=== PATIENT | female | born 1960 | race Caucasian/White ===

== ENCOUNTER 2017-08-09 13:40 | Emergency (ER) | payer MEDICARE, MEDICAID, SELFPAY ==
--- NOTE | 2017-08-09 | CT_ITS ---
CT abdomen pelvis wo con CLINICAL INDICATION: Left-sided flank pain ITS.REASON: ABD PAIN ORDERING PHYSICIAN: Tamara Chaudhari MD PATIENT AGE: 56 years COMPARISON: None TECHNIQUE: Axial images obtained with sagittal and coronal reformats. PROCEDURE: Oral Contrast: None IV Contrast: None . FINDINGS: There is a noncalcified 11 mm nodule in the right lower lobe and a calcified granuloma in left lower lobe. Prior cholecystectomy without ductal dilatation. No focal liver lesion. Spleen and adrenal glands have an unremarkable appearance. No obvious pancreatic mass. There is some minimal stranding of the fat along the superior mesenteric axis which is nonspecific. No renal calculi or hydronephrosis. No ureteral calculus or urinary bladder calculus. Unremarkable appendix. Mild thickening versus nondistention of the descending and sigmoid colon. There Is diverticulosis within the sigmoid colon but no evidence of diverticulitis. No intestinal obstruction or free air. No pelvic mass or abnormal fluid collection. Prior hysterectomy. No acute bony anomalies. IMPRESSION: 1. Mild thickening versus nondistention of the descending and sigmoid colon. Colitis is a consideration. There is diverticulosis but no evidence of diverticulitis. 2. Minimal stranding of the mesenteric fat along the mesenteric axis nonspecific 3. 11 mm right lower lobe nodule noncalcified. Considered dedicated outpatient CT chest without and with contrast for further evaluation
[2017-08-09 13:46] VITALS: BP 169/104; PULSE 103; RESP 18; TEMP 36.7; O2SAT 98; BMI 33.1
[2017-08-09 14:28] LABS: Basophils % 0.6 % (0.1-2.0); Eosinophils # 0.2 K/mm3 (0.0-0.4); Eosinophils % 2.6 % (0.1-12.0); Hematocrit 43.9 % (37.0-47.0); Hemoglobin 13.7 g/dL (12.2-16.2); Lymphocytes # 2.2 K/mm3 (0.7-4.5); Lymphocytes % 31.1 K/mm3 (10-50); Mean Corpuscular HGB Conc 31.3 g/dL (31.8-35.4); Mean Corpuscular Hemoglobin 26.6 pg (27.0-31.2); Mean Platelet Volume 7.1 fl (7.4-10.4); Monocytes # 0.3 K/mm3 (0.1-1.0); Monocytes % 3.6 % (1.7-9.3); Neutrophils # 4.3 K/mm3 (1.8-7.8); Platelet Count 287 K/mm3 (142-424); Red Blood Count 5.16 M/mm3 (4.20-5.40); Red Cell Distribution Width 13.9 % (11.5-17.5); White Blood Count 6.9 K/mm3 (4.8-10.8)
--- NOTE | 2017-08-09 14:36 | HMH.EDABDPAI ---
ED Disposition Clinical Impression: Colitis, Lung nodule, Hypokalemia Disposition: Home, Self-Care Condition on Discharge: Good Instructions: DI for Acute Abdomen Additional Instructions: Patient was given a copy of her CT scan after discussing the results: IMPRESSION: 1. Mild thickening versus nondistention of the descending and sigmoid colon. Colitis is a consideration. There is diverticulosis but no evidence of diverticulitis. 2. Minimal stranding of the mesenteric fat along the mesenteric axis nonspecific 3. 11 mm right lower lobe nodule noncalcified. Considered dedicated outpatient CT chest without and with contrast for further evaluation 1- start abx flagyl 500 mg tid. 2- bentyl prn cramps. 3- gotratde and pedialyte. 4- diet rich in potassium. 5- follow up with Dr Denny on your CT repoort , lung nodule and untill better. Prescriptions: Dicyclomine HCl [Bentyl 10mg capsule] 10 mg PO Q8HP PRN #21 capsule PRN Reason: Cramping metroNIDAZOLE [Flagyl] 500 mg PO Q8 #21 tablet Referrals: Js Marie MD [Primary Care Provider] - - Critical Care Critical Care Time: No Attestation: On 08/09/17, the high probability of a clinically significant, sudden or life threatening deterioration of the following system(s) required my full and direct attention, intervention and personal management. The time I documented below is in addition to time spent performing reported procedures but includes the following listed in this critical care notation. Medical Decision Making - Medical Records Medical records reviewed: Yes: I reviewed the patient's medical records. Vital Signs: 08/09/17 13:46 Temperature 98.0 F Temperature Source Oral Pulse Rate [Right Brachial] 103 H Respiratory Rate 18 Blood Pressure [Right Arm] 169/104 Blood Pressure Mean [Right Arm] 125 Blood Pressure Source [Right Arm] Automatic Cuff Blood Pressure Position [Right Arm] Sitting 02 Sat by Pulse Oximetry 98 Oxygen Delivery Method Room Air - Lab Data Lab Results 08/09/17 14:14: WBC 6.9, RBC 5.16, Hgb 13.7, Hct 43.9, MCV 85.0, MCH 26.6 L, MCHC 31.3 L, RDW 13.9, Plt Count 287, MPV 7.1 L, Neut % (Auto) 62.0, Lymph % (Auto) 31.1, [place] % (Auto) 3.6, Eos % (Auto) 2.6, Baso % (Auto) 0.6, Neut # (Auto) 4.3, Lymph # (Auto) 2.2, [place] # (Auto) 0.3, Eos # (Auto) 0.2, Baso # (Auto) 0.0 08/09/17 14:14: Sodium 141, Potassium 3.4 L, Chloride 105, Carbon Dioxide 29, Anion Gap 10.4, BUN 13, Creatinine 0.86, Estimated Creat Clear 95, Estimated GFR 68, Est GFR ( Amer) 82, Glucose 139 H, Calcium 8.7, Total Bilirubin 0.2, AST 16, ALT 30, Alkaline Phosphatase 102, Total Creatine Kinase 50, CK-MB (CK-2) < 0.5, CK-MB (CK-2) Rel Index 1.0, Troponin I < 0.02, Total Protein 7.7, Albumin 3.8, Globulin 3.9 H, Albumin/Globulin Ratio 1.0 L, Lipase 215 Result diagrams: 08/09/17 14:14 08/09/17 14:14 Orders (Tests/Meds): ED MEDICATIONS Generic Name Dose Route Start Last Admin Trade Name Freq PRN Reason Stop Dose Admin Sodium Chloride 1,000 mls @ 999 mls/hr 08/09/17 14:45 Sod Chloride 0.9% 1000ml Bag IV 08/09/17 15:45 .Q1H1M PEGGY Discontinued Medications Generic Name Dose Route Start Last Admin Trade Name Freq PRN Reason Stop Dose Admin Potassium Chloride 20 meq 08/09/17 15:36 Klor-Con 20meq Tablet PO 08/09/17 15:37 ONCE ONE ORDERS Category Date Time Status Blood Urea Nitrogen Stat Lab 08/09/17 14:08 Ordered Creatinine,Serum Stat Lab 08/09/17 14:08 Ordered Urinalysis and Microscopic Stat Lab 08/09/17 14:39 Ordered - CT Data CT Scan: Abdomen, Pelvis Time Received: 15:[address] Reviewed: Yes: I have viewed the radiologist's interpretation Preliminary Findings: Abnormal - Chalo Inquiry Pt receiving controlled substance: No Chalo was queried for this patient: No Medical Decision Making Narrative: I discussed with the patient her CT report below: IMPRESSION: 1. Mild thickening versu
--- NOTE | 2017-08-09 14:39 | ED_ITS ---
ED Disposition Clinical Impression: Colitis, Lung nodule, Hypokalemia Disposition: Home, Self-Care Condition on Discharge: Good Instructions: DI for Acute Abdomen Additional Instructions: Patient was given a copy of her CT scan after discussing the results: IMPRESSION: 1. Mild thickening versus nondistention of the descending and sigmoid colon. Colitis is a consideration. There is diverticulosis but no evidence of diverticulitis. 2. Minimal stranding of the mesenteric fat along the mesenteric axis nonspecific 3. 11 mm right lower lobe nodule noncalcified. Considered dedicated outpatient CT chest without and with contrast for further evaluation 1- start abx flagyl 500 mg tid. 2- bentyl prn cramps. 3- gotratde and pedialyte. 4- diet rich in potassium. 5- follow up with Dr Denny on your CT repoort , lung nodule and untill better. Prescriptions: Dicyclomine HCl [Bentyl 10mg capsule] 10 mg PO Q8HP PRN #21 capsule PRN Reason: Cramping metroNIDAZOLE [Flagyl] 500 mg PO Q8 #21 tablet Referrals: Js Marie MD [Primary Care Provider] - - Critical Care Critical Care Time: No Attestation: On 08/09/17, the high probability of a clinically significant, sudden or life threatening deterioration of the following system(s) required my full and direct attention, intervention and personal management. The time I documented below is in addition to time spent performing reported procedures but includes the following listed in this critical care notation. Medical Decision Making - Medical Records Medical records reviewed: Yes: I reviewed the patient's medical records. Vital Signs: 08/09/17 13:46 Temperature 98.0 F Temperature Source Oral Pulse Rate [Right Brachial] 103 H Respiratory Rate 18 Blood Pressure [Right Arm] 169/104 Blood Pressure Mean [Right Arm] 125 Blood Pressure Source [Right Arm] Automatic Cuff Blood Pressure Position [Right Arm] Sitting 02 Sat by Pulse Oximetry 98 Oxygen Delivery Method Room Air - Lab Data Lab Results 08/09/17 14:14: WBC 6.9, RBC 5.16, Hgb 13.7, Hct 43.9, MCV 85.0, MCH 26.6 L, MCHC 31.3 L, RDW 13.9, Plt Count 287, MPV 7.1 L, Neut % (Auto) 62.0, Lymph % ( Auto) 31.1, [place] % (Auto) 3.6, Eos % (Auto) 2.6, Baso % (Auto) 0.6, Neut # (Auto ) 4.3, Lymph # (Auto) 2.2, [place] # (Auto) 0.3, Eos # (Auto) 0.2, Baso # (Auto) 0.0 08/09/17 14:14: Sodium 141, Potassium 3.4 L, Chloride 105, Carbon Dioxide 29, Anion Gap 10.4, BUN 13, Creatinine 0.86, Estimated Creat Clear 95, Estimated GFR 68, Est GFR ( Amer) 82, Glucose 139 H, Calcium 8.7, Total Bilirubin 0.2, AST 16, ALT 30, Alkaline Phosphatase 102, Total Creatine Kinase 50, CK-MB ( CK-2) < 0.5, CK-MB (CK-2) Rel Index 1.0, Troponin I < 0.02, Total Protein 7.7, Albumin 3.8, Globulin 3.9 H, Albumin/Globulin Ratio 1.0 L, Lipase 215 Result diagrams: 08/09/17 14:14 08/09/17 14:14 Orders (Tests/Meds): ED MEDICATIONS Generic Name Dose Route Start Last Admin Trade Name Freq PRN Reason Stop Dose Admin Sodium Chloride 1,000 mls @ 999 mls/hr 08/09/17 14:45 Sod Chloride 0.9% 1000ml Bag IV 08/09/17 15:45 .Q1H1M PEGGY Discontinued Medications Generic Name Dose Route Start Last Admin Trade Name Freq PRN Reason Stop Dose Admin Potassium Chloride 20 meq 08/09/17 15:36 Klor-Con 20meq Tablet PO 08/09/17 15:37 ONCE ONE
[2017-08-09 14:44] LABS: Alanine Aminotransferase 30 U/L (12-78); Albumin Level 3.8 gm/dL (3.4-5.0); Alkaline Phosphatase 102 U/L (46-116); Anion Gap 10.4 mEq/L (5-15); Aspartate Amino Transferase 16 U/L (15-37); Bilirubin,Total 0.2 mg/dL (0.2-1.0); Blood Urea Nitrogen 13 mg/dL (7-18); Calcium 8.7 mg/dL (8.5-10.1); Carbon Dioxide 29 mmol/L (21.0-32.0); Chloride 105 mmol/L (98-107); Creatine Kinase 50 U/L (26-192); Creatinine Clearance Estimated 95 mL/min (0-300); Creatinine,Serum 0.86 mg/dL (0.55-1.02); Estimated Glomerular Filt Rate 68 ml/min (>60); GFR (African American) 82 ML/MIN (>60); Globulin 3.9 gm/dl (1.3-3.2); Glucose 139 mg/dL (74-106); Lipase 215 u/L (73-393); Potassium 3.4 mmoL/L (3.5-5.1); Sodium 141 mmol/L (136-145); Total Protein,Serum 7.7 gm/dL (6.4-8.2); Troponin I < 0.02 ng/ml (0.00-0.06)
[2017-08-09 14:53] LABS: Creatine Kinase MB < 0.5 mg/ml (0.0-3.6)
== END 2017-08-09 15:55 | disposition home or self-care (01) ==
PROVIDERS: Emergency Provider Emergency Medicine; Family Provider Internal Medicine Adolescent Medicine; PCP Internal Medicine Adolescent Medicine
DX: K52.9 Noninfective gastroenteritis and colitis, unspecified (principal); R91.1 Solitary pulmonary nodule; E87.6 Hypokalemia; Z88.1 Allergy status to other antibiotic agents
CPT/HCPCS: 74176; 80053; 82550; 82553; 83690; 84484; 85025; 96365; 99282

== ENCOUNTER → 2017-08-14 13:02 | Outpatient (CLI) | payer MEDICARE, MEDICAID, SELFPAY ==
[2017-08-14 13:30] LABS: Blood Urea Nitrogen 12 mg/dL (7-18); Creatinine,Serum 0.81 mg/dL (0.55-1.02); Estimated Glomerular Filt Rate 73 ml/min (>60); GFR (African American) 88 ML/MIN (>60)
--- NOTE | 2017-08-14 13:37 | CT_ITS ---
CT chest wo/w con HISTORY: Solitary pulmonary nodule, lung nodule seen on recent abdomen CT, cough ITS.REASON: LUNG NODULE, TOBACCO USE, COUGH ORDERING PHYSICIAN: Js Marie MD PATIENT AGE: 56 years TECHNIQUE: Axial images obtained without and with contrast. Sagittal and coronal reformatted images are also generated and reviewed. CONTRAST: 75ml Isovue 370 I.V. COMPARISON: Abdomen CT of 08/09/2017 FINDINGS: There is an azygos fissure is a normal variant. Scattered small lymph nodes are present in the mediastinum measuring up to 1.3 x 0.7 cm in the AP window. No hilar adenopathy or mass evident. Normal heart size. No evidence of pericardial effusion. No evidence of aortic aneurysm or dissection. There are mild centrilobular and paraseptal emphysematous changes. A calcified granuloma is present in the right upper lobe. There is a 1 x 0.8 cm noncalcified nodule in the right middle lobe inferiorly. The margins are well-circumscribed. There may be some minimal enhancement of the nodule. There are other calcified granulomas in right and left lungs. No other noncalcified nodules are evident. No lobar consolidation or collapse. No effusions. No acute bony anomalies. Upper abdominal images are unremarkable. IMPRESSION: 1. 10 x 8 mm noncalcified nodule in the right middle lobe. There are other nodules present which are calcified. This may very well represent a noncalcified granuloma. His mid present on an old lateral chest x-ray of 04/17/2011. In view of the patient's history of tobacco use, would recommend 6 month follow-up chest CT to confirm short-term stability. 2. Mild centrilobular and paraseptal emphysematous change.
--- NOTE | 2017-08-14 14:29 | HMH.ITSHM ---
BENTYL,OMEPRAZOLE,FLAGYL
== END ==
PROVIDERS: Family Provider Internal Medicine Adolescent Medicine; PCP Internal Medicine Adolescent Medicine; Visit Provider Internal Medicine Adolescent Medicine
DX: R91.1 Solitary pulmonary nodule (principal); R05 Cough; Z87.891 Personal history of nicotine dependence
CPT/HCPCS: 36415; 71270; 82565; 84520; Q9967

== ENCOUNTER → 2017-09-05 08:30 | Outpatient (POV) | payer MEDICARE, MEDICAID, SELFPAY | PROVIDERS: Visit Provider Thoracic Surgery (Cardiothoracic Vascular Surgery) | DX: Z00.00 Encounter for general adult medical examination without abnormal findings (principal) ==

== ENCOUNTER → 2017-11-20 16:01 | Outpatient (CLI) | payer MEDICARE, MEDICAID, SELFPAY ==
--- NOTE | 2017-11-20 16:17 | MR_ITS ---
MR lumbar spine wo con, MR 3-d myelogram/MRCP HISTORY: Low back pain, episodes on inability to move right leg LBP. Bilateral foot numbness on Plantar aspect. ITS.REASON: ACUTE RADICULAR LOW BACK PAIN ORDERING PHYSICIAN: Kathleen Scruggs PATIENT AGE: 57 years TECHNIQUE: Standard multiplanar multiecho sequences are performed without contrast. 3-D MIP and myelographic images are also rendered and reviewed FINDINGS: Spinal cord is at the T12-L1 level. There is normal alignment. T12-L1, L1-L2, L2-L3 and L3-L4 have an unremarkable appearance. L4-5: Mild concentric bulging disc with moderate facet and ligamentum flavum hypertrophic change right with moderate right lateral recess narrowing abutting the posterior lateral aspect of the L5 nerve root. There is mild right-sided foraminal narrowing. L5-S1: Mild concentric bulging disc. No extruded herniated disc or canal stenosis. IMPRESSION: 1. Bulging disc with moderate facet and ligamentum flavum hypertrophic change right with moderate right lateral recess narrowing abutting the posterior lateral aspect of the L5 nerve root. There is mild right-sided foraminal narrowing. 2. Mild bulging disc at L5-S1 3. No disc herniation or canal stenosis
[2017-11-20 19:22] LABS: Alanine Aminotransferase 27 U/L (12-78); Albumin Level 3.8 gm/dL (3.4-5.0); Albumin/Globulin Ratio 1.1 (1.1-1.8); Alkaline Phosphatase 100 U/L (46-116); Aspartate Amino Transferase 17 U/L (15-37); Bilirubin,Total 0.2 mg/dL (0.2-1.0); Blood Urea Nitrogen 18 mg/dL (7-18); Calcium 9.4 mg/dL (8.5-10.1); Carbon Dioxide 30 mmol/L (21.0-32.0); Chloride 103 mmol/L (98-107); Creatinine,Serum 0.96 mg/dL (0.55-1.02); Estimated Glomerular Filt Rate 59 ml/min (>60); GFR (African American) 72 ML/MIN (>60); Globulin 3.6 gm/dl (1.3-3.2); Glucose 86 mg/dL (74-106); Magnesium 1.9 mg/dL (1.4-2.2); Sodium 142 mmol/L (136-145); Total Protein,Serum 7.4 gm/dL (6.4-8.2)
== END ==
PROVIDERS: Family Provider Internal Medicine Adolescent Medicine; Visit Provider Nurse Practitioner Family
DX: M54.16 Radiculopathy, lumbar region (principal)
CPT/HCPCS: 36415; 72148; 76376; 80053; 83735

== ENCOUNTER 2017-12-05 10:30 | Outpatient (RCR) | payer MEDICARE, MEDICAID, SELFPAY | END 2017-12-05 10:31 | disposition home or self-care (01) | LOC: PT 10:30 | PROVIDERS: Family Provider Internal Medicine Adolescent Medicine; Visit Provider Nurse Practitioner Family | DX: M54.16 Radiculopathy, lumbar region (principal) | CPT/HCPCS: 97010; 97014; 97110; 97140; 97163; G0283 ==

== ENCOUNTER → 2018-03-18 10:04 | Outpatient (CLI) | payer MEDICARE, MEDICAID, SELFPAY ==
[2018-03-18 10:35] LABS: Blood Urea Nitrogen 11 mg/dL (7-18); Estimated Glomerular Filt Rate 64 ml/min (>60); GFR (African American) 78 ML/MIN (>60)
--- NOTE | 2018-03-18 10:47 | CT_ITS ---
CT chest wo/w con HISTORY: Follow-up pulmonary nodule ITS.REASON: LUNG NODULE ORDERING PHYSICIAN: Juan Haley MD PATIENT AGE: 57 years COMPARISON: 08/14/2017 Technique: Axial images obtained without and with contrast. Sagittal and coronal reformats are also generated and reviewed. All CT scans at the facility use one or more dose reduction, viz: automated exposure control, ma/kV adjustment per patient size (including targeted exams where dose is matched to indication, i.e. head), or iterative reconstruction technique. FINDINGS: Scattered small nodes are present within the mediastinum. These are not significantly changed. There is an azygos fissure is a normal variant. No mediastinal or hilar mass or adenopathy is evident. A few of these nodes contain calcium. There are coronary artery calcifications. The heart size is normal. No evidence of pericardial effusion. There are mild centrilobular and paraseptal emphysematous changes. There are scattered calcified granulomas. A well-circumscribed right middle lobe nodule is once again noted. The nodule is noncalcified and measures 9 x 8 mm not significantly changed. There is an additional 4 mm noncalcified nodule along the right hemidiaphragm posteriorly. This was present on the previous study but not as apparent due to the slice orientation. This is not significantly changed. Upper abdominal images are unremarkable. No acute bony anomalies evident. IMPRESSION: 1. Stable CT appearance of the chest. 2. No change in the 1 cm right middle lobe noncalcified nodule. 12 month follow-up recommended 3. Mild centrilobular and paraseptal emphysema with old granulomatous disease
== END ==
PROVIDERS: Family Provider Internal Medicine Adolescent Medicine; PCP Internal Medicine Adolescent Medicine; Visit Provider Thoracic Surgery (Cardiothoracic Vascular Surgery)
DX: R91.1 Solitary pulmonary nodule (principal)
CPT/HCPCS: 36415; 71270; 82565; 84520; Q9967

== ENCOUNTER → 2018-04-13 11:01 | Outpatient (CLI) | payer MEDICARE, MEDICAID, SELFPAY ==
--- NOTE | 2018-04-13 11:05 | NM_ITS ---
History and Indications: Hypertension, family history, chest pain, shortness of breath, palpitations and fatigue Procedure: Patient received a 0.4 mg of intravenous Lexiscan, resting heart rate was 79 beats per resting blood pressure 144/86, with Lexiscan maximum heart rate achieved was 1 23 bpm which is less than 85% of the maximum predicted heart rate and a blood pressure was 164 with 89. With Lexiscan patient complained of shortness of breath Electrocardiogram: Resting echocardiogram showed sinus rhythm, with Lexiscan there is less than 1.[address] segment depression noted from the baseline EKG. The EKG portion of the Lexiscan Myoview is nondiagnostic. Cardiac stress and resting SPECT images: Cardiac stress and resting SPECT images were obtained using technetium 99 Myoview 30.9 mCi at stress than 10.2 mCi at rest gated SPECT further analysis of segmental wall motion and calculation of the ejection fraction also done. Cardiac stress and rest SPECT images show uniform myocardial activity without any difficulty, computer derived ejection fraction is over 65% with no regional wall motion abnormality, right ventricle is normal size and contractility. Conclusion: 1. The EKG portion of the Lexiscan Myoview is nondiagnostic. 2. No scintigraphic evidence of reversible ischemia seen. 3. The ejection fraction is over 65% with no regional wall motion abnormality, right ventricle is normal size and contractility. 4. Normal Lexiscan Myoview study.
--- NOTE | 2018-04-13 12:58 | HMH.ITSHM ---
LISINOPRIL OMEPRAZOLE ALIVE MULTIVITAMIN VITAMINE K-2 SPIRIVA
== END ==
PROVIDERS: Family Provider Internal Medicine Adolescent Medicine; PCP Internal Medicine Adolescent Medicine; Visit Provider Internal Medicine Adolescent Medicine
DX: R07.9 Chest pain, unspecified (principal)
CPT/HCPCS: 78452; 93017; A9502; J2785

== ENCOUNTER → 2018-04-24 08:25 | Outpatient (POV) | payer MEDICARE, MEDICAID, SELFPAY | PROVIDERS: Visit Provider Thoracic Surgery (Cardiothoracic Vascular Surgery) | DX: Z00.00 Encounter for general adult medical examination without abnormal findings (principal) ==

== ENCOUNTER → 2018-10-21 14:29 | Outpatient (CLI) | payer MEDICARE, MEDICAID, SELFPAY ==
--- NOTE | 2018-10-21 14:33 | XR_ITS ---
XR chest 2V HISTORY: ITS.REASON: COUGH,HEMOPTYSIS ORDERING PHYSICIAN: Kathleen Scruggs PATIENT AGE: 57 years COMPARISON: 09/20/2018 FINDINGS: The cardiomediastinal silhouette and pulmonary vascularity are within normal limits. There is a patchy density noted in the right lung base medially which has developed since this exam is limited due to an area of pneumonia. Remaining lungs are clear. No acute bony findings. Calcification noted inferior to the right acromion and may be due to spurring or calcific tendinitis. There is an azygos fissure is a normal variant IMPRESSION: Patchy area of pneumonia in right lung base medially which has developed in the interval
[2018-10-21 14:54] LABS: Basophils # 0.1 K/mm3 (0-0.2); Eosinophils # 0.4 K/mm3 (0.0-0.4); Eosinophils % 5.7 % (0.1-12.0); Hemoglobin 13.8 g/dL (12.2-16.2); Lymphocytes % 26.5 % (10-50); Mean Corpuscular HGB Conc 32.1 g/dL (31.8-35.4); Mean Corpuscular Hemoglobin 26.7 pg (27.0-31.2); Mean Platelet Volume 6.5 fl (7.4-10.4); Monocytes # 0.3 K/mm3 (0.1-1.0); Monocytes % 4.1 % (1.7-9.3); Neutrophils # 4.7 K/mm3 (1.8-7.8); Neutrophils % 62.7 % (37.0-80.0); Platelet Count 331 K/mm3 (142-424); Red Blood Count 5.19 M/mm3 (4.20-5.40); Red Cell Distribution Width 14.5 % (11.5-17.5); White Blood Count 7.6 K/mm3 (4.8-10.8)
[2018-10-21 18:32] LABS: Alanine Aminotransferase 29 U/L (12-78); Albumin Level 4.1 gm/dL (3.4-5.0); Albumin/Globulin Ratio 1.2 (1.1-1.8); Alkaline Phosphatase 103 U/L (46-116); Anion Gap 15.4 mEq/L (5-15); Aspartate Amino Transferase 17 U/L (15-37); Bilirubin,Total 0.5 mg/dL (0.2-1.0); Blood Urea Nitrogen 11 mg/dL (7-18); Calcium 9.5 mg/dL (8.5-10.1); Carbon Dioxide 26 mmol/L (21.0-32.0); Chloride 106 mmol/L (98-107); Creatinine,Serum 0.82 mg/dL (0.55-1.02); Estimated Glomerular Filt Rate 71 ml/min (>60); GFR (African American) 86 ML/MIN (>60); Globulin 3.5 gm/dl (1.3-3.2); Glucose 80 mg/dL (74-106); Potassium 4.4 mmoL/L (3.5-5.1); Sodium 143 mmol/L (136-145); Total Protein,Serum 7.6 gm/dL (6.4-8.2)
== END ==
PROVIDERS: PCP Internal Medicine Adolescent Medicine; Visit Provider Nurse Practitioner Family
DX: R04.2 Hemoptysis (principal)
CPT/HCPCS: 36415; 71046; 80053; 85025

== ENCOUNTER → 2018-10-22 13:13 | Outpatient (CLI) | payer MEDICARE, MEDICAID, SELFPAY | PROVIDERS: Visit Provider Internal Medicine Adolescent Medicine | DX: R04.2 Hemoptysis | CPT/HCPCS: 87070; 87205 ==

== ENCOUNTER → 2018-11-23 09:37 | Outpatient (CLI) | payer MEDICARE, MEDICAID, SELFPAY ==
[2018-11-23 10:55] VITALS: PULSE 82; PULSE 89
--- NOTE | 2018-11-23 11:21 | XR_ITS ---
XR chest 2V HISTORY: ITS.REASON: RLL PNEUMONIA, PLEURITIC CHEST PAIN ORDERING PHYSICIAN: Kathleen Scruggs APRN PATIENT AGE: 58 years COMPARISON: 10/21/2018 FINDINGS: The cardiomediastinal silhouette and pulmonary vascularity are within normal limits. The lungs are clear without infiltrates, suspicious nodules, or pleural effusions. Previously noted infiltrate in the right lung base has improved. Calcified granuloma noted along the left lower lobe. There is an azygos fissure is normal variant No acute bony abnormalities. IMPRESSION: No acute finding
== END ==
PROVIDERS: PCP Nurse Practitioner Family; Visit Provider Nurse Practitioner Family
DX: J18.1 Lobar pneumonia, unspecified organism (principal); R07.81 Pleurodynia; J44.9 Chronic obstructive pulmonary disease, unspecified; R06.02 Shortness of breath
CPT/HCPCS: 71046; 94060; 94640; 94726; 94729

== ENCOUNTER 2018-12-11 09:31 | Day surgery (SDC) | payer MEDICARE, MEDICAID, SELFPAY ==
[2018-12-08 12:30] VITALS: BMI 32.8
[2018-12-11] VITALS (8 sets, daily range): BP systolic 124–144; BP diastolic 71–91; PULSE 76–89; RESP 16–18; TEMP 36.6–37.1; O2SAT 95–98
--- NOTE | 2018-12-11 10:40 | HMH.ANESCL ---
[facility] Anesthesia Checklist - Patient Identification Patient Identification: Arm Band, Verbal (Name & ) - Structural Data Admitted From: Home Planned Operative Procedure/s: EGD Consent for Planned Operative Procedure(s) Verified: Yes Verified Documents: Surgical Consent, History and Physical - NPO Status Verified Time NPO: 00:00 - Additional verifications Anesthesia Reactions: No - Airway Assessment C-Spine Mobility Assessed: Yes TMJ Mobility Assessed: Yes Dentition: Poor Dentition (Missing teeth) - Neurological Assessment Level of Consciousness: Awake, Alert, Appropriate, Follows Commands Hx Seizures: No Numbness or tingling in extremities: No - Anesthesia Plan Anesthesia Risk discussed: Yes Anesthesia Plan: Verified ASA Class: III Anesthesia Type: MAC [facility] History I have reviewed the patient's past medical history: Yes 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: Reports:: Chronic Obstructive Pulmonary Disease (COPD), Gastroesophageal Reflux Disease(GERD), Hypertension, Transient Ischemic Attacks (TIA) Denies:: Diabetes Mellitus Type 1, Diabetes Mellitus Type 2, Internal Pacemaker, MRSA, Seizures *Have you ever received a pneumonia vaccine?: No (NA) *Have you received a flu vaccine this season?: No Other 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: Reports: Anemia Other Surgeries: Yes: Cholecystectomy, Hysterectomy-Total, Tubal Ligation. No: Pacemaker Amputation: No - *Social History Smoking Status: Former smoker Tobacco Type: cigarettes Alcohol Intake: never *Occupational Status:: retired *Travel in the last 8 weeks: None (Unknown) Family Hx:: Heart Attack, Cancer
--- NOTE | 2018-12-11 10:59 | P.PCN_ITS ---
[facility] Procedure Note Procedure Note:: Upper Endoscopy Procedure Report: Esophagogastroduodenoscopy with cold biopsies and TTS balloon dilation Endoscopost: Brayden Funez II, MD Referring Physician: Js Marie M.D. Date of Procedure: December 11, 2018 Equipment: Olympus GIF 180 standard upper endoscope Sedation: MAC sedation Indications: Mrs. Bourgeois is a 58-year-old female who is here for diagnostic upper endoscopy secondary to dysphagia, reflux and intermittent dyspepsia. She formerly had nausea, vomiting and regurgitation. She was having some coughing. The patient does have some belching and bloating. Her heartburn and reflux are controlled with pantoprazole and ranitidine. She does have some dysphagia to breads and meats. She has some globus sensation. The patient did have a colonoscopy in April 2017. She does have some irritable bowel syndrome. Her colonoscopy showed 4 colon polyps (tubular adenomas x4) which were removed. Procedure: Prior to the procedure, a history and physical exam was performed, and patient's medications and allergies were reviewed. The risks, benefits and alternatives of the sedation and procedure were discussed with the patient. All questions were answered and informed consent was obtained. The patient was brought to the procedure room. Patient identification and proposed procedure were verified by the physician and the nurse. The patient was placed in a left lateral decubitus position and the scope was passed under direct vision. Throughout the procedure, the patient's blood pressure, pulse, and oxygen saturations were monitored continuously. The upper GI endoscopy was accomplished without difficulty. The patient tolerated the procedure well. Findings: The scope was passed directly into the upper esophagus and advanced to the third portion of the duodenum. The post bulbar duodenum and duodenal bulb were normal with normal mucosa and conniventes. The scope was withdrawn through a normal duodenal bulb and pylorus into the stomach. There was some bile reflux with linear reactive gastropathy and minor erosive gastropathy. The remainder of the antrum, body and fundus of the stomach were grossly normal. Upon retroflexion there was a very small 1 to 2 cm hiatal hernia. 2 biopsies were taken in the antrum and along the lesser curvature for histology to rule out gastritis and/or H pylori. The scope was then withdrawn into the esophagus. There was a distal esophageal ring/Schatzki's ring. There was no evidence of reflux esophagitis or Diallo's. There were tertiary contractions and evidence of moderate esophageal dysmotility. The entire esophagus was dilated to 60 [place]/20 mm with shattering of the Schatzki's ring. There was also some resistance at the cricopharyngeus/cricopharyngeal spasm. The remainder of the esophageal mucosa was normal. Impression: 1. Cricopharyngeal spasm status post dilation to 20 mm 2. Schatzki's ring dilated to 20 mm 3. Nonerosive GERD with mild esophageal dysmotility and small hiatal hernia (1 to 2 cm) 4. Bile reflux with linear reactive gastropathy Plan: I will discussed the findings with patient and family. The patient should improve with dilation of the esophagus. The patient is clinically improved with her nausea and vomiting. I will follow up the biopsies.
== END 2018-12-11 11:50 | disposition home or self-care (01) ==
LOC: OUTP 09:33
PROVIDERS: PCP Internal Medicine Adolescent Medicine; Visit Provider Internal Medicine Gastroenterology
PROC: 0DJ08ZZ Inspection of Upper Intestinal Tract, Via Natural or Artificial Opening Endoscopic (ICD-10-PCS; CPT 43235; principal; 2018-12-11 10:30)
DX: Z86.010 Personal history of colon polyps (principal); J39.2 Other diseases of pharynx; K22.2 Esophageal obstruction; K21.9 Gastro-esophageal reflux disease without esophagitis; K22.4 Dyskinesia of esophagus; K44.9 Diaphragmatic hernia without obstruction or gangrene; K31.9 Disease of stomach and duodenum, unspecified
CPT/HCPCS: 43239; 43249; 88305; C1726

== ENCOUNTER → 2018-12-28 14:49 | Outpatient (CLI) | payer MEDICARE, MEDICAID, SELFPAY ==
[2018-12-28 15:03] LABS: Basophils # 0.1 K/mm3 (0-0.2); Basophils % 0.8 % (0.1-2.0); Eosinophils # 0.4 K/mm3 (0.0-0.4); Eosinophils % 6.9 % (0.1-12.0); Hematocrit 41.3 % (37.0-47.0); Hemoglobin 12.7 g/dL (12.2-16.2); Lymphocytes # 2.1 K/mm3 (0.7-4.5); Lymphocytes % 34.3 % (10-50); Mean Corpuscular HGB Conc 30.7 g/dL (31.8-35.4); Mean Corpuscular Volume 81.4 fl (81-99); Mean Platelet Volume 7.2 fl (7.4-10.4); Monocytes # 0.3 K/mm3 (0.1-1.0); Monocytes % 4.4 % (1.7-9.3); Neutrophils # 3.3 K/mm3 (1.8-7.8); Neutrophils % 53.7 % (37.0-80.0); Platelet Count 271 K/mm3 (142-424); Red Blood Count 5.08 M/mm3 (4.20-5.40); Red Cell Distribution Width 14.2 % (11.5-17.5); White Blood Count 6.1 K/mm3 (4.8-10.8)
[2018-12-28 19:36] LABS: Blood Urea Nitrogen 14 mg/dL (7-18); Calcium 8.9 mg/dL (8.5-10.1); Carbon Dioxide 27 mmol/L (21.0-32.0); Chloride 108 mmol/L (98-107); Creatinine,Serum 0.84 mg/dL (0.55-1.02); Estimated Glomerular Filt Rate 69 ml/min (>60); GFR (African American) 84 ML/MIN (>60); Glucose 162 mg/dL (74-106); Sodium 144 mmol/L (136-145)
[2018-12-29 09:56] LABS: Hemoglobin A1C 6.3 % (0.0-7.0)
[2019-01-03 21:42] LABS: Immunoglobulin E, Total 175 IU/mL (6-495)
== END ==
PROVIDERS: Visit Provider Nurse Practitioner Family
DX: J44.9 Chronic obstructive pulmonary disease, unspecified (principal); I10 Essential (primary) hypertension; Z79.899 Other long term (current) drug therapy
CPT/HCPCS: 36415; 80048; 82785; 83036; 85025

== ENCOUNTER → 2019-02-01 09:01 | Outpatient (POV) | payer MEDICARE, MEDICAID, SELFPAY | PROVIDERS: PCP Nurse Practitioner Family; Visit Provider Nurse Practitioner Family | DX: Z00.00 Encounter for general adult medical examination without abnormal findings (principal) ==

== ENCOUNTER → 2019-03-24 13:32 | Outpatient (POV) | payer MEDICARE, MEDICAID, SELFPAY | DX: Z00.00 Encounter for general adult medical examination without abnormal findings (principal) ==

== ENCOUNTER → 2020-02-15 09:47 | Outpatient (CLI) | payer MEDICARE, MEDICAID, SELFPAY ==
[2020-02-15 10:28] LABS: Basophils % 0.8 % (0.1-2.0); Eosinophils # 0.2 K/mm3 (0.0-0.4); Eosinophils % 3.1 % (0.1-12.0); Hemoglobin 13.6 g/dL (12.2-16.2); Lymphocytes # 1.6 K/mm3 (0.7-4.5); Lymphocytes % 33.6 % (10-50); Mean Corpuscular HGB Conc 32.5 g/dL (31.8-35.4); Mean Corpuscular Hemoglobin 27.7 pg (27.0-31.2); Mean Corpuscular Volume 85.3 fl (81-99); Mean Platelet Volume 7.3 fl (7.4-10.4); Monocytes # 0.2 K/mm3 (0.1-1.0); Monocytes % 4.8 % (1.7-9.3); Neutrophils # 2.8 K/mm3 (1.8-7.8); Neutrophils % 57.8 % (37.0-80.0); Platelet Count 243 K/mm3 (142-424); Red Blood Count 4.92 M/mm3 (4.20-5.40); Red Cell Distribution Width 14.7 % (11.5-17.5); White Blood Count 4.9 K/mm3 (4.8-10.8)
[2020-02-15 10:37] LABS: Hemoglobin A1C 5.7 % (4.0-6.0)
[2020-02-15 10:51] LABS: Chloride 106 mmol/L (98-107); Potassium 4.4 mmoL/L (3.5-5.1); Sodium 141 mmol/L (136-145)
[2020-02-15 10:54] LABS: Alanine Aminotransferase 17 U/L (12-78); Albumin Level 4.1 g/dl (3.5-5.0); Albumin/Globulin Ratio 1.6 (1.1-1.8); Alkaline Phosphatase 82 U/L (38-126); Anion Gap 10.4 mEq/L (5-15); Aspartate Amino Transferase 21 U/L (14-36); Bilirubin,Total 0.5 mg/dl (0.2-1.3); Blood Urea Nitrogen 14 mg/dl (7-17); Carbon Dioxide 29 mmol/L (22.0-30.0); Cholesterol 175 mg/dl (140-200); Estimated Glomerular Filt Rate 73 ml/min (>60); GFR (African American) 88 ML/MIN (>60); Globulin 2.5 g/dL (1.3-3.2); Glucose 95 mg/dl (74-100); Total Protein,Serum 6.6 g/dl (6.3-8.2); Triglycerides 87 mg/dl (30-150); VLDL Cholesterol 17 mg/dL (0-40)
[2020-02-15 10:55] LABS: Chol/HDL Ratio 2.7 (1-3.5); HDL Cholesterol 64 mg/dl (40-60)
[2020-02-15 11:05] LABS: Direct LDL Cholesterol 89.14 mg/dL (100-129)
[2020-02-15 11:25] LABS: Thyroid Stimulating Hormone 1.46 uIU/mL (0.465-4.68)
[2020-02-17 08:56] LABS: Vitamin B12 357 pg/mL (232-1245)
== END ==
PROVIDERS: Visit Provider Nurse Practitioner Family
DX: R73.9 Hyperglycemia, unspecified (principal); I10 Essential (primary) hypertension; R53.81 Other malaise; K21.9 Gastro-esophageal reflux disease without esophagitis
CPT/HCPCS: 36415; 80053; 80061; 82607; 83036; 84443; 85025

== ENCOUNTER → 2020-02-29 16:46 | Outpatient (CLI) | payer MEDICARE, MEDICAID, SELFPAY | PROVIDERS: PCP Internal Medicine Adolescent Medicine; Visit Provider Internal Medicine Adolescent Medicine | DX: Z20.828 Contact with and (suspected) exposure to other viral communicable diseases (principal) | CPT/HCPCS: U0003 ==

== ENCOUNTER 2020-03-09 10:12 | Emergency (ER) | payer MEDICARE, MEDICAID, SELFPAY ==
[2020-03-09] VITALS (7 sets, daily range): BP systolic 138–195; BP diastolic 85–106; PULSE 82–95; RESP 18; TEMP 36.7–37.4; O2SAT 94–97; BMI 33.3
--- NOTE | 2020-03-09 10:25 | CT_ITS ---
PROCEDURE: CT ABDOMEN PELVIS W CON CLINICAL INDICATION: abd pain Left-sided pelvic pain, positive for shultz virus, history of uterine cancer COMPARISON: CT ABDPELWO CT abdomen pelvis wo con from 07/18/2018 TECHNIQUE: IV Contrast: 75ML OPTIRAY 350 Oral Contrast None Axial images obtained with sagittal and coronal reformats. All CT scans at the facility use one or more dose reduction, viz: automated exposure control, ma/kV adjustment per patient size (including targeted exams where dose is matched to indication, i.e. head), or iterative reconstruction technique. FINDINGS: LOWER THORAX: Infiltrate is present in the right lower lobe posteriorly. There is a noncalcified 9 mm nodule in the right middle lobe not significantly changed. Calcified granuloma is present in the left lower lobe. ABDOMEN & PELVIS: There are post cholecystectomy changes the spleen, adrenal glands, and pancreas have an unremarkable appearance. No renal or ureteral calculi. No hydronephrosis. There is increased density of the central mesenteric fat with a few scattered small mesenteric lymph nodes which is not appear significantly changed. There is no evidence of appendicitis. The cecum is midline and the appendix is to the left of midline. There is diverticulosis of the descending and sigmoid colon. No evidence of diverticulitis. There has been a prior hysterectomy. There are few scattered small nodes in the inguinal regions. No acute bony findings. IMPRESSION: 1. Right lower lobe pneumonia 2. Nida mesenteric sign nonspecific not significantly changed may be seen with chronic inflammation/mesenteric adenitis 3. Other nonacute findings as described above Dictated by: Mike Elder MD 03/09/2020 12:04 Mike Elder MD in [place] 03/09/2020 12:04
--- NOTE | 2020-03-09 10:25 | XR_ITS ---
PROCEDURE: XR CHEST PORTABLE CLINICAL HISTORY: fever Shortness of air and fever, positive shultz virus COMPARISON: CT CHESTWW CT chest wo/w con from 03/18/2018 CR CXR1VP XR chest portable from 05/04/2018 CR CXR2V XR chest 2V from 09/20/2018 DX CXR2V XR chest 2V from 10/21/[address] ABDOMEN PELVIS W CON from 03/09/2020 FINDINGS: The cardiomediastinal silhouette and pulmonary vascularity are within normal limits. Increased density is present in the right lower lobe consistent with right basilar infiltrate as seen on the abdomen CT. Remaining lungs are clear side from a granuloma in the right upper lobe. There is an azygos fissure is a normal variant. No acute bony abnormalities. IMPRESSION: Patchy infiltrate in the right lower lobe Dictated by: Mike Elder MD 03/09/2020 12:14 Mike Elder MD in [facility] 03/09/2020 12:14
[2020-03-09 10:36] LABS: Microscopic, Urine URINE MICROSCOPIC (MICROSCOPIC)
[2020-03-09 10:37] LABS: Basophils % 0.8 % (0.1-2.0); Eosinophils % 0.7 % (0.1-12.0); Hematocrit 42.6 % (37.0-47.0); Hemoglobin 14.3 g/dL (12.2-16.2); Lymphocytes # 1.7 K/mm3 (0.7-4.5); Lymphocytes % 33.7 % (10-50); Mean Corpuscular HGB Conc 33.5 g/dL (31.8-35.4); Mean Corpuscular Hemoglobin 27.6 pg (27.0-31.2); Mean Corpuscular Volume 82.3 fl (81-99); Mean Platelet Volume 7.2 fl (7.4-10.4); Monocytes # 0.3 K/mm3 (0.1-1.0); Monocytes % 5.8 % (1.7-9.3); Platelet Count 222 K/mm3 (142-424); Red Blood Count 5.17 M/mm3 (4.20-5.40); Red Cell Distribution Width 14.5 % (11.5-17.5); White Blood Count 5.2 K/mm3 (4.8-10.8)
[2020-03-09 10:39] LABS: Appearance,Urine CLEAR (Clear); Bilirubin,Urine Negative (Negative); Blood, Urine Negative (Negative); Color,Urine YELLOW (Yellow); Glucose,Urine (UA) Negative (Negative); Ketones,Urine Negative (Negative); Leukocyte Esterase,Urine Negative (Negative); Nitrate,Urine Negative (Negative); Protein,Urine Negative (Negative); Specific Gravity, Urine 1.025 (1.005-1.030); Urobilinogen,Urine 0.2 EU/dl (0.2)
[2020-03-09 10:46] LABS: WBC,Urine Occasional #/hpf (0-3)
[2020-03-09 10:48] LABS: Alanine Aminotransferase 54 U/L (12-78); Albumin Level 4.3 g/dl (3.5-5.0); Albumin/Globulin Ratio 1.3 (1.1-1.8); Alkaline Phosphatase 128 U/L (38-126); Anion Gap 12.2 mEq/L (5-15); Aspartate Amino Transferase 48 U/L (14-36); Bilirubin,Total 0.5 mg/dl (0.2-1.3); Blood Urea Nitrogen 12 mg/dl (7-17); Calcium 9.3 mg/dl (8.4-10.2); Carbon Dioxide 29 mmol/L (22.0-30.0); Chloride 103 mmol/L (98-107); Creatinine Clearance Estimated 80 mL/min (50-200); Estimated Glomerular Filt Rate 85 ml/min (>60); GFR (African American) 103 ML/MIN (>60); Globulin 3.3 g/dL (1.3-3.2); Glucose 89 mg/dl (74-100); Potassium 4.2 mmoL/L (3.5-5.1); Sodium 140 mmol/L (136-145); Total Protein,Serum 7.6 g/dl (6.3-8.2)
--- NOTE | 2020-03-09 10:49 | HMH.EDGENADL ---
ED Disposition Clinical Impression: Lung nodule, Mesenteric adenitis Pneumonia Qualifiers: Pneumonia type: due to unspecified organism Laterality: right Lung location: lower lobe of lung Qualified Code(s): J18.9 - Pneumonia, unspecified organism Disposition: Home, Self-Care Condition on Discharge: Good Instructions: DI for Acute Abdomen, Pneumonia-Adult Additional Instructions: You were seen on an emergency basis. It is very important that you follow up with your primary care provider and/or specialist as we discussed within 2 days. All labs and imaging were obtained and interpreted here to rule out life threatening emergencies, but your final results should be reviewed by your primary doctor at your follow up appointment. Please return to the emergency department if any of your symptoms worsen, or if they do not improve as we discussed. Prescriptions: Doxycycline Hyclate [Doxycycline 100mg Capsule] 100 mg PO Q12 #20 cap Prescription Printed Referrals: Js Marie MD [Primary Care Provider] - - Critical Care Critical Care Time: No Attestation: On 03/09/20, the high probability of a clinically significant, sudden or life threatening deterioration of the following system(s) required my full and direct attention, intervention and personal management. The time I documented below is in addition to time spent performing reported procedures but includes the following listed in this critical care notation. Medical Decision Making - Medical Records Medical records reviewed: Yes: I reviewed the patient's medical records. - Chalo Inquiry Pt receiving controlled substance: No Vital Signs: 03/09/20 10:34 03/09/20 10:43 03/09/20 11:02 Temperature 99.3 F Temperature Source Oral Pulse Rate [Radial] 95 H 82 87 Respiratory Rate 18 Blood Pressure [Right Arm] 168/106 H 152/98 H 138/85 Blood Pressure Mean [Right Arm] 126 116 102 Blood Pressure Source [Right Arm] Automatic Cuff Automatic Cuff Automatic Cuff Blood Pressure Position [Right Arm] Sitting Sitting Sitting 02 Sat by Pulse Oximetry 97 95 96 Oxygen Delivery Method Room Air Room Air Room Air 03/09/20 11:30 03/09/20 12:16 03/09/20 13:13 Temperature 99.3 F Temperature Source Oral Pulse Rate [Radial] 83 85 84 Respiratory Rate 18 Blood Pressure [Right Arm] 195/101 H 145/89 H 182/88 H Blood Pressure Mean [Right Arm] 132 107 119 Blood Pressure Source [Right Arm] Automatic Cuff Automatic Cuff Automatic Cuff Blood Pressure Position [Right Arm] Sitting Sitting Sitting 02 Sat by Pulse Oximetry 95 94 L 96 Oxygen Delivery Method Room Air Room Air Room Air - Lab Data Lab Results 03/09/20 10:27: Urine Color Yellow, Urine Appearance Clear, Urine pH 6.0, Ur Specific [place] 1.025, Urine Protein Negative, Urine Glucose (UA) Negative, Urine Ketones Negative, Urine Blood Negative, Urine Nitrate Negative, Urine Bilirubin Negative, Urine Urobilinogen 0.2, Ur Leukocyte Esterase Negative, Urine RBC 3-5, Urine WBC Occasional, Ur Squamous Epith Cells 3-5, Urine Bacteria None 03/09/20 10:27: WBC 5.2, RBC 5.17, Hgb 14.3, Hct 42.6, MCV 82.3, MCH 27.6, MCHC 33.5, RDW 14.5, Plt Count 222, MPV 7.2 L, Neut % (Auto) 59.0, Lymph % (Auto) 33.7, [place] % (Auto) 5.8, Eos % (Auto) 0.7, Baso % (Auto) 0.8, Neut # (Auto) 3.0, Lymph # (Auto) 1.7, [place] # (Auto) 0.3, Eos # (Auto) 0.0, Baso # (Auto) 0.0 03/09/20 10:27: Sodium 140, Potassium 4.2, Chloride 103, Carbon Dioxide 29, Anion Gap 12.2, BUN 12, Creatinine 0.70, Estimated Creat Clear 80, Estimated GFR 85, Est GFR ( Amer) 103, Glucose 89, Calcium 9.3, Total Bilirubin 0.5, AST 48 H, ALT 54, Alkaline Phosphatase 128 H, Total Protein 7.6, Albumin 4.3, Globulin 3.3 H, Albumin/Globulin Ratio 1.3 Result diagrams: 03/09/20 10:27 03/09/20 10:27 Orders (Tests/Meds): ED MEDICATIONS Generic Name Dose Route Start Last Admin Trade Name Freq PRN Reason Stop Dose Admin Doxycycline Hyclate 100 mg/ 250 mls @ 166.667 mls/hr 03/09
--- NOTE | 2020-03-09 11:21 | PC.NURSE ---
Pt with rad.
--- NOTE | 2020-03-09 11:27 | PC.NURSE ---
Pt returned from rad.
--- NOTE | 2020-03-09 12:54 | PC.NURSE ---
SPOKE TO SUSAN IN PHARMACY TO SEND DOWN ORDERED DOXYCYCLINE
--- NOTE | 2020-03-09 12:55 | PC.NURSE ---
DANIELA SLOAN FOR ATTENDING PROVIDER
--- NOTE | 2020-03-09 13:15 | PC.NURSE ---
Dr Leiva returned call, speaking with ANKITA VÁZQUEZ now.
== END 2020-03-09 15:00 | disposition home or self-care (01) ==
PROVIDERS: Emergency Provider Physician Assistant; PCP Internal Medicine Adolescent Medicine
DX: J18.9 Pneumonia, unspecified organism (principal); R91.1 Solitary pulmonary nodule; I88.0 Nonspecific mesenteric lymphadenitis; U07.1 COVID-19; J44.9 Chronic obstructive pulmonary disease, unspecified; I10 Essential (primary) hypertension; D64.9 Anemia, unspecified; K21.9 Gastro-esophageal reflux disease without esophagitis; Z88.1 Allergy status to other antibiotic agents; Z90.710 Acquired absence of both cervix and uterus; Z90.49 Acquired absence of other specified parts of digestive tract; Z87.891 Personal history of nicotine dependence; Z79.899 Other long term (current) drug therapy
CPT/HCPCS: 71045; 74177; 80053; 81001; 85025; 96365; 99284; Q9967

== ENCOUNTER → 2020-09-16 13:03 | Outpatient (CLI) | payer MEDICARE, MEDICAID, SELFPAY ==
[2020-09-16 13:15] LABS: Basophils # 0.1 K/mm3 (0-0.2); Basophils % 0.8 % (0.1-2.0); Eosinophils # 1.4 K/mm3 (0.0-0.4); Eosinophils % 16.4 % (0.1-12.0); Hematocrit 42.7 % (37.0-47.0); Hemoglobin 13.6 g/dL (12.2-16.2); Lymphocytes # 2.1 K/mm3 (0.7-4.5); Lymphocytes % 24.9 % (10-50); Mean Corpuscular HGB Conc 31.8 g/dL (31.8-35.4); Mean Corpuscular Hemoglobin 27.3 pg (27.0-31.2); Mean Corpuscular Volume 85.9 fl (81-99); Mean Platelet Volume 7.4 fl (7.4-10.4); Monocytes # 0.3 K/mm3 (0.1-1.0); Monocytes % 3.7 % (1.7-9.3); Neutrophils # 4.6 K/mm3 (1.8-7.8); Neutrophils % 54.1 % (37.0-80.0); Platelet Count 268 K/mm3 (142-424); Red Blood Count 4.98 M/mm3 (4.20-5.40); Red Cell Distribution Width 14.5 % (11.5-17.5); White Blood Count 8.4 K/mm3 (4.8-10.8)
[2020-09-16 14:00] LABS: Chloride 106 mmol/L (98-107); Sodium 140 mmol/L (136-145)
[2020-09-16 14:01] LABS: Potassium 4.3 mmoL/L (3.5-5.1)
[2020-09-16 14:03] LABS: Alanine Aminotransferase 17 U/L (12-78); Alkaline Phosphatase 98 U/L (38-126); Anion Gap 11.3 mEq/L (5-15); Aspartate Amino Transferase 21 U/L (14-36); Bilirubin,Total 0.4 mg/dl (0.2-1.3); Blood Urea Nitrogen 12 mg/dl (7-17); Carbon Dioxide 27 mmol/L (22.0-30.0); Estimated Glomerular Filt Rate 73 ml/min (>60); GFR (African American) 88 ML/MIN (>60)
[2020-09-16 14:04] LABS: Albumin Level 4.5 g/dl (3.5-5.0); Calcium 9.9 mg/dl (8.4-10.2); Chol/HDL Ratio 2.8 (1-3.5); Cholesterol 179 mg/dl (140-200); Globulin 2.3 g/dL (1.3-3.2); Glucose 126 mg/dl (74-100); HDL Cholesterol 64 mg/dl (40-60); Total Protein,Serum 6.8 g/dl (6.3-8.2); Triglycerides 84 mg/dl (30-150); VLDL Cholesterol 17 mg/dL (0-40)
[2020-09-16 14:15] LABS: Direct LDL Cholesterol 89.84 mg/dL (100-129)
== END ==
PROVIDERS: Visit Provider Nurse Practitioner Family
DX: I10 Essential (primary) hypertension (principal); Z87.19 Personal history of other diseases of the digestive system
CPT/HCPCS: 36415; 80053; 80061; 85025

== ENCOUNTER → 2020-11-02 14:47 | Outpatient (CLI) | payer MEDICARE, MEDICAID, SELFPAY ==
[2020-11-02 15:42] LABS: Coronavirus 19 IgG Antibody Positive (Negative); Coronavirus 19 IgM Antibody Negative (Negative)
== END ==
PROVIDERS: Visit Provider Internal Medicine Gastroenterology
DX: Z20.822 Contact with and (suspected) exposure to COVID-19 (principal); Z01.812 Encounter for preprocedural laboratory examination; Z13.810 Encounter for screening for upper gastrointestinal disorder; Z12.11 Encounter for screening for malignant neoplasm of colon; R19.7 Diarrhea, unspecified; R10.13 Epigastric pain
CPT/HCPCS: 36415; 86328

== ENCOUNTER 2020-11-03 11:01 | Day surgery (SDC) | payer MEDICARE, MEDICAID, SELFPAY ==
[2020-10-26 14:13] VITALS: BMI 34.5
[2020-11-03 11:26] VITALS: BP 142/89; PULSE 96; RESP 18; TEMP 37.1; O2SAT 99
--- NOTE | 2020-11-03 11:42 | HMH.ANESCL ---
[facility] Anesthesia Checklist - Patient Identification Patient Identification: Arm Band - Structural Data Admitted From: Home Planned Operative Procedure/s: EGD, colonoscopy Consent for Planned Operative Procedure(s) Verified: Yes - NPO Status Verified Time NPO: 00:00 - Additional verifications Anesthesia Reactions: No - Airway Assessment Dentition: Good Dentition - Neurological Assessment Level of Consciousness: Awake, Alert Hx Seizures: No Numbness or tingling in extremities: No - Anesthesia Plan Anesthesia Risk discussed: Yes Anesthesia Plan: Verified ASA Class: III Anesthesia Type: MAC [facility] History I have reviewed the patient's past medical history: Yes 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: Reports:: Cancer (uterine), Chronic Obstructive Pulmonary Disease (COPD), Gastroesophageal Reflux Disease(GERD), Hypertension, Lung Disease (COPD/asthma), Transient Ischemic Attacks (TIA) Denies:: Diabetes Mellitus Type 1, Diabetes Mellitus Type 2, Internal Pacemaker, MRSA, Seizures *Have you ever received a pneumonia vaccine?: No *Have you received a flu vaccine this season?: No Other 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: Reports: Anemia Anesthesia experience/problems:: None Other Surgeries: Yes: Cholecystectomy, Hysterectomy-Total, Tubal Ligation. No: Pacemaker Amputation: No - *Social History Smoking Status: Former smoker Tobacco Type: cigarettes Alcohol Intake: never Substance Use Type: denies use *Occupational Status:: disabled Housing: house *Travel in the last 8 weeks: None Family Hx:: Cancer, Coronary Artery Disease, Diabetes
[2020-11-03 12:00] VITALS: O2SAT 99
--- NOTE | 2020-11-03 12:19 | HMH.PROC ---
[facility] Procedure Note Procedure Note:: Upper Endoscopy Procedure Report: Esophagogastroduodenoscopy with cold biopsies and TTS balloon dilation Endoscopost: Brayden Funez II, MD Referring Physician: Js Marie M.D. Date of Procedure: November 03, 2020 Equipment: Olympus GIF 190 standard upper endoscope Sedation: MAC sedation Indications: Mrs. Bourgeois is a 59-year-old female with epigastric abdominal pain, nausea, bloating and early satiety. She also has some heartburn and reflux. She has had some globus sensation. She has had some diarrhea. Her symptoms are worsened postprandially. The patient did have a prior EGD with or and November 2018 and had a Schatzki's ring and cricopharyngeal spasm which were dilated. She reports no melena or weight loss. She reports no hematemesis or dysphagia. Procedure: Prior to the procedure, a history and physical exam was performed, and patient's medications and allergies were reviewed. The risks, benefits and alternatives of the sedation and procedure were discussed with the patient. All questions were answered and informed consent was obtained. The patient was brought to the procedure room. Patient identification and proposed procedure were verified by the physician and the nurse. The patient was placed in a left lateral decubitus position and the scope was passed under direct vision. Throughout the procedure, the patient's blood pressure, pulse, and oxygen saturations were monitored continuously. The upper GI endoscopy was accomplished without difficulty. The patient tolerated the procedure well. Findings: The scope was passed directly into the upper esophagus and advanced to the third portion of the duodenum. The post bulbar duodenum and duodenal bulb were normal with normal mucosa and conniventes. The scope was withdrawn through a normal duodenal bulb and pylorus into the stomach. There was moderate bile reflux with linear reactive gastropathy of the antrum and body of the stomach. The remainder of the fundus of the stomach was grossly normal. Upon retroflexion there was a small 1 to 2 cm hiatal hernia. 2 biopsies were taken in the antrum and along the lesser curvature for histology to rule out gastritis and/or H pylori. The scope was then withdrawn into the esophagus. There was a serrated Z-line but no evidence of reflux esophagitis or Diallo's. Biopsies were taken at the GE junction. There was a Schatzki's ring. There were tertiary contractions and evidence of moderate esophageal dysmotility. The entire esophagus was dilated to 60 Cam[place]/20 mm with a TTS hydrostatic balloon. There was some resistance at the cricopharyngeus. The remainder of the esophageal mucosa was normal. Impression: 1. Cricopharyngeal spasm status post dilation to 20 mm 2. Schatzki's ring dilated to 20 mm 3. Nonerosive GERD with moderate esophageal dysmotility and small 1 to 2 cm hiatal hernia 4. Bile reflux with moderate linear reactive gastropathy Plan: I will follow-up the biopsies and discuss the findings with the patient and family. She does have functional dyspepsia and functional diarrhea. We will discuss dietary measures and treatment options. I will proceed with colonoscopy.
--- NOTE | 2020-11-03 12:36 | P.PCN_ITS ---
[facility] Procedure Note Procedure Note:: Colonoscopy Procedure Report: Colonoscopy with cold snare polypectomy and cold biopsies Endoscopist: Brayden Funez II, MD Referring physician: Js Marie M.D. Date of Procedure: November 03, 2020 Equipment: Olympus 190 variable stiffness pediatric colonoscope Sedation: MAC sedation Indication: Mrs. Bourgeois is a 59-year-old female who is here for diagnostic colonoscopy. She has had more epigastric abdominal pain, nausea and diarrhea. She does have a history of IBS with diarrhea. She does state that she had a painful colonoscopy 20 years ago and does have malrotation. She reports epigastric and some lower abdominal pain and discomfort with bloating and abdominal swelling. She has had more diarrhea recently but does sometimes alternate with constipation. She reports no rectal bleeding or weight loss. She does state that her maternal grandmother and maternal great aunt had colon cancer. Her last colonoscopy in April 2017 revealed for colon polyps (tubular adenomas x4) which were removed. Procedure: Prior to the procedure, a history and physical exam was performed, and patient's medications and allergies were reviewed. The risks, benefits and alternatives of the sedation and procedure were discussed with the patient. All questions were answered and informed consent was obtained. The patient was brought to the procedure room. Patient identification and proposed procedure were verified by the physician and the nurse. The patient was placed in a left lateral decubitus position and the scope was passed under direct vision. Throughout the procedure, the patient's blood pressure, pulse, and oxygen saturations were monitored continuously. The colonoscopy was accomplished without difficulty. The patient tolerated the procedure well. Findings: On digital rectal examination there was normal rectal tone. There were no external hemorrhoids. The colonoscope was introduced through the anal canal to the rectum and advanced to the cecum. The ileocecal valve and appendiceal orifice were identified. The scope was advanced a short distance into the ileum which appeared grossly normal. The scope was then withdrawn into the colon. The cecum, ascending and transverse colon and mucosa were grossly normal. Cold biopsies were taken from the right colon randomly to rule out microscopic colitis. There were 2 diminutive colon polyps (4 and 4 mm) in the transverse colon that were both removed via cold snare polypectomy. There were scattered diverticuli throughout the descending and sigmoid colon (LEFT colon). The rectum itself was normal. Upon retroflexion within the rectum there were grade 1-2 internal hemorrhoids. The preparation was excellent throughout with [place] Preparation Score of 9. The cecal time was 12 minutes. Impression: 1. Diminutive colonic polyps x2 2. Left-sided diverticulosis 3. Grade 1-2 internal hemorrhoids Plan: I will follow up the polyp histology and recommend repeat screening/surveillance colonoscopy again in 7 years if the polyps are adenomatous. I do feel the patient has IBS?D. I will await the biopsies. If there is evide nce of microscopic colitis, I would consider budesonide. If these biopsies are normal, we may consider Viberzi or Lotronex. I would also consider bulk fiber, probiotic, IBgard and/or dicyclomine.
[2020-11-03 12:38] VITALS: BP 109/71; PULSE 77; RESP 18; TEMP 36.3; O2SAT 91
[2020-11-03 12:48] VITALS: BP 128/74; PULSE 78; RESP 18; O2SAT 91
[2020-11-03 12:58] VITALS: BP 131/64; PULSE 78; RESP 18; O2SAT 96
[2020-11-03 13:40] VITALS: BP 118/79; PULSE 75; RESP 18; O2SAT 95
== END 2020-11-03 13:45 | disposition home or self-care (01) ==
LOC: OUTP 11:06
PROVIDERS: PCP Internal Medicine Adolescent Medicine; Visit Provider Internal Medicine Gastroenterology
PROC: 0DJ08ZZ Inspection of Upper Intestinal Tract, Via Natural or Artificial Opening Endoscopic (ICD-10-PCS; CPT 43235; principal; 2020-11-03 12:00)
DX: K30 Functional dyspepsia (principal); K59.1 Functional diarrhea; J39.2 Other diseases of pharynx; K22.2 Esophageal obstruction; K44.9 Diaphragmatic hernia without obstruction or gangrene; K21.9 Gastro-esophageal reflux disease without esophagitis; K31.9 Disease of stomach and duodenum, unspecified; J44.9 Chronic obstructive pulmonary disease, unspecified; I10 Essential (primary) hypertension; Z85.42 Personal history of malignant neoplasm of other parts of uterus; Z86.73 Personal history of transient ischemic attack (TIA), and cerebral infarction without residual deficits; Z90.710 Acquired absence of both cervix and uterus
CPT/HCPCS: 43239; 43249; 88305; C1726

== ENCOUNTER → 2021-01-08 16:05 | Outpatient (CLI) | payer MEDICARE, MEDICAID, SELFPAY ==
[2021-01-08 17:03] LABS: Basophils # 0.1 K/mm3 (0-0.2); Basophils % 0.7 % (0.1-2.0); Eosinophils # 0.4 K/mm3 (0.0-0.4); Eosinophils % 5.6 % (0.1-12.0); Hematocrit 39.8 % (37.0-47.0); Hemoglobin 12.9 g/dL (12.2-16.2); Lymphocytes # 2.2 K/mm3 (0.7-4.5); Lymphocytes % 29.9 % (10-50); Mean Corpuscular HGB Conc 32.3 g/dL (31.8-35.4); Mean Corpuscular Hemoglobin 26.8 pg (27.0-31.2); Mean Platelet Volume 7.7 fl (7.4-10.4); Monocytes # 0.4 K/mm3 (0.1-1.0); Monocytes % 5.2 % (1.7-9.3); Neutrophils # 4.3 K/mm3 (1.8-7.8); Neutrophils % 58.6 % (37.0-80.0); Platelet Count 289 K/mm3 (142-424); Red Cell Distribution Width 14.7 % (11.5-17.5); White Blood Count 7.3 K/mm3 (4.8-10.8)
[2021-01-08 18:11] LABS: Chloride 107 mmol/L (98-107); Potassium 4.5 mmoL/L (3.5-5.1); Sodium 142 mmol/L (136-145)
[2021-01-08 18:14] LABS: Alanine Aminotransferase 21 U/L (12-78); Albumin Level 4.2 g/dl (3.5-5.0); Albumin/Globulin Ratio 1.5 (1.1-1.8); Alkaline Phosphatase 89 U/L (38-126); Anion Gap 13.5 mEq/L (5-15); Aspartate Amino Transferase 27 U/L (14-36); Bilirubin,Total 0.4 mg/dl (0.2-1.3); Blood Urea Nitrogen 16 mg/dl (7-17); Carbon Dioxide 26 mmol/L (22.0-30.0); Estimated Glomerular Filt Rate 85 ml/min (>60); GFR (African American) 103 ML/MIN (>60); Globulin 2.8 g/dL (1.3-3.2)
[2021-01-08 18:15] LABS: Calcium 9.4 mg/dl (8.4-10.2); Glucose 86 mg/dl (74-100)
[2021-01-08 18:31] LABS: Free Thyroxine Index 2.9 ug/dL (5.93-13.13); T4 (Thyroxine) 8.7 ug/dl (5.53-11.0); Triiodothryronine (T3) Uptake 33 % (23.5-40.5)
[2021-01-08 18:45] LABS: Thyroid Stimulating Hormone 1.43 uIU/mL (0.465-4.68)
[2021-01-16 23:45] LABS: Immunoglobulin E, Total 185 IU/mL (6-495)
== END ==
PROVIDERS: Visit Provider Nurse Practitioner Family
DX: R63.5 Abnormal weight gain (principal); L50.9 Urticaria, unspecified
CPT/HCPCS: 36415; 80053; 82785; 84436; 84443; 84479; 85025

== ENCOUNTER → 2021-04-12 11:21 | Outpatient (CLI) | payer MEDICARE, MEDICAID, SELFPAY ==
--- NOTE | 2021-04-12 11:27 | XR_ITS ---
PROCEDURE: XR HIP LT 2-3V W/PELVIS CLINICAL INDICATION: LT HIP PAIN COMPARISON: No exams were available for comparison FINDINGS: No fracture or dislocation is evident. No significant degenerative change. No lytic or blastic change. Unremarkable soft tissues. IMPRESSION: Negative left hip Dictated by: Mike Elder MD 04/12/2021 12:00 Mike Elder MD in [place] 04/12/2021 12:00
--- NOTE | 2021-04-12 11:27 | XR_ITS ---
PROCEDURE: XR LUMBAR SPINE MIN 4V CLINICAL INDICATION: LOW BACK PAIN COMPARISON: No exams were available for comparison FINDINGS: Mild lumbar curvature convex right. Facet arthritic changes are present at L5-S1. There is degenerative disc disease at L4-L5. Small anterior osteophytes are noted involving the lumbar vertebra. No fracture or dislocation. No lytic or blastic change. Other findings:None. IMPRESSION: Degenerative changes as described above Dictated by: Mike Elder MD 04/12/2021 11:59 Mike Elder MD in [facility] 04/12/2021 11:59
== END ==
PROVIDERS: PCP Nurse Practitioner Family; Visit Provider Nurse Practitioner Family
DX: M54.5 Low back pain (principal); M25.552 Pain in left hip; G89.29 Other chronic pain
CPT/HCPCS: 72110; 73502

== ENCOUNTER → 2021-05-25 08:51 | Outpatient (CLI) | payer MEDICARE, MEDICAID, SELFPAY ==
--- NOTE | 2021-05-25 08:59 | XR_ITS ---
PROCEDURE: XR DEXA AXIAL SKELETON CLINICAL HISTORY: ASYMPTOMATIC POSTMENOPAUSAL STATE COMPARISON: No exams were available for comparison FINDINGS: The right hip BMD is 1.021 g per cm squared with a T-score of -1.3. The left hip BMD is 0.946 grams/centimeter squared with a T-score of -1.1. The lumbar spine BMD is 0.995 grams/centimeter squared with a T-score of -0.5. IMPRESSION: Normal values for lumbar spine, Osteopenia values for both hips Based on these results a follow-up exam is recommended in 2 year. Dictated by: Dr. Mayo Monsivais MD 05/25/2021 10:58 Dr. Mayo Monsivais MD in [facility] 05/25/2021 10:58
== END ==
PROVIDERS: PCP Nurse Practitioner Family; Visit Provider Nurse Practitioner Family
DX: Z13.820 Encounter for screening for osteoporosis (principal); Z78.0 Asymptomatic menopausal state
CPT/HCPCS: 77080

== ENCOUNTER → 2021-11-19 15:21 | Outpatient (CLI) | payer MEDICARE, MEDICAID, SELFPAY ==
--- NOTE | 2021-11-19 15:33 | XR_ITS ---
FINAL REPORT CLINICAL HISTORY: FLANK PAIN lt side... HISTORY OF NEPHROLITHIASIS FINDINGS: ABDOMEN SINGLE VIEW A single view of the abdomen was obtained. There is a nonobstructive bowel gas pattern. There are no abnormally dilated loops of small bowel. No definite renal stone is identified. There are postoperative changes in the right abdomen. There is mild rightward curvature of the spine. IMPRESSION: No definite renal stone identified. Reviewed, Interpreted and Dictated by Evens Beth III, MD Transcribed by Jing Berry Authenticated by Evens Beth III, MD on 11/19/2021 04:47:40 PM [facility]
[2021-11-19 16:54] LABS: Basophils # 0.1 K/mm3 (0-0.2); Eosinophils # 0.3 K/mm3 (0.0-0.4); Eosinophils % 3.7 % (0.1-12.0); Hematocrit 41.3 % (37.0-47.0); Hemoglobin 13.5 g/dL (12.2-16.2); Lymphocytes # 2.4 K/mm3 (0.7-4.5); Lymphocytes % 33.6 % (10-50); Mean Corpuscular HGB Conc 32.7 g/dL (31.8-35.4); Mean Corpuscular Hemoglobin 27.5 pg (27.0-31.2); Mean Corpuscular Volume 84.1 fl (81-99); Mean Platelet Volume 7.3 fl (7.4-10.4); Monocytes # 0.3 K/mm3 (0.1-1.0); Monocytes % 4.6 % (1.7-9.3); Neutrophils # 4.1 K/mm3 (1.8-7.8); Platelet Count 294 K/mm3 (142-424); Red Blood Count 4.91 M/mm3 (4.20-5.40); Red Cell Distribution Width 14.5 % (11.5-17.5); White Blood Count 7.2 K/mm3 (4.8-10.8)
[2021-11-19 17:24] LABS: Alanine Aminotransferase 18 U/L (12-78); Albumin Level 4.3 g/dl (3.5-5.0); Albumin/Globulin Ratio 1.7 (1.1-1.8); Alkaline Phosphatase 91 U/L (38-126); Anion Gap 11.2 mEq/L (5-15); Aspartate Amino Transferase 24 U/L (14-36); Bilirubin,Total 0.5 mg/dl (0.2-1.3); Blood Urea Nitrogen 10 mg/dl (7-17); Calcium 9.6 mg/dl (8.4-10.2); Carbon Dioxide 27 mmol/L (22.0-30.0); Chloride 106 mmol/L (98-107); Estimated Glomerular Filt Rate 85 ml/min (>60); GFR (African American) 102 ML/MIN (>60); Globulin 2.5 g/dL (1.3-3.2); Glucose 82 mg/dl (74-100); Potassium 4.2 mmoL/L (3.5-5.1); Sodium 140 mmol/L (136-145); Total Protein,Serum 6.8 g/dl (6.3-8.2)
== END ==
PROVIDERS: PCP Internal Medicine Adolescent Medicine; Visit Provider Nurse Practitioner Family
DX: R10.9 Unspecified abdominal pain (principal); Z87.442 Personal history of urinary calculi
CPT/HCPCS: 36415; 74018; 80053; 85025

== ENCOUNTER → 2022-01-11 07:03 | Outpatient (CLI) | payer MEDICARE, MEDICAID, SELFPAY ==
--- NOTE | 2022-01-11 | CA_ITS ---
APPROVED REPORT Exam: Pharmacologic Technologist: Cassandra Boyle, Ht: 5 ft 3 in Wt: 193 lbs BSA: 1.90 m2 HR: 84 bpm BP: 215/130 mmHg Rhythm: NSR 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: HTN, Smoking Medications: Aspirin,,,,, Valsartan,,,,, BisOPROLOL Fumarate,,,,, Pantroprazole,,,,, Cardiac Risk Factors: HTN, FHX of CAD, Smoking Stress Test Details Test: LEXISCAN HR Resting HR: 82 bpm Max Heart Rate (APMHR): 157.630655 bpm Max HR Achieved: 124 bpm Target HR (85% APMHR): 133.617478 bpm % of APMHR: 78.98 Recovery HR: 91 bpm BP Resting BP: 215/130 mmHg Max BP: 221/120 mmHg Recovery BP: 213.0/102.0 mmHg ECG Resting ECG: NSR Clinical Exercise duration: 04:02 min Highest Stage Achieved: Exercise capacity: 1.0 METs Stress ECG Conclusion During lexiscan pt experinced SOA, no CP noted. No arrhythmias noted. <1.5mm Pt did not take BP meds this AM. Advised to take meds, recheck BP this afternoon. If still high or symptomatic- go to the ER. Electronically signed by : Phil Núñez MD 01/11/2022 12:08:09
--- NOTE | 2022-01-11 07:11 | NM_ITS ---
APPROVED REPORT Exam: Nuclear Stress Test Indication: Chest pain, SOB, HTN, Family history Patient Location: Outpatient Stress Tech: Cassandra Boyle NM Tech:Mary Johnson, ARRT, RT (R)(N) Ht: 5 ft 3 in Wt: 192 lbs Bra Size: 38DD HR: 82 bpm BP: 215/130 mmHg BSA: 1.90 m2 TID: 1.05 BMI: 34.0 History: Chest pain, SOB, HTN, Family history Procedure: Patient received a 0.4 mg of intravenous Lexiscan, resting heart rate 82 bpm, resting blood pressure 215/130 mmHg, with Lexiscan maximum heart rate achived was 124 bpm which is Less than 85 % of the maximum predicted heart rate and blood pressure was 221/120 mmHg. With Lexiscan, patient denied any complaint of chest pain. Electrocardiogram Resting electrocardiogram shows sinus rhythm with Lexiscan there is less than 1.[address] segment depression noted from the baseline EKG. The EKG portion of the Lexiscan is nondiagnostic. Cardiac Stress and Resting SPECT Images: Cardiac Stress and Resting SPECT images were obtained using technetium 99m Myoview 30.7 mCi stress and 10.52 mCi at rest. Gated SPECT analysis of segmental wall motion and calculation of the ejection fraction also done, prone images were also obtained. Cardiac stress and resting SPECT images show uniform myocardial activity without segmental perfusion abnormality, computer derived ejection fraction is 64% with no regional wall motion abnormality, right ventricle is normal size and contractility. Conclusion: 1. The EKG portion of the Lexiscan is nondiagnostic. 2. No scintigraphic evidence of reversible ischemia seen, compared to ejection fraction 64% with no regional wall motion abnormality, right ventricle is normal size and contractility. 3. Normal Lexiscan Myoview study. Electronically signed by : Phil Núñez MD 01/11/2022 12:10:14
--- NOTE | 2022-01-11 08:56 | HMH.ITSHM ---
Current Home Medications as stated by this patient Thalia Bourgeois or training representative. []VALSARTAN PANTOPRAZOLE ASA LATANOPROST
== END ==
PROVIDERS: PCP Nurse Practitioner Family; Visit Provider Nurse Practitioner Family
DX: I10 Essential (primary) hypertension (principal); R06.00 Dyspnea, unspecified; R07.89 Other chest pain; R42 Dizziness and giddiness; R60.9 Edema, unspecified
CPT/HCPCS: 78452; 93017; A9502; J2785

== ENCOUNTER → 2022-01-15 07:57 | Outpatient (CLI) | payer MEDICARE, MEDICAID, SELFPAY ==
--- NOTE | 2022-01-15 07:57 | CA_ITS ---
FINAL REPORT TECHNIQUE: Grayscale, color Doppler and duplex Doppler ultrasound of the kidneys, aorta and renal arteries was performed. Multiple velocities were measured. CLINICAL HISTORY: HTN,EX SMOKER,HX KIDNEY STONES FINDINGS: Aorta velocity: 98.2 cm/sec Right kidney: 10.6 cm. No evidence of hydronephrosis or mass. Right intrarenal RI: 0.70 Right renal artery velocity: 188 cm/sec. Right RAR (Renal artery-Aortic Ratio): 1.9 Left Kidney: 10.9 cm. No evidence of hydronephrosis or mass. Left intrarenal RI: 0.61 Left renal artery velocity: 160 cm/sec. Left RAR (Renal Artery-Aortic Ratio): 1.6 IMPRESSION: No evidence of significant renal artery stenosis on the left. Elevated velocities of the right renal artery but with a normal renal artery-aortic ratio. Stenosis is not excluded. Could be further evaluated with CT angiogram or catheter angiogram. Reviewed, Interpreted and Dictated by Evens Beth III, MD Transcribed by Jing Berry Authenticated and . [facility]
== END ==
PROVIDERS: PCP Nurse Practitioner Family; Visit Provider Nurse Practitioner Family
DX: I10 Essential (primary) hypertension (principal); R06.00 Dyspnea, unspecified; R07.89 Other chest pain; R42 Dizziness and giddiness; R60.9 Edema, unspecified
CPT/HCPCS: 93306; 93976

== ENCOUNTER → 2022-01-21 10:20 | Outpatient (CLI) | payer MEDICARE, MEDICAID, SELFPAY | PROVIDERS: PCP Internal Medicine Adolescent Medicine; Visit Provider Internal Medicine | DX: Z01.812 Encounter for preprocedural laboratory examination (principal); Z20.822 Contact with and (suspected) exposure to COVID-19; Z13.810 Encounter for screening for upper gastrointestinal disorder | CPT/HCPCS: C9803; U0003; U0005 ==

== ENCOUNTER 2022-01-23 09:27 | Day surgery (SDC) | payer MEDICARE, MEDICAID, SELFPAY ==
[2022-01-21 13:28] VITALS: BMI 34.2
[2022-01-23 09:42] VITALS: BP 157/98; PULSE 92; RESP 18; TEMP 36.4; O2SAT 99
--- NOTE | 2022-01-23 09:58 | P.PN_ITS ---
[facility] Anesthesia Checklist - Patient Identification Patient Identification: Arm Band, Verbal (Name & ) - Structural Data Admitted From: Home Planned Operative Procedure/s: EGD Consent for Planned Operative Procedure(s) Verified: Yes Verified Documents: Surgical Consent - NPO Status Verified Time NPO: 00:00 - Additional verifications Anesthesia Reactions: No - Airway Assessment C-Spine Mobility Assessed: Yes TMJ Mobility Assessed: Yes - Neurological Assessment Level of Consciousness: Awake, Alert, Appropriate - Anesthesia Plan Anesthesia Risk discussed: Yes ASA Class: II Anesthesia Type: MAC [facility] History I have reviewed the patient's past medical history: Yes 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: Reports:: Chronic Obstructive Pulmonary Disease (COPD), Gastroesophageal Reflux Disease(GERD), Hypertension, Lung Disease, Transient Ischemic Attacks (TIA) Denies:: Cancer, Diabetes Mellitus Type 1, Diabetes Mellitus Type 2, Internal Pacemaker, MRSA, Seizures *Have you ever received a pneumonia vaccine?: No *Have you received a flu vaccine this season?: No Other 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: Reports: Anemia Anesthesia experience/problems:: none Other Surgeries: Yes: Cholecystectomy, Hysterectomy-Total, Tubal Ligation. No: Pacemaker Amputation: No - *Social History Last grade of school completed: High school graduate Smoking Status: Former smoker Tobacco Type: cigarettes Alcohol Intake: never Substance Use Type: denies use *Occupational Status:: disabled Housing: house *Travel in the last 8 weeks: None Family Hx:: Cancer, Coronary Artery Disease, Diabetes
[2022-01-23 10:05] VITALS: O2SAT 97
[2022-01-23 10:20] VITALS: BP 135/82; PULSE 78; RESP 16; TEMP 36.2; O2SAT 96
--- NOTE | 2022-01-23 10:20 | HMH.SCOPE ---
- Procedure: Date: 01/23/22 Patient Date of :: 1960 Procedure Performed:: EGD Indications:: The patient is a 61 year old who presents for EGD for dysphagia symptom. She reports history of EGD in past for dysphagia requiring esophageal dilatation. Performing Provider:: Kamlesh Rizvi MD Referring Provider:: Js Mraie MD Sedation:: See RN records Procedure:: The gastroscope was gently passed through the incisoral orifice into the oral cavity and under direct visualization the esophagus was intubated. The endoscope was passed down the esophagus, through the stomach, and into the duodenum. Color, texture, mucosa, and anatomy of the esophagus, stomach, and duodenum were carefully examined with the scope. Findings:: Oropharynx: normal Esophagus: normal EG Junction: Non obstructing Schatzki ring. Biopsy forceps used to break apart ring. Dilatation performed sequentially with 18-20 mm tts balloon Cardia: Small hiatal hernia Fundus: normal Body: Gastritis. Biopsies obtained. Bilious fluid Antrum: Gastritis. Hematin stained mucosa. Biopsies obtained Duodenal bulb: normal Duodenum (second and third portion): normal Recommendations:: Await pathology results Return for EGD with esophageal dilatation as needed Complications:: None Estimated blood obtained (mL): 0
[2022-01-23 10:30] VITALS: BP 133/87; PULSE 79; RESP 18; TEMP 36.2; O2SAT 95
[2022-01-23 10:40] VITALS: BP 131/89; PULSE 79; RESP 18; TEMP 36.2; O2SAT 94
[2022-01-23 10:55] VITALS: BP 121/86; PULSE 78; RESP 18; TEMP 36.2; O2SAT 95
== END 2022-01-23 10:55 | disposition home or self-care (01) ==
LOC: OUTP 09:29
PROVIDERS: PCP Nurse Practitioner Family; Visit Provider Internal Medicine
PROC: 0DJ08ZZ Inspection of Upper Intestinal Tract, Via Natural or Artificial Opening Endoscopic (ICD-10-PCS; CPT 43235; principal; 2022-01-23 10:30)
DX: R13.10 Dysphagia, unspecified (principal); J44.9 Chronic obstructive pulmonary disease, unspecified; K21.9 Gastro-esophageal reflux disease without esophagitis
CPT/HCPCS: 43239; 43249; C1726

== ENCOUNTER 2022-01-24 09:30 | Day surgery (SDC) | payer MEDICARE, MEDICAID, SELFPAY ==
[2022-01-24] VITALS (13 sets, daily range): BP systolic 106–167; BP diastolic 69–109; PULSE 67–95; RESP 18–20; TEMP 36.6; O2SAT 92–99; BMI 34.2
--- NOTE | 2022-01-24 07:37 | IR_ITS ---
APPROVED REPORT Patient Location: Outpatient PROCEDURES Bilateral selective renal angiogram INDICATION Abnormal renal duplex, Malignant hypertension, Suspect renovascular hypertension Informed consent was obtained prior to the procedure. COMPLICATIONS NONE Estimated Blood Loss: LESS THAN 10 ML TECHNIQUE One percent lidocaine used to anesthetize the right anterior aspect of the wrist. The right radial artery was accessed via the Seldinger technique. A 6 Serbian sheath was placed in the right radial artery. 2.5 mg of verapamil, 800 mcg of nitroglycerin, 1mg Lidocaine and 5000 U Heparin were given through the arterial sheath. The papa catheter was also used to perform bilateral selective renal angiography. At the end of the procedure the apparatus was removed the sheath was removed and hemostasis was achieved using TR banding patient was transferred to the postop putting in stable condition ANGIOGRAPHIC RESULTS Right renal artery singular normal Left renal artery singular normal IMPRESSION Normal bilateral renal arteries PLAN 1. Treatment of hypertension Electronically signed by : Yunior Abdi MD 01/24/2022 11:03:03
[2022-01-24 09:59] LABS: Basophils # 0.1 K/mm3 (0-0.2); Basophils % 1.8 % (0.1-2.0); Eosinophils # 0.4 K/mm3 (0.0-0.4); Eosinophils % 6.5 % (0.1-12.0); Hematocrit 47.5 % (37.0-47.0); Hemoglobin 14.4 g/dL (12.2-16.2); Lymphocytes # 1.6 K/mm3 (0.7-4.5); Lymphocytes % 27.3 % (10-50); Mean Corpuscular HGB Conc 30.4 g/dL (31.8-35.4); Mean Corpuscular Hemoglobin 26.7 pg (27.0-31.2); Mean Corpuscular Volume 87.9 fl (81-99); Mean Platelet Volume 7.6 fl (7.4-10.4); Monocytes # 0.2 K/mm3 (0.1-1.0); Monocytes % 3.7 % (1.7-9.3); Neutrophils # 3.5 K/mm3 (1.8-7.8); Neutrophils % 60.7 % (37.0-80.0); Platelet Count 306 K/mm3 (142-424); Red Cell Distribution Width 14.6 % (11.5-17.5); White Blood Count 5.8 K/mm3 (4.8-10.8)
[2022-01-24 10:04] LABS: Chloride 107 mmol/L (98-107); Sodium 140 mmol/L (136-145)
[2022-01-24 10:05] LABS: Potassium 4.3 mmoL/L (3.5-5.1)
[2022-01-24 10:07] LABS: Blood Urea Nitrogen 14 mg/dl (7-17); Creatinine Clearance Estimated 80 mL/min (50-200); Estimated Glomerular Filt Rate 72 ml/min (>60); GFR (African American) 88 ML/MIN (>60)
[2022-01-24 10:08] LABS: Anion Gap 10.3 mEq/L (5-15); Carbon Dioxide 27 mmol/L (22.0-30.0)
[2022-01-24 10:59] LABS: Calcium 9.3 mg/dl (8.4-10.2); Glucose 107 mg/dl (74-100)
== END 2022-01-24 13:56 | disposition home or self-care (01) ==
LOC: CATHLAB 09:31
PROVIDERS: PCP Internal Medicine Adolescent Medicine; Visit Provider Internal Medicine
DX: I10 Essential (primary) hypertension (principal); I70.1 Atherosclerosis of renal artery; Z88.8 Allergy status to other drugs, medicaments and biological substances; Z79.899 Other long term (current) drug therapy; I15.0 Renovascular hypertension; K21.9 Gastro-esophageal reflux disease without esophagitis; R07.89 Other chest pain
CPT/HCPCS: 36252; 80048; 85025; 88305; 99152; C1725; C1769; J1644; Q9967

== ENCOUNTER → 2022-06-12 13:33 | Outpatient (CLI) | payer MEDICARE, MEDICAID, SELFPAY ==
[2022-06-12 14:10] LABS: Basophils # 0.1 K/mm3 (0-0.2); Basophils % 1.3 % (0.1-2.0); Eosinophils # 0.5 K/mm3 (0.0-0.4); Eosinophils % 6.5 % (0.1-12.0); Hematocrit 43.2 % (37.0-47.0); Hemoglobin 13.1 g/dL (12.2-16.2); Lymphocytes # 2.2 K/mm3 (0.7-4.5); Lymphocytes % 30.4 % (10-50); Mean Corpuscular HGB Conc 30.3 g/dL (31.8-35.4); Mean Corpuscular Hemoglobin 26.1 pg (27.0-31.2); Mean Corpuscular Volume 85.9 fl (81-99); Mean Platelet Volume 7.7 fl (7.4-10.4); Monocytes # 0.3 K/mm3 (0.1-1.0); Monocytes % 4.1 % (1.7-9.3); Neutrophils # 4.2 K/mm3 (1.8-7.8); Neutrophils % 57.7 % (37.0-80.0); Platelet Count 334 K/mm3 (142-424); Red Blood Count 5.03 M/mm3 (4.20-5.40); Red Cell Distribution Width 15.2 % (11.5-17.5); White Blood Count 7.3 K/mm3 (4.8-10.8)
[2022-06-12 14:57] LABS: Hemoglobin A1C 5.6 % (4.0-6.0)
[2022-06-12 16:10] LABS: Alanine Aminotransferase 17 U/L (12-78); Albumin Level 4.4 g/dl (3.5-5.0); Albumin/Globulin Ratio 1.7 (1.1-1.8); Alkaline Phosphatase 122 U/L (38-126); Anion Gap 12.1 mEq/L (5-15); Aspartate Amino Transferase 21 U/L (14-36); Bilirubin,Total 0.4 mg/dl (0.2-1.3); Blood Urea Nitrogen 13 mg/dl (7-17); Calcium 9.8 mg/dl (8.4-10.2); Carbon Dioxide 26 mmol/L (22.0-30.0); Chloride 107 mmol/L (98-107); Chol/HDL Ratio 3.1 (1-3.5); Cholesterol 187 mg/dl (140-200); Estimated Glomerular Filt Rate 72 ml/min (>60); GFR (African American) 88 ML/MIN (>60); Globulin 2.6 g/dL (1.3-3.2); Glucose 83 mg/dl (74-100); HDL Cholesterol 60 mg/dl (40-60); Potassium 4.1 mmoL/L (3.5-5.1); Sodium 141 mmol/L (136-145); Triglycerides 90 mg/dl (30-150); VLDL Cholesterol 18 mg/dL (0-40)
[2022-06-12 16:21] LABS: Direct LDL Cholesterol 95.51 mg/dL (100-129)
[2022-06-12 16:24] LABS: 25-OH Vitamin D, Total 31.5 ng/mL (30-100)
[2022-06-12 18:22] LABS: Vitamin B12 454 pg/mL (239-931)
== END ==
PROVIDERS: PCP Internal Medicine Adolescent Medicine; Visit Provider Nurse Practitioner Family
DX: Z00.00 Encounter for general adult medical examination without abnormal findings (principal); R73.03 Prediabetes; E53.8 Deficiency of other specified B group vitamins; E55.9 Vitamin D deficiency, unspecified; Z79.899 Other long term (current) drug therapy
CPT/HCPCS: 36415; 80053; 80061; 82306; 82607; 83036; 85025

== ENCOUNTER → 2022-07-10 14:44 | Outpatient (CLI) | payer MEDICARE, MEDICAID, SELFPAY ==
--- NOTE | 2022-07-10 14:46 | CT_ITS ---
FINAL REPORT CLINICAL HISTORY: H/O NICOTINE DEPENDENCE, former smoker. Patient quit smoking 17 years ago. She smoked a pack a day for 30 years prior. Patient states she has pulmonary nodules seen on an older ct scan. COMPARISON: March 18, 2018 FINDINGS: Low-Dose Chest CT Axial images were obtained from the lung apex to the mid abdomen by computed tomography. Low-dose protocol was utilized. CTDI vol (mGy): 2.90 DLP (mGy-cm): 99.25 There is no axillary adenopathy. There is no hilar adenopathy. There are multiple borderline size mediastinal lymph nodes which are stable. The heart is proper size. There is no pericardial or pleural effusion. Lung window images demonstrate several calcified granulomas. There are mild changes of emphysema with mild pulmonary scarring. There is a right middle lobe nodule that measures 9 mm and was 9 mm. There are mild but worsening bibasilar opacities, right greater than left, favor scarring or atelectasis. Limited images of the upper abdomen demonstrate postoperative changes from cholecystectomy.. IMPRESSION: Right middle lobe nodule stable since 2018 consistent with a benign nodule. Lung RADS category 1. Recommend 12 month follow-up low-dose chest CT. Reviewed, Interpreted and Dictated by Evens Beth III, MD Transcribed by Jing Berry Authenticated and [facility]
--- NOTE | 2022-07-10 14:48 | MM_ITS ---
PROCEDURE INFORMATION: Exam: MG Bilateral Screening 3D Mammography Exam date and time: 07/10/2022 2:55 PM Age: 61 years old Clinical indication: Screening examination TECHNIQUE: Imaging protocol: Bilateral Screening tomosynthesis and 2D mammography including computer-aided detection (CAD) when performed. COMPARISON: 1. MG DMSB DIG MAMM-SCREEN JOEY W/CAD 02/05/2017 4:27 PM 2. MG DMSB DIG MAMM-SCREEN JOEY 11/29/2013 11:18 AM FINDINGS: MAMMOGRAPHY: Breast composition: The breasts are heterogeneously dense, which may obscure small masses. Mass: None. Architectural distortion: None. Calcifications: No suspicious calcifications. Asymmetric density: None. Skin thickening: None. Axillary adenopathy: None. IMPRESSION: No mammographic evidence of malignancy. Annual screening is recommended unless otherwise clinically indicated. ASSESSMENT: BI-RADS Category 1: Negative
== END ==
PROVIDERS: PCP Internal Medicine Adolescent Medicine; Visit Provider Nurse Practitioner Family
DX: Z87.891 Personal history of nicotine dependence (principal); Z12.2 Encounter for screening for malignant neoplasm of respiratory organs; R91.1 Solitary pulmonary nodule; Z12.31 Encounter for screening mammogram for malignant neoplasm of breast
CPT/HCPCS: 71271; 77063; 77067

== ENCOUNTER 2023-05-23 11:00 | Outpatient (RCR) | payer MEDICARE, MEDICAID, SELFPAY | END 2023-05-23 12:00 | disposition home or self-care (01) | LOC: OT 11:00 | PROVIDERS: PCP Internal Medicine Adolescent Medicine; Visit Provider Nurse Practitioner Family | DX: M75.101 Unspecified rotator cuff tear or rupture of right shoulder, not specified as traumatic (principal); M25.511 Pain in right shoulder | CPT/HCPCS: 97010; 97014; 97110; 97140; 97165; 97530; G0283 ==

== ENCOUNTER → 2023-05-26 10:55 | Outpatient (CLI) | payer MEDICARE, MEDICAID, SELFPAY | LOC: RT 10:56 | PROVIDERS: PCP Internal Medicine Adolescent Medicine; Visit Provider Physician Assistant | DX: R94.31 Abnormal electrocardiogram [ECG] [EKG] (principal); R00.2 Palpitations; I10 Essential (primary) hypertension; Z87.891 Personal history of nicotine dependence | CPT/HCPCS: 93225 ==

== ENCOUNTER → 2023-05-28 11:13 | Outpatient (CLI) | payer MEDICARE, MEDICAID, SELFPAY | LOC: RT 11:15 | PROVIDERS: PCP Internal Medicine Adolescent Medicine; Visit Provider Physician Assistant | DX: I10 Essential (primary) hypertension (principal); R00.2 Palpitations; R94.31 Abnormal electrocardiogram [ECG] [EKG]; Z87.891 Personal history of nicotine dependence | CPT/HCPCS: 93270 ==

== ENCOUNTER → 2023-07-04 08:18 | Outpatient (CLI) | payer MEDICARE, MEDICAID, SELFPAY ==
--- NOTE | 2023-07-04 08:49 | CT_ITS ---
FINAL REPORT CLINICAL HISTORY: H/O TOABACCO USE former smoker, quit 17 years ago. smoked 1 ppd x 30 years COMPARISON: 07/10/2022 FINDINGS: CT CHEST LOW DOSE SCREENING HISTORY: Screening exam for lung cancer. 62-year-old female, former smoker, quit 17 years ago, 30 pack year smoking history DOSE: CTDIvol: 2.9 mGy, DLP: 96.38 mGy*cm COMPARISON: 07/10/2022. TECHNIQUE: Axial CT without IV contrast administration using low dose protocol FINDINGS: No acute lung disease is present . The right middle lobe nodule seen on multiple prior CT examinations measures 10 mm on today's examination, essentially stable since the prior examinations. A calcified granuloma is present in the lingula. No pleural or pericardial effusion is seen . No adenopathy or mass lesion is present . IMPRESSION: Right middle lobe nodule, essentially stable since prior examination. No new nodule or mass is identified. LUNG RADS CATEGORY 1 RECOMMENDATION: 12 month LDCT follow up Reviewed, Interpreted and Dictated by Jeff Guzman MD Transcribed by Liv Leon Authenticated and [facility]
== END ==
PROVIDERS: PCP Internal Medicine Adolescent Medicine; Visit Provider Nurse Practitioner Family
DX: Z87.891 Personal history of nicotine dependence (principal); J44.9 Chronic obstructive pulmonary disease, unspecified; R91.1 Solitary pulmonary nodule
CPT/HCPCS: 71271

== ENCOUNTER → 2023-07-09 11:22 | Outpatient (CLI) | payer MEDICARE, MEDICAID, SELFPAY ==
[2023-07-09 11:38] LABS: Basophils # 0.1 K/mm3 (0-0.2); Eosinophils # 0.2 K/mm3 (0.0-0.4); Eosinophils % 2.2 % (0.1-12.0); Hematocrit 44.3 % (37.0-47.0); Hemoglobin 14.3 g/dL (12.2-16.2); Lymphocytes # 3.2 K/mm3 (0.7-4.5); Lymphocytes % 39.9 % (10-50); Mean Corpuscular HGB Conc 32.2 g/dL (31.8-35.4); Mean Corpuscular Hemoglobin 27.3 pg (27.0-31.2); Mean Corpuscular Volume 84.7 fl (81-99); Mean Platelet Volume 7.6 fl (7.4-10.4); Monocytes # 0.3 K/mm3 (0.1-1.0); Monocytes % 4.2 % (1.7-9.3); Neutrophils # 4.2 K/mm3 (1.8-7.8); Neutrophils % 52.7 % (37.0-80.0); Platelet Count 303 K/mm3 (142-424); Red Blood Count 5.22 M/mm3 (4.20-5.40); Red Cell Distribution Width 14.7 % (11.5-17.5)
[2023-07-09 12:07] LABS: Alanine Aminotransferase 21 U/L (12-78); Albumin Level 4.5 g/dl (3.5-5.0); Alkaline Phosphatase 91 U/L (38-126); Anion Gap 9.7 mEq/L (5-15); Aspartate Amino Transferase 25 U/L (14-36); Bilirubin,Direct 0.1 mg/dl (0.0-0.4); Bilirubin,Indirect 0.3 mg/dL (0.0-0.9); Bilirubin,Total 0.4 mg/dl (0.2-1.3); Bilirubin,Unconjugated 0.3 mg/dL (0.0-1.1); Blood Urea Nitrogen 13 mg/dl (7-17); Calcium 9.3 mg/dl (8.4-10.2); Carbon Dioxide 27 mmol/L (22.0-30.0); Chloride 105 mmol/L (98-107); Chol/HDL Ratio 3.7 (1-3.5); Cholesterol 209 mg/dl (140-200); Estimated Glomerular Filt Rate 72 ml/min (>60); GFR (African American) 87 ML/MIN (>60); Glucose 102 mg/dl (74-100); HDL Cholesterol 56 mg/dl (40-60); Potassium 4.7 mmoL/L (3.5-5.1); Sodium 137 mmol/L (136-145); Total Protein,Serum 7.4 g/dl (6.3-8.2); Triglycerides 135 mg/dl (30-150); VLDL Cholesterol 27 mg/dL (0-40)
[2023-07-09 12:19] LABS: Direct LDL Cholesterol 113.41 mg/dL (100-129)
[2023-07-09 12:23] LABS: Free T4 (Free Thyroxine) 1.05 ng/dl (0.78-2.19)
[2023-07-09 12:38] LABS: Thyroid Stimulating Hormone 1.32 uIU/mL (0.465-4.68)
== END ==
LOC: LAB 11:23
PROVIDERS: PCP Internal Medicine Adolescent Medicine; Visit Provider Internal Medicine
DX: R00.2 Palpitations (principal); R94.31 Abnormal electrocardiogram [ECG] [EKG]; I70.1 Atherosclerosis of renal artery; I10 Essential (primary) hypertension; K21.9 Gastro-esophageal reflux disease without esophagitis; R06.00 Dyspnea, unspecified; R42 Dizziness and giddiness; U09.9 Post COVID-19 condition, unspecified; Z87.891 Personal history of nicotine dependence
CPT/HCPCS: 36415; 80048; 80061; 80076; 83735; 84439; 84443; 85025

== ENCOUNTER 2023-08-01 11:01 | Outpatient (CLI) | payer MEDICARE, MEDICAID, SELFPAY ==
[2023-07-30 11:31] VITALS: BMI 34.4
--- NOTE | 2023-08-01 11:01 | CA_ITS ---
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 Cornelius, RVS Ht: 5 ft 3 in Wt: 203lbs BSA: 1.95 BP: 157/87 mmHg Indications: Ex smoker, hx-covid, Palpitations, HTN, Renal artery stenosis, Dyspnes, Dizziness Echo Enhancing Agent Comments: Poor Acoustics throughout exam unaided by body habitus 2D Dimensions Aortic Root 2.78 cm LA Volume 53.50 mL Left Atrium 3.29 cm LA Volume Index 27.662144 mL/m2 (M/F) 16-34 RVID Base (AP4) 3.46 cm (M/F) 2.5-4.1 LVOT 1.83 cm (M/F) 1.5-2.5 M-Mode Dimensions RVDd 2.80 cm (0.9-2.6) LVDd 4.37 cm (3.5-5.7) Ao Diam 3.24 cm (2.0-3.7) LVDs 2.72 cm (3.5-5.7) IVSd 1.02 cm (0.6-1.1) PWd 1.02 cm (0.6-1.1) EF (Teich) 68.10% EPSs 0.38 cm FS 37.80% EDV (Teich) 86.30 mL TAPSE 2.85 (<1.7) ESV (Teich) 27.50 mL LV Diastology E Decel Time 219 (160-240 msec) E/A Ratio 1.09 MED E' 10.8 (>= 7 cm/sec) MED A' 11.50 cm/s E'/MED E' Ratio 6.28 (<= 14) LAT E' 13.0 (>= 10 cm/sec) LAT A' 17.20 cm/s E/LAT E' Ratio 5.22 (<= 14) Aortic Valve LVOT Max 87.0 (70-110 cm/s) KASIA Index 1.12 cm2/m2 LVOT VTI 19.68 cm AoV Peak Kvng. 107.0 (50-130 cm/s) AO Mean GR. 2.30 (<5 mmHg) AO VTI 23.8 (18-25 cm) KASIA (VTI) 2.18 (2.5-4.5 cm2) Mitral Valve MV E Max Kvng. 68.0 (40-130 cm/s) MV A Velocity 62.0 (40-130 cm/s) E/A Ratio 1.09 MV Decel. Time 219 (160-240 ms) Tricuspid Valve TR P. Velocity 186.00 cm/s RAP Estimate 10.00 mmHg RVSP 23.90 mmHg Left Ventricle The left ventricle is normal size. The left ventricular systolic function is normal. The left ventricular ejection fraction is within the normal range. There is normal left ventricular wall thickness. There is normal LV segmental wall motion. The left ventricular diastolic function is normal. LVEF is 60%. Right Ventricle The right ventricle is mildly dilated. The right ventricular systolic function is normal. Atria The left atrium size is normal. The right atrium size is normal. The interatrial septum is not well-visualized. Aortic Valve The aortic valve opens well. There is no aortic valvular stenosis. No aortic regurgitation is present. Mitral Valve The mitral valve is normal in structure. No evidence of mitral valve stenosis. There is no mitral valve regurgitation noted. Tricuspid Valve The tricuspid valve leaflets are thin and pliable. Mild tricuspid regurgitation. RVSP is normal. Pulmonic Valve The pulmonic valve is not well-visualized. Great Vessels The aortic root is normal in size. The ascending aorta is normal in size. The IVC is not well-visualized. Pericardium There is no pericardial effusion. Other Information Study Quality: Technically Difficult Conclusion Technically difficult study due to poor acoustic windows. Normal biventricular systolic function. Mild RV dilation. Mild TR. Electronically signed by : Marisol Lee MD 08/04/2023 00:56:15
[2023-08-01 11:33] VITALS: BP 180/93; PULSE 89; RESP 18; TEMP 36.6; O2SAT 97
[2023-08-01] MEDS: IVABRADINE HCL 7.5MG TABLET *IVABRADINE+METOPROLOL REGIMINE 15 MG PO (11:42)
--- NOTE | 2023-08-01 11:43 | PC.NURSE ---
Upon preop assessment discovered that despite experiencing feeling flushed, wheezing and shortness of breath after taking she has continued to take metoprolol at night. Spoke with Shannan Webb in cardiology clinic and determined that pt should discontinue taking and give only Ivabradine for CTA procedure. It was also decided that we would wait up to 1 hour for medication to take effect then complete CTA.
[2023-08-01 12:47] VITALS: BP 188/111; PULSE 92; RESP 18; O2SAT 97
[2023-08-01] MEDS: NITROGLYCERIN 0.4MG SL TABLET 0.800000000000000044 MG SL (12:47)
--- NOTE | 2023-08-01 13:01 | PC.NURSE ---
[id number] took patient to CT room in ER. Pt hypertensive and HR still in the 80-90's range. This RN consulted Shannan Webb APRN in cardiology. Due to patients HTN and HR, it was decided to cancel the CCTA. Shannan wants pt to come to cardiology office on Friday at 1300 to discuss HTN meds and CCTA. Information relayed to pt, pt verbalized understanding. 1300- Echo staff notified that pt is back in post op. They will be arriving shortly to transfer patient to echo lab
== END 2023-08-01 23:59 | disposition home or self-care (01) ==
PROVIDERS: PCP Internal Medicine Adolescent Medicine; Visit Provider Internal Medicine
DX: R00.2 Palpitations (principal); R06.00 Dyspnea, unspecified; R94.31 Abnormal electrocardiogram [ECG] [EKG]
CPT/HCPCS: 93306

== ENCOUNTER 2023-08-18 11:59 | Outpatient (CLI) | payer MEDICARE, MEDICAID, SELFPAY ==
--- NOTE | 2023-08-18 11:59 | NM_ITS ---
APPROVED REPORT Exam: Nuclear Stress Test Indication: OBESITY, HTN, FM HX, C.P., SOB Patient Location: obesity Stress Tech: Josi Chavez NM Tech:Mary Johnson, ARRT, RT (R)(N) Ht: 5 ft 3 in Wt: 194 lbs Bra Size: 38DD HR: 95 bpm BP: 184/100 mmHg BSA: 1.91 m2 Rhythm: NSR TID: 1.12 BMI: 34.3 History: HTN, FM HX, Chest pain, SOB Procedure: Patient received 0.4 mg of intravenous Lexiscan, resting heart rate 95 bpm, resting blood pressure 184/100 mmHg, with Lexiscan maximum heart rate achieved was 118 bpm which is % of the maximum predicted heart rate and blood pressure was 196/108 mmHg. With Lexiscan, patient denied any complaint of chest pain. Cardiac Stress and Resting SPECT Images: Cardiac Stress and Resting SPECT images were obtained using technetium 99m Myoview 31.0 mCi stress and 9.93 mCi at rest. Resting and stress imaging in supine and prone positions demonstrate no evidence of focal fixed or reversible perfusion defects. Gated imaging demonstrates increase in transient ischemic dilatation ratio (TID 1.21), suggestive of possible multivessel disease or balanced ischemia. Gated imaging demonstrates normal global and regional LV systolic function. LVEF is calculated at 72%. Conclusion: No evidence of focal fixed or reversible perfusion defects. Increase in transient ischemic dilatation ratio (TID 1.21), suggestive of possible multivessel disease or balanced ischemia. Gated imaging demonstrates normal global and regional LV systolic function. LVEF is calculated at 72%. Electronically signed by : Marisol Lee MD 08/20/2023 13:25:40
[2023-08-18] MEDS: REGADENOSON 0.4MG/5ML SYRINGE 0.400000000000000022 MG IV (14:14)
[2023-08-18] MEDS: ISOTOPE MYOVIEW (PER STUDY) 1 DOSE IV (14:14)
[2023-08-18] MEDS: SODIUM CHLORIDE 0.9% 10ML SYR (RAD ONLY) 10 ML IV ×2 (14:14)
--- NOTE | 2023-08-18 14:25 | CA_ITS ---
APPROVED REPORT Exam: Pharmacologic Technologist: Monica Tillman, Ht: 5 ft 3 in Wt: 205 lbs BSA: 1.95 m2 HR: 95 bpm BP: 184/100 mmHg 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 Medications: Pantoprazole,,,,, Carvedilol,,,,, Valsartan,,,,, Magnesium,,,,, Latanoprost,,,,, MeLIZINE,,,,, Stress Test Details Test: LEXISCAN Reason for pharmacologic stress test: physical limitation. HR Resting HR: 95 bpm Max Heart Rate (APMHR): 156 bpm Max HR Achieved: 118 bpm Target HR (85% APMHR): 133 bpm % of APMHR: 76 Recovery HR: 89 bpm BP Resting BP: 184.0/100.0 mmHg Max BP: 196.0/108.0 mmHg Recovery BP: 179.0/98.0 mmHg ECG Resting ECG: Normal sinus rhythm, delayed R/S transition, low precordial voltage Stress ECG: No significant ST changes Clinical Exercise duration: 04:00 min Highest Stage Achieved: Stress ECG Conclusion Symptoms: SOB & pain in right side of neck with Lexiscan. Arrhythmias/Ectopy: None ST-T Changes: no ST segment changes with Lexiscan infusion. Conclusion: Unremarkable Lexiscan stress test. Myoview images are reported separately. Test Summary REST 15:18 . . 95 . 184/100 . . Stage 1 . . . . . . . Cardiolite injected Stage 1 01:00 . . 118 . . . . Stage 2 01:00 . . 111 . . . . Stage 3 01:00 . . 101 . 191/107 . . Stage 4 01:00 . . 95 . 186/ 97 . Stop exercise at 04:00 RECOVERY 01:00 . . 91 . 189/ 97 . . RECOVERY 02:00 . . 87 . 177/ 96 . . RECOVERY 02:59 . . 86 . 179/ 98 . . Electronically signed by : Marisol Lee MD 08/20/2023 13:24:23
== END 2023-08-18 23:59 ==
LOC: RAD 11:59
PROVIDERS: PCP Internal Medicine Adolescent Medicine; Visit Provider Internal Medicine
DX: R00.2 Palpitations (principal); R07.89 Other chest pain; R06.00 Dyspnea, unspecified; R10.13 Epigastric pain; R42 Dizziness and giddiness; R94.31 Abnormal electrocardiogram [ECG] [EKG]; K21.9 Gastro-esophageal reflux disease without esophagitis
CPT/HCPCS: 78452; 93017; 93018; A9502; J2785

== ENCOUNTER 2023-09-09 12:41 | Outpatient (CLI) | payer MEDICARE, MEDICAID, SELFPAY ==
[2023-09-09 13:53] LABS: Anion Gap 9.1 mEq/L (5-15); Blood Urea Nitrogen 16 mg/dl (7-17); Calcium 9.5 mg/dl (8.4-10.2); Carbon Dioxide 30 mmol/L (22.0-30.0); Chloride 105 mmol/L (98-107); Estimated Glomerular Filt Rate 63 ml/min (>60); GFR (African American) 76 ML/MIN (>60); Glucose 117 mg/dl (74-100); Potassium 4.1 mmoL/L (3.5-5.1); Sodium 140 mmol/L (136-145)
== END 2023-09-09 23:59 ==
LOC: LAB 12:43
PROVIDERS: PCP Internal Medicine Adolescent Medicine; Visit Provider Nurse Practitioner Family
DX: I20.89 Other forms of angina pectoris (principal); R94.39 Abnormal result of other cardiovascular function study
CPT/HCPCS: 36415; 80048

== ENCOUNTER 2023-09-16 08:01 | Day surgery (SDC) | payer MEDICARE, MEDICAID, SELFPAY ==
[2023-09-16] VITALS (13 sets, daily range): BP systolic 117–194; BP diastolic 69–103; PULSE 72–91; RESP 17–19; TEMP 36.6; O2SAT 91–98; BMI 36.6
--- NOTE | 2023-09-16 07:04 | IR_ITS ---
APPROVED REPORT Patient Location: Outpatient PROCEDURES Left heart catheterization Left ventriculogram Selective coronary angiogram INDICATION Abnormal stress test, Angina pectoris Informed consent was obtained prior to the procedure. COMPLICATIONS NONE Estimated Blood Loss: LESS THAN 10 ML TECHNIQUE One percent lidocaine used to anesthetize the right anterior aspect of the wrist. The right radial artery was accessed via the Seldinger technique. A 6 Czech sheath was placed in the right radial artery. 2.5 mg of Verapamil, 800 mcg of nitroglycerin, 1mg Lidocaine and 5000 U Heparin were given through the arterial sheath. The papa catheter was also used to perform left heart catheterization, left ventriculogram and selective coronary angiogram. At the end of the procedure the sheath was removed good hemostasis was achieved using Traclet band, patient was transferred to the postop holding area in stable condition. ANGIOGRAPHIC RESULTS The left main artery Normal The left anterior descending artery Has proximal and mid vessel 20 to 30% stenoses The circumflex artery Nondominant with 20 to 30% mid vessel stenoses The right coronary artery Dominant normal [place] ventriculogram reveals Normal 65% The left ventricular end-diastolic pressure 15 mmHg IMPRESSION Mild nonocclusive coronary disease as described above Normal ejection fraction Normal left ventricular end-diastolic pressure PLAN 1. Risk factor modification 2. Evaluation of noncardiac symptoms Electronically signed by : Yunior Abdi MD 09/24/2023 12:34:55
[2023-09-16 08:32] LABS: Basophils # 0.1 K/mm3 (0-0.2); Basophils % 1.3 % (0.1-2.0); Eosinophils # 0.5 K/mm3 (0.0-0.4); Eosinophils % 6.5 % (0.1-12.0); Hematocrit 44.6 % (37.0-47.0); Lymphocytes # 1.6 K/mm3 (0.7-4.5); Lymphocytes % 23.4 % (10-50); Mean Corpuscular HGB Conc 31.3 g/dL (31.8-35.4); Mean Corpuscular Hemoglobin 27.7 pg (27.0-31.2); Mean Corpuscular Volume 88.2 fl (81-99); Mean Platelet Volume 7.6 fl (7.4-10.4); Monocytes # 0.3 K/mm3 (0.1-1.0); Monocytes % 4.8 % (1.7-9.3); Neutrophils # 4.4 K/mm3 (1.8-7.8); Platelet Count 265 K/mm3 (142-424); Red Blood Count 5.06 M/mm3 (4.20-5.40); Red Cell Distribution Width 14.7 % (11.5-17.5); White Blood Count 6.9 K/mm3 (4.8-10.8)
[2023-09-16 08:38] LABS: Anion Gap 10.2 mEq/L (5-15); Blood Urea Nitrogen 14 mg/dl (7-17); Calcium 9.3 mg/dl (8.4-10.2); Carbon Dioxide 29 mmol/L (22.0-30.0); Chloride 107 mmol/L (98-107); Creatinine Clearance Estimated 84 mL/min (50-200); Estimated Glomerular Filt Rate 63 ml/min (>60); GFR (African American) 76 ML/MIN (>60); Glucose 111 mg/dl (74-100); Potassium 4.2 mmoL/L (3.5-5.1); Sodium 142 mmol/L (136-145)
[2023-09-16] MEDS: LIDOCAINE 1% 10ML MDV 20 ML IJ (10:11)
[2023-09-16] MEDS: HEPARIN 1,000 UNITS/ML 10ML VIAL (CATH LAB) 10000 UNIT IV (10:11)
[2023-09-16] MEDS: HEPARIN 1,000 UNITS/500ML NS (CATH LAB) 3000 UNIT IV (10:11)
[2023-09-16] MEDS: 0.9 % SODIUM CHLORIDE 500 ML 25 ML IV (10:11)
[2023-09-16] MEDS: diphenhydrAMINE 50MG/ML VIAL 50 MG IV (10:12)
[2023-09-16] MEDS: NITROGLYCERIN 800MCG/8ML SYR (CATH LAB) 800 MCG IA (10:12)
[2023-09-16] MEDS: VERAPAMIL 2.5MG/ML 2ML VIAL 2.5 MG IV (10:12)
[2023-09-16] MEDS: FENTANYL 100MCG/2ML VIAL 50 MCG IV (10:29)
[2023-09-16] MEDS: MIDAZOLAM HCL 1MG/1ML 5ML VIAL 1 MG IV (10:29)
[2023-09-16] MEDS: IOPAMIDOL-370 (76%);100ML BOTTLE 50 ML IV (10:55)
== END 2023-09-16 13:25 | disposition home or self-care (01) ==
PROVIDERS: PCP Internal Medicine Adolescent Medicine; Visit Provider Internal Medicine
DX: I10 Essential (primary) hypertension (principal); I70.1 Atherosclerosis of renal artery; K21.9 Gastro-esophageal reflux disease without esophagitis; R00.2 Palpitations; R06.00 Dyspnea, unspecified; R42 Dizziness and giddiness; R94.31 Abnormal electrocardiogram [ECG] [EKG]; R94.39 Abnormal result of other cardiovascular function study; Z79.899 Other long term (current) drug therapy; I25.118 Atherosclerotic heart disease of native coronary artery with other forms of angina pectoris; Z86.16 Personal history of COVID-19; J44.9 Chronic obstructive pulmonary disease, unspecified; Z87.891 Personal history of nicotine dependence; I15.0 Renovascular hypertension
CPT/HCPCS: 80048; 85025; 93458; 99152; C1725; C1769; J1644; Q9967

== ENCOUNTER 2024-01-24 15:23 | Emergency (ER) | payer MEDICARE, MEDICAID, SELFPAY ==
--- OUTSIDE RECORDS SUMMARY | 2024-01-24 15:27 | XMS_ITS | Patient Health Record ---
Author Name Unknown Organization 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 Bus Aide Name Role Phone Js Marie Primary Care Provider Kathleen Scruggs Unavailable [phone] Vera Gutierres Unavailable [phone] ALLERGIES Allergen (clinical drug ingredient) Drug/Non Drug Allergy documented on EMR Reaction Allergy Type Onset Date Status ciprofloxacin Cipro Unknown Drug Allergy Act pushpa Levaquin Unknown Drug Allergy Active meloxicam meloxicam keeps her awake Drug Allergy A ctive RESULTS Component Value Reference Range Notes VITAMIN D,25-OH,TOTAL,IA (17 306) Reviewed date:06/16/2023 10:42:13 AM Interpretation: Performing Lab:JULIAN, [facility] Roberto Henderson Notes/Report: NON-FASTING; NON-FASTING; NON-FASTING; NON-FASTING; NON-FAST FASTING:YES FASTING: YES VITAMIN D,25-OH,TOTAL,IA 49 30-100 ng/mL Vitamin D Status 25-OH Vitamin D: Deficiency: <20 ng/mL Insufficiency: 20 - 29 ng/mL Optimal: > or = 30 ng/mL For 25-OH Vitamin D testing on patients on D2-supplementation and patients for whom quantitation of D2 and D3 fractions is required, the QuestAssureD(TM) 25-OH VIT D, (D2,D3), LC/MS/MS is recommended: order code 02911 (patients >2yrs). See Note 1 Note 1 For additional information, please refer to http://education.Conzoom/faq/GGG808 (This link is being provided for informational/ educational purposes only.) TSH W/REFLEX TO FT4 (93907) Reviewed date:06/16/2023 10:42:13 AM Interpretation: Performing Lab:JULIAN [facility] [address], [place] Roberto Henderson Notes/Report: NON-FASTING; NON-FASTING; NON-FASTING; NON-FASTING; NON-FAST FASTING:YES FASTING: YES TSH W/REFLEX TO FT4 1.59 0.40-4.50 mIU/L VITAMIN B12 (927) Reviewed date:06/16/2023 10:42:13 AM Interpretation: Performing Lab:JULIAN [facility], [place] Roberto Henderson Notes/Report: NON-FASTING; NON-FASTING; NON-FASTING; NON-FASTING; NON-FAST FASTING:YES FASTING: YES VITAMIN B12 410 335-6096 pg/mL HEMOGLOBIN A1c (496) Reviewed date:06/16/2023 10:42:13 AM Interpretation: Performing Lab:JULIAN [facility] [address], [place]MfhkYZ[address] Roberto Henderson Notes/Report: NON-FASTING; NON-FASTING; NON-FASTING; NON-FASTING; NON-FAST FASTING:YES FASTING: YES HEMOGLOBIN A1c 5.8 <5.7 % of total Hgb For someone without known diabetes, a hemoglobin A1c value between 5.7% and 6.4% is consistent with prediabetes and should be confirmed with a follow-up test. For someone with known diabetes, a value <7% indicates that their diabetes is well controlled. A1c targets should be individualized based on duration of diabetes, age, comorbid conditions, and other considerations. This assay result is consistent with an increased risk of diabetes. Currently, no consensus exists regarding use of hemoglobin A1c for diagnosis of diabetes for children. CBC (INCLUDES DIFF/PLT) (639 9) Reviewed date:06/16/2023 10:42:13 AM Interpretation: Performing Lab:CB, [facility] [address] [facility], [facility] [place]JqkjZD[address] Roberto Henderson Notes/Report: NON-FASTING; NON-FASTING; NON-FASTING; NON-FASTING; NON-FAST FASTING:YES FASTING: YES WHITE BLOOD CELL COUNT 7.2 3.8-10.8 Thousand/ uL RED BLOOD CELL COUNT 4.98 3.80-5.10 Million/uL HEMOGLOBIN 13.5 11.7-15.5 g/dL HEMATOCRIT 41.5 35.0-45.0 % MCV 83.3 80.0-100.0 fL MCH 27.1 27.0-33.0 pg MCHC 32.5 32.0-36.0 g/dL RDW 13.8 11.0-15.0 % PLATELET COUNT 309 140-400 Thousand/uL MPV 9.8 7.5-12.5 fL ABSOLUTE NEUTROPHILS 4349 2713-7232 cells/uL ABSOLUTE LYMPHOCYTES 2002 850-3900 cells/uL ABSOLUTE MONOCYTES 403 200-950 cells/uL ABSOLUTE EOSINOPHILS 389 15-500 cells/uL ABSOLUTE BASOPHILS 58 0-200 cells/uL NEUTROPHILS 60.4 LYMPHOCYTES 27.8 MONOCYTES 5.6 EOSINOPHILS 5.4 BASOPHILS 0.8 COMPREHENSIVE METABOLIC PANE (63479) Reviewed date:06/16/2023 10:42:13 AM Interpretation: Performing Lab:JULIAN [facility], [facility] MinnesotaGbnoNQ[address] Roberto Henderson Notes/Report: NON-FASTING; NON-FASTING; NON-FASTING; NON-FASTING; NON-FAST FASTING:YES FASTING: YES GLUCOSE 97 65-99 mg/dL Fasting reference interval UREA NITROGEN (BUN) 15 7-25 mg/dL CREATININE 0.74 0.50-1.05 mg/dL EGFR 90 > OR = 60 mL/min/1.73m2 BUN/CREATININE RATIO SEE NOTE: 6-22 (calc) Not Reported: BUN and Creatinine are within reference range. SODIUM 142 135-146 mmol/L POTASSIUM 4.8 3.5-5.3 mmol/L CHLORIDE 108 98-110 mmol/L CARBON DIOXIDE 26 20-32 mmol/L CALCIUM 9.8 8.6-10.4 mg/dL PROTEIN, TOTAL 6.9 6.1-8.1 g/dL ALBUMIN 4.3 3.6-5.1 g/dL GLOBULIN 2.6 1.9-3.7 g/dL (calc) ALBUMIN/GLOBULIN RATIO 1.7 1.0-2.5 (calc) BILIRUBIN, TOTAL 0.5 0.2-1.2 mg/dL ALKALINE PHOSPHATASE 86 37-153 U/L AST 12 10-35 U/L ALT 12 6-29 U/L LIPID PANEL, STANDARD (7600) Reviewed date:06/16/2023 10:42:13 AM Interpretation: Performing Lab:[facility], Children[facility] MinnesotaAxuoQQ[address] Roberto Henderson Notes/Report: NON-FASTING; NON-FASTING; NON-FASTING; NON-FASTING; NON-FAST FASTING:YES FASTING: YES CHOLESTEROL, TOTAL 192 <200 mg/dL HDL CHOLESTEROL 57 > OR = 50 mg/dL TRIGLYCERIDES 112 <150 mg/dL LDL-CHOLESTEROL 113 Reference range: <100 Desirable range <100 mg/dL for primary prevention; <70 mg/dL for patients with CHD or diabetic patients with > or = 2 CHD risk factors. LDL-C is now calculated using the Philippe-Johnson calculation, which is a validated novel method providing better accuracy than the Friedewald equation in the estimation of LDL-C. Philippe SS et al. CHUCK. 2013;310(19): 9566-3119 (http://education.[employer].com/faq/XQT688) CHOL/HDLC RATIO 3.4 <5.0 (calc) NON HDL CHOLESTEROL 135 <130 mg/dL (calc) For patients with diabetes plus 1 major ASCVD risk factor, treating to a non-HDL-C goal of <100 mg/dL (LDL-C of <70 mg/dL) is considered a therapeutic option. CT Scan : Chest, Lung Cancer Screening Reviewed date:07/10/2023 04:01:31 PM Interpretation: Performing Lab: Notes/Report: CT Scan : Chest, Lung Cancer Screening Reviewed date:07/10/2023 04:01:31 PM Interpretation: Performing Lab: Notes/Report: MRI : Shoulder, Right Reviewed date:10/10/2023 09:23:30 AM Interpretation: Performing Lab: Notes/Report: TSH (899) Reviewed date:10/27/2023 02:29:15 PM Interpretation: Performing Lab:[facility] [address], [facility] MinnesotaNzqmJK[address] Roberto Henderson Notes/Report: NON-FASTING; NON-FASTING; NON-FASTING; NON-FASTING TSH 1.50 0.40-4.50 mIU/L CBC (INCLUDES DIFF/PLT) (639 9) Reviewed date:10/27/2023 02:29:15 PM Interpretation: Performing Lab:JULIAN [facility] [address], [facility] MinnesotaWqquGP[address] Roberto Henderson Notes/Report: NON-FASTING; NON-FASTING; NON-FASTING; NON-FASTING WHITE BLOOD CELL COUNT 7.9 3.8-10.8 Thousand/ uL RED BLOOD CELL COUNT 5.25 3.80-5.10 Million/uL HEMOGLOBIN 14.0 11.7-15.5 g/dL HEMATOCRIT 42.8 35.0-45.0 % MCV 81.5 80.0-100.0 fL MCH 26.7 27.0-33.0 pg MCHC 32.7 32.0-36.0 g/dL RDW 14.2 11.0-15.0 % PLATELET COUNT 309 140-400 Thousand/uL MPV 9.7 7.5-12.5 fL ABSOLUTE NEUTROPHILS 4780 9737-3823 cells/uL ABSOLUTE LYMPHOCYTES 2252 850-3900 cells/uL ABSOLUTE MONOCYTES 403 200-950 cells/uL ABSOLUTE EOSINOPHILS 387 15-500 cells/uL ABSOLUTE BASOPHILS 79 0-200 cells/uL NEUTROPHILS 60.5 LYMPHOCYTES 28.5 MONOCYTES 5.1 EOSINOPHILS 4.9 BASOPHILS 1.0 MAGNESIUM (622) Reviewed date:10/27/2023 02:29:15 PM Interpretation: Performing Lab:JULIAN [facility] [address], [facility] MinnesotaHoiuTV[address] Roberto Henderson Notes/Report: NON-FASTING; NON-FASTING; NON-FASTING; NON-FASTING MAGNESIUM 2.1 1.5-2.5 mg/dL COMPREHENSIVE METABOLIC PANE L (66249) Reviewed date:10/27/2023 02:29:15 PM Interpretation: Performing Lab:JULIAN [facility] [address], [facility] MinnesotaPcovGN[address] Roberto Henderson Notes/Report: NON-FASTING; NON-FASTING; NON-FASTING; NON-FASTING GLUCOSE 92 65-99 mg/dL Fasting reference interval UREA NITROGEN (BUN) 21 7-25 mg/dL CREATININE 0.77 0.50-1.05 mg/dL EGFR 86 > OR = 60 mL/min/1.73m2 BUN/CREATININE RATIO SEE NOTE: 6- (calc) Not Reported: BUN and Creatinine are within reference range. SODIUM 140 135-146 mmol/L POTASSIUM 4.8 3.5-5.3 mmol/L CHLORIDE 106 98-110 mmol/L CARBON DIOXIDE 27 20-32 mmol/L CALCIUM 10.0 8.6-10.4 mg/dL PROTEIN, TOTAL 7.2 6.1-8.1 g/dL ALBUMIN 4.5 3.6-5.1 g/dL GLOBULIN 2.7 1.9-3.7 g/dL (calc) ALBUMIN/GLOBULIN RATIO 1.7 1.0-2.5 (calc) BILIRUBIN, TOTAL 0.4 0.2-1.2 mg/dL ALKALINE PHOSPHATASE 94 37-153 U/L AST 14 10-35 U/L ALT 13 6-29 U/L MEDICATIONS Medication SIG (Take, Route, Frequency, Duration) Notes Start Date End Date Status carvedilol 6.25 mg 1 tab(s) orally 2 ti mes a day for 90 days Active pantoprazole 40 mg 1 tab(s) orally once a day for 90 days Active Diclofenac Sodium Topical 1% as directed applied topically 4 times a day prn 04/28/2023 Active fluticasone nasal 50 mcg/inh 1 spray(s) in each nostril once a day for 30 day(s) 04/12/2022 Active Meclizine Hydrochloride 25 mg 1 tab(s) orally 2 times a day as needed for vertigo for 30 days 12/13/2021 Active latanoprost ophthalmic 0.005% 1 gtt in each eye once a day (in the evening) Active Cetirizine Hydrochloride 10MG 1 tab(s) orally once a day for 30 prn Active SOCIAL HISTORY Sex Assigned At : Social History Observation Description Sex Assigned At Unknown PROBLEMS Problem Type ICD Code Onset Dates Problem Status W/U Status Risk SNOMED Code Notes Problem COPD with exacerbation (J44.1) Active confirmed 233833865 Problem Anxiety (F41.9) Active confirmed 433746 02 Problem Vitamin D deficiency (E55.9) Active confirmed 99397029 Problem Hyperglycemia (R73.9) Active confirmed 00937145 Problem Rotator cuff syndrome of right shoulder (M75.101) Active confirmed 277294989823797 Problem Heart palpitations (R00.2) Active confirmed 36390393 Problem Chronic allergic rhinitis (J30.9) Active confirmed 14336310 Problem BMI 34.0-34.9,adult (Z68.34) Active confirmed 441930992 Problem BMI 33.0-33.9,adult (Z68.33) Active confirmed 737253092 Problem Other chronic pain (G89.29) Active confirmed 82036939 Problem COPD (chronic obstructive pulmonary disease) with chronic bronchitis (J44.9) Active confirmed 712679107 Problem BMI 32.0-32.9,adult (Z68.32) Active confirmed 655237009 Problem Coronary artery disease involving [place] coronary artery of [place] heart without angina pectoris (I25.10) Active confirmed 34965291 Problem Asthma-COPD overlap syndrome (J44.9) Active confirmed 74185794878359934 Problem Benign essential HTN (I10) Active confirmed 9222915 Problem Dysphagia, unspecified type (R13.10) Active confirmed 77121011 Problem Chronic vertigo (R42) Active confirmed 71138705065682 Problem Lung nodule seen on imaging study (R91.1) Active confirmed 440132307 Problem Chronic GERD (K21.9) Active confirmed 080407491 Problem History of gastritis (Z87.19) Active confirmed 723226513084275 Problem History of tobacco use (Z87.891) Active confirmed 1784204575571 VITAL SIGNS Heart Rate 88 /min 10/31/2023 Temperature 98.2 degrees Fahrenheit 10/31/2023 Blood pressure diastolic 74 mm Hg 10/31/2023 Height 5 ft 4 in in 10/31/2023 Blood pressure systolic 122 mm Hg 10/31/2023 Weight 205.4 lbs 10/31/2023 BMI 35.25 kg/m2 10/31/2023 Encounters Encounter Location Date Provider Diagnosis [facility] [address] [place] [address] 08/07/2023 Vera Nenita [facility] 2017 [facility] [address] [place] [address] 04/28/2023 Vera McNees Rotator cuff syndrom e of right shoulder M75.101 [facility] [address] [address] 06/13/2023 Vera McNees Chronic vertigo R42 ; Encounter for Medicare annual wellness exam Z00.00 ; Asthma-COPD overlap syndrome J44.9 ; Hyperglycemia R73.9 ; Lung nodule seen on imaging study R91.1 ; Benign essential HTN I10 ; History of tobacco use Z87.891 ; Vitamin D deficiency E55.9 ; Rotator cuff syndrome of right shoulder M75.101 ; Vitamin B12 deficiency E53.8 ; BMI 34.0-34.9,adult Z68.34 and Heart palpitations R00.2 [facility] [address] [address] 10/24/2023 Vera McNees Dizziness R42 ; Coronary artery disease involving [place] coronary artery of [place] heart without angina pectoris I25.10 ; Skin lesion L98.9 and Muscle cramps R25.2 [facility] [address] [address] 10/31/2023 Vera McNees Plantar fasciitis, bilateral M72.2 and Benign essential HTN I10 [facility] [address] [facility] [address] [place] [address] 06/16/2023 Vera McNees [facility] [address] [facility] [address] [place] [address] 07/04/2023 Vera McNees [facility] [address] [facility] [address] [place] [address] 07/18/2023 Js Marie [facility] [address] [facility] [address] [place] [address] 09/26/2023 Vera McNees Rotator cuff syndrom e of right shoulder M75.101 [facility] [address] [facility] [address] [place] [address] 10/31/2023 Vera McNees [facility] [address] [facility] [address] [place] [address] 10/31/2023 Vera McNees Coronary artery disease involving [place] coronary artery of [place] heart without angina pectoris I25.10 ASSESSMENTS Encounter Date Diagnosis Assessment Notes Treatment Notes Treatment Clinical Notes 10/31/2023 Coronary artery disease involving [place] coronary artery of [place] heart without angina pectoris (ICD-10 - I25.10) 10/31/2023 Benign essential HTN (ICD-10 - I10) Dizziness has resolved. Blood pressure at goal today, no changes 10/31/2023 Plantar fasciitis, bilateral (ICD-10 - M72.2) Discussed etiology of disease, and options. Emphasized need for good footwear and arch supports. topical NSAIDS, ice and heat - and exercise progrram discussed in detail. Role and side effects of cortisone injection into plantar fascia discussed. Voltaren samples given 10/24/2023 Dizziness (ICD-10 - R42) 10/24/2023 Coronary artery disease involving [place] coronary artery of [place] heart without angina pectoris (ICD-10 - I25.10) Heart cath report and cardiology note reviewed. Dizziness likely related to combination of beta juve and vertigo. Cut BB dose in half as above. Will check labs today and FU in 1 week. Return precautions discussed 09/26/2023 Rotator cuff syndrome of right shoulder (ICD-10 - M75.101) 06/13/2023 Encounter for Medicare annual wellness exam (ICD-10 - Z00.00) C-scope UTD. Routine labs drawn today. Due for mammogram, will arrange. Declines flu and Tdap 06/13/2023 Chronic vertigo (ICD-10 - R42) At baseline on PRN meclizine 04/28/2023 Rotator cuff syndrome of right shoulder (ICD-10 - M75.101) Rest, ice/heat, topical NSAID, Dexmethasone IM. Refer to PT/OT for evaluation and treatment. If no improvement after 4 weeks of therapy will consider MRI. 06/13/2023 Asthma-COPD overlap syndrome (ICD-10 - J44.9) SOA at baseline. Due for repeat low dose CT chest, will arrange 10/24/2023 Skin lesion (ICD-10 - L98.9) 10/24/2023 Muscle cramps (ICD-10 - R25.2) Likely related to statin, will check mag level and re-evaluate at FU 06/13/2023 Hyperglycemia (ICD-10 - R73.9) Prediabetes on previous labs. Discussed diabetic diet, weight loss, increasing activity. Will check a1c and treat as indicated 06/13/2023 Lung nodule seen on imaging study (ICD-10 - R91.1) Repeat CT later this month 06/13/2023 Benign essential HTN (ICD-10 - I10) Blood pressure at goal 06/13/2023 History of tobacco use (ICD-10 - Z87.891) 06/13/2023 Vitamin D deficiency (ICD-10 - E55.9) Will check vit d level and treat as indicated. 06/13/2023 Rotator cuff syndrome of right shoulder (ICD-10 - M75.101) Failed rest, PT/OT, anti-inflammatory. Needs MRI, will arrange. 06/13/2023 Vitamin B12 deficiency (ICD-10 - E53.8) Will check b12 level and treat as indicated. 06/13/2023 BMI 34.0-34.9,adult (ICD-10 - Z68.34) Recommend weight loss. Current BMI, diet and need for weight loss discussed. Will recheck at FU in 3 months 06/13/2023 Heart palpitations (ICD-10 - R00.2) Doing well on bisoprolol. No changes made today. Keep FU with cardiology to discuss event recorder PLAN OF TREATMENT Pending Test Test Name Order Date X ray : Chest 10/01/2013 MRI : Shoulder, Right 06/13/2023 Barium : Small Bowel Follow Through 12/12 X ray : Hand, Left 12/22/2013 EKG : In House 12/13/2021 Physical Therapy 11/26/2017 CT Scan : Chest, With & Without Contrast 09/24/2013 Mammogram : Bilateral 06/13/2023 H-PERTUSSIS CULTURE 06/29/2012 X ray : Chest PA and Lateral 02/29/2020 M-Complete Blood Count Auto Diff 021 M-Complete Blood Count Auto Diff 019 M-Comprehensive Metabolic Panel 09/07/19 21 M-Basic Metabolic Panel 11/30/2018 M-Lipid Panel 09/07/2020 M-Vitamin B12 06/12/2022 M-Vitamin D 25 Hydroxy 06/12/2022 M-Immunoglobulin E, Total 11/30/2018 M-Sputum Culture & Gram Stain 10/21/2018 M-COVID PCR SINGLE RAPID 02/29/2020 Next Appt Details Provider Name:Vera Bryant, 01/30/2024 11:30:00 AM, 2017 [facility] [address], [place], [address], Insurance Providers Payer Name Payer Address Payer Phone Subscriber Number Group Number Insured Name Patient Relationship to Insured Coverage Start Date Coverage End Date [employer] DUAL [address] [address] [place] [address] [id number] Thalia Bourgeois Self - patient is the insured MEDICATIONS ADMINISTERED Medication Instructions Date of Administration Dosage Notes Ceftriaxone 500 10/22/2018 500 mg Dexamethasone 4mg Injection 04/28/2023 4 mg MEDICAL (GENERAL) HISTORY 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 History ICD Code hypertension Fibromyalgia Glaucoma Tremors mini strokes colonoscopy 11/01 with tubular adenomas asthma/COPD with past tobacco use chest pain syndrome with neg ative heart catheter in April 2015, normal EF, normal coronaries - normal myoview 09/06 - But left heart cath done with mild nonocclusive disease 10/04 EGD November 2018 with Schatzki's ring, status post dilatation and bile acid reflux - repeated 11/01 with similar findings Surgical History Surgery Date(Month/Year) Choelcystetomy 2011 Total hysterectomy 2009 Breast biopsies (bilateral) Heart cath-clear 2016 heart cath
[2024-01-24 15:35] VITALS: BP 218/113; PULSE 89; RESP 20; TEMP 37.4; O2SAT 94; BMI 35.4
[2024-01-24 15:53] LABS: Apearance,Urine Clear (Clear); Color,Urine Yellow (Yellow)
[2024-01-24 15:54] LABS: Bilirubin,Urine Negative (Negative); Blood, Urine Negative (Negative); Glucose,Urine (UA) Negative (Negative); Ketones,Urine Negative (Negative); PH,Urine 7.5 (5.0-8.5); Protein,Urine Negative (Negative); Specific Gravity, Urine 1.015 (1.005-1.030); UTC Leukocyte Esterase,Urine Negative (Negative); UTC Nitrate,Urine Negative (Negative); Urobilinogen,Urine 0.2 EU/dl (0.2)
--- NOTE | 2024-01-24 16:04 | EXP.UTC ---
Discharge Plan Disposition Patient Disposition: Still a Patient Prescriptions Prescriptions: No Action meclizine 25 mg tablet 25 mg PO DAILY PRN (Reason: Nausea) pantoprazole 20 mg tablet,delayed release (DR/EC) 20 mg PO DAILY PRN (Reason: stomach) magnesium Tablet 1 tab PO DAILY latanoprost (PF) 7.5 ML drops 7.5 ml OP DAILY carvedilol 12.5 mg tablet 6.25 mg PO DAILY Rx Instructions: TAKE 1 TABLET BY MOUTH TWICE DAILY WITH A MEAL /FOOD Referrals Follow up/Referrals: Js Marie MD [Primary Care Provider] - See instructions Discharge ED Provider: Lynda Vargas [facility] [place] HPI General Stated complaint: R side pain nausea Mode of Arrival: Ambulatory Source of Information: Patient Limitations: No Limitations Time Seen by Provider: 01/24/24 16:05 Description of Symptoms (Recalled from Triage Doc. by RN): PATIENT C/O DULL PAIN TO RIGHT SIDE X 2 DAYS AND NAUSEA THAT STARTED TODAY HEENT Symptoms (Recalled from RN notes): No Resp Symptoms (Recalled from RN notes): No Skin Symptoms (Recalled from RN notes): No MS Symptoms (Recalled from RN notes): No Functional Status (Recalled from RN notes): WNL History of Present Illness Provider Complaint: 63 yr old female presents for rt abd pain and nausea. pt states pain kept her up all night.hx of diverticulitis Related Data Home Medications Medication Instructions Recorded Confirmed latanoprost (PF) 0.005 % eye drops 7.5 ml ophthalmic (eye) DAILY eyes 10/26/20 01/24/24 pantoprazole 20 mg tablet,delayed 20 mg PO DAILY PRN stomach 12/26/21 01/24/24 release magnesium 1 tab PO DAILY 07/30/23 01/24/24 meclizine 25 mg tablet 25 mg PO DAILY PRN Nausea 08/25/23 01/24/24 carvedilol 12.5 mg tablet 6.25 mg PO DAILY 12/17/23 01/24/24 Allergies Allergy/AdvReac Type Severity Reaction Status Date / Time azithromycin [AZITHROMYCIN] Allergy Unknown Verified 12/17/23 08:16 clarithromycin Allergy Unknown Verified 12/17/23 08:16 [CLARITHROMYCIN] levofloxacin [From LEVAQUIN] Allergy Unknown Verified 12/17/23 08:16 metoprolol AdvReac Wheezing Verified 12/17/23 08:16 sulfamethoxazole AdvReac Verified 12/17/23 08:16 [From Bactrim] trimethoprim [From Bactrim] AdvReac Verified 12/17/23 08:16 Worker's Comp Is this a Worker's Comp case?: No [facility] Disclaimer: The information contained in this section may have been updated after the patient was seen, as this information can be updated by other users. 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) H/O esophagogastroduodenoscopy History of cholecystectomy History of hysterectomy Family History , 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) Family history of cancer Family history of myocardial infarction Social History , 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) Smoking Status: Former smoker tobacco type: cigarettes alcohol intake: never substance use type: denies use current occupational status: disabled Travel in the last 8 weeks: None housing: house current occupational exposures/hazards: No caffeine: Yes ROS Obtained: Yes All systems reviewed & no additional complaints except as documented Constitutional Constitutional: Reports system reviewed and no additional complaints, except as documented Eyes Eyes: Reports system reviewed and no additional complaints, except as documented ENT Ears, Nose, Mouth, and Throat: Reports system reviewed and no additional complaints, except as documented Cardiovascular Cardiovascular: Reports system reviewed and no additional complaints, except as documented Respiratory Respiratory: Reports system reviewed and no additional complaints, except as documented Gastrointestinal Gastrointestingal: Reports system reviewed and no additional complaints, except as documented, as per HPI, abdominal pain and nausea Genitourinary Female Genitourinary: Reports system reviewed and no additional complaints, except as documented Integumentary/Breasts Skin/Breast: Reports system reviewed and no additional complaints, except as documented Neurologic Neurologic: Reports system reviewed and no additional complaints, except as documented Endocrine Endocrine: Reports system reviewed and no additional complaints, except as documented Hematologic/Lymphatic Henatologic/Lymphatic: Reports system reviewed and no additional complaints, except as documented Physical Exam General General appearance: alert and in no apparent distress Eye Eye exam: Present normal appearance ENT ENT exam: Present normal exam Respiratory Respiratory exam: Present normal lung sounds bilaterally Cardiovascular Cardiovascular exam: Present regular rate and normal rhythm Abdominal Exam Abdominal exam: Present soft, tenderness and normal bowel sounds Neurological Exam Neurological exam: Present alert and oriented X3 Lymphatic Lymphatic Findings: no adenopathy Medical Decision Making Medical Records Medical records reviewed: Yes I reviewed the patient's medical records. Chalo Inquiry Pt receiving controlled substance: No Chalo was queried for this patient: No Vital Signs: 01/24/24 15:35 Temperature 99.4 F Temperature Source Oral Pulse Rate [Left Brachial] 89 Respiratory Rate 20 Blood Pressure [Left Arm] 218/113 H Blood Pressure Mean [Left Arm] 148 Blood Pressure Source [Left Arm] Automatic Cuff Blood Pressure Position [Left Arm] Sitting 02 Sat by Pulse Oximetry 94 L Oxygen Delivery Method Room Air Lab Data Lab results reviewed: Yes I reviewed the patient's lab results. Lab Results 01/24/24 15:53: Urine Color Yellow, Urine Appearance Clear, Urine pH 7.5, Ur Specific [place] 1.015, Urine Protein Negative, Urine Glucose (UA) Negative, Urine Ketones Negative, Urine Blood Negative, Urine Nitrate Negative, Urine Bilirubin Negative, Urine Urobilinogen 0.2, Ur Leukocyte Esterase Negative Physician Consults Physician Consulted: dr vargas Time: 16:15 Reason -: Pt condition Comment/Response: sent to ed for eval
[2024-01-24 16:15] VITALS: BP 199/105; PULSE 92; RESP 20; TEMP 36.7; O2SAT 95; BMI 35.4
[2024-01-24 16:19] VITALS: BP 199/106; PULSE 78; RESP 18; O2SAT 95
--- NOTE | 2024-01-24 16:29 | PC.NURSE ---
DR DELUNA AT BEDSIDE
--- NOTE | 2024-01-24 16:31 | ECG_ITS ---
APPROVED REPORT Exam: Resting ECG HR:81 bpm ECG Measurements Heart Rate 81 AXES DE 121 P 60 QRSd 82 QRS 10 QT 376 T 57 QTc 414 Conclusion SINUS RHYTHM NORMAL ECG Electronically signed by : SANTIAGO DELUNA, 01/24/2024 21:22:43
--- NOTE | 2024-01-24 16:33 | CT_ITS ---
PROCEDURE INFORMATION: Exam: CT Abdomen And Pelvis With Contrast Exam date and time: 01/24/2024 5:02 PM Age: 63 years old Clinical indication: Abdominal pain; Additional info: Ruq pain TECHNIQUE: Imaging protocol: Computed tomography of the abdomen and pelvis with contrast. Radiation optimization: All CT scans at this facility use at least one of these dose optimization techniques: automated exposure control; mA and/or kV adjustment per patient size (includes targeted exams where dose is matched to clinical indication); or iterative reconstruction. Contrast material: ISOVUE; Contrast volume: 75 ml; Contrast route: IV; COMPARISON: CT ABDOMEN PELVIS W CON 03/09/2020 11:13 AM FINDINGS: Lungs: Stable 9 mm pulmonary nodule in the right middle lobe. Liver: Normal. No mass. Gallbladder and biliary ducts: Gallbladder is surgically absent. Stable mild dilation of the common bile duct. Pancreas: Normal. No ductal dilation. Spleen: Normal. No splenomegaly. Adrenal glands: Normal. No mass. Kidneys and ureters: Normal. No hydronephrosis. Stomach and bowel: Moderate diverticulosis of the distal colon. No bowel wall thickening or evidence of bowel obstruction. Appendix: The appendix is visualized and appears normal. Intraperitoneal space: Stable mild mesenteric stranding in the upper abdomen in the area of the celiac artery pancreatic head. Mesentery otherwise unremarkable. No free air or free fluid evident. Vasculature: Unremarkable. No abdominal aortic aneurysm. Lymph nodes: Stable mildly prominent bilateral inguinal lymph nodes. Urinary bladder: Unremarkable as visualized. Reproductive: Uterus is surgically absent. No adnexal abnormality. Bones/joints: Moderate degenerative changes throughout the lower spine. No vertebral body compression or acute fracture. Moderate dextroscoliosis of the thoracolumbar spine. Soft tissues: Unremarkable. IMPRESSION: Stable chronic findings as noted. No acute abnormality evident.
[2024-01-24 16:37] LABS: Basophils # 0.1 K/mm3 (0-0.2); Basophils % 0.9 % (0.1-2.0); Eosinophils # 0.2 K/mm3 (0.0-0.4); Eosinophils % 3.6 % (0.1-12.0); Hematocrit 44.4 % (37.0-47.0); Lymphocytes # 1.9 K/mm3 (0.7-4.5); Lymphocytes % 28.1 % (10-50); Mean Corpuscular HGB Conc 31.5 g/dL (31.8-35.4); Mean Corpuscular Volume 85.8 fl (81-99); Mean Platelet Volume 8.1 fl (7.4-10.4); Monocytes # 0.3 K/mm3 (0.1-1.0); Monocytes % 3.9 % (1.7-9.3); Neutrophils # 4.2 K/mm3 (1.8-7.8); Neutrophils % 63.5 % (37.0-80.0); Platelet Count 246 K/mm3 (142-424); Red Blood Count 5.17 M/mm3 (4.20-5.40); Red Cell Distribution Width 15.1 % (11.5-17.5); White Blood Count 6.7 K/mm3 (4.8-10.8)
[2024-01-24] MEDS: ONDANSETRON 4MG/2ML VIAL 4 MG IV (16:38)
[2024-01-24] MEDS: ACETAMINOPHEN 1,000MG/100ML VIAL 1000 MG IV (16:38)
[2024-01-24] MEDS: KETOROLAC 30MG/ML VIAL 15 MG IV (16:38)
[2024-01-24] MEDS: LACTATED RINGERS 1000ML 1,000 ML 999 ML IV (16:39)
[2024-01-24 16:40] LABS: Chloride 108 mmol/L (98-107)
--- NOTE | 2024-01-24 16:40 | HMH.EDGENADL ---
Discharge Plan Disposition Patient Disposition: Home, Self-Care Condition: Good Prescriptions Prescriptions: New ondansetron 4 mg tablet,disintegrating 4 mg PO Q8H PRN (Reason: nausea and vomiting) 4 Days Qty: 12 0RF pantoprazole 40 mg tablet,delayed release (DR/EC) 40 mg PO DAILY Qty: 30 1RF No Action meclizine 25 mg tablet 25 mg PO DAILY PRN (Reason: Nausea) pantoprazole 20 mg tablet,delayed release (DR/EC) 20 mg PO DAILY PRN (Reason: stomach) magnesium Tablet 1 tab PO DAILY latanoprost (PF) 7.5 ML drops 7.5 ml OP DAILY carvedilol 12.5 mg tablet 6.25 mg PO DAILY Rx Instructions: TAKE 1 TABLET BY MOUTH TWICE DAILY WITH A MEAL /FOOD Referrals Follow up/Referrals: Js Marie MD [Primary Care Provider] - See instructions Activity Restrictions/Add. Instructions Additional Instructions/Restrictions: You were evaluated in the emergency department today. You have stable inflammation in your upper abdomen adjacent to lymph nodes in your abdomen, for which I just recommend close follow-up with primary care and monitoring. Take Tylenol at home. hotel service supervisor your prescription for Zofran and take as needed for nausea and vomiting. I also would recommend that we increase your pantoprazole from 20 mg to 40 mg daily, so I am prescribing this for you. Please follow-up closely with your primary care provider. Return to the emergency department for new or worsening symptoms. Clinical Impressions Clinical Impression: Abdominal pain, Mesenteric adenitis Instructions Patient Instructions: DI for Acute Abdominal Pain Discharge ED Provider: Lynda Vargas General Adult HPI General Chief complaint: Abdominal Pain Stated complaint: R side pain nausea Time Seen by Provider: 01/24/24 16:05 Mode of Arrival: Ambulatory Source of Information: Patient Limitations: No Limitations Description of Symptoms (Recalled from ER Triage Doc. by RN): pt is here today for right sided abd pain that is in the middle area, pt does not have a gall bladder and denies any soa or chest pain. pt denies fever vomiting and diarrhea but does complain of nausea. pt states this has been going for 2-3 days and she has hx of diverticulitis and kidney stones. pt took a sudafed this morning for sinus headache and it has also made her bp elevated. 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 She has had a cholecystectomy in the past remotely. She notes that been bothering her for 2 to 3 days. She is also had nausea, but no vomiting. She states that it kept her up all night last night, prompting her to come in to be evaluated today. She is not been able to eat or drink very much today at all. She does note she has had some sinus congestion, for which she took Sudafed, so her blood pressure is also raised because of this. She initially presented to [facility], who called me for evaluation with concern for severe right upper quadrant abdominal pain and high blood pressures. I had an interactive discussion with the provider there who sent her over for evaluation. Patient denies any changes in bowel movements, urinary symptoms, or other concerns. Related Data Home Medications Medication Instructions Recorded Confirmed latanoprost (PF) 0.005 % eye drops 7.5 ml ophthalmic (eye) DAILY eyes 10/26/20 01/24/24 pantoprazole 20 mg tablet,delayed 20 mg PO DAILY PRN stomach 12/26/21 01/24/24 release magnesium 1 tab PO DAILY 07/30/23 01/24/24 meclizine 25 mg tablet 25 mg PO DAILY PRN Nausea 08/25/23 01/24/24 carvedilol 12.5 mg tablet 6.25 mg PO DAILY 12/17/23 01/24/24 Previous Rx's Medication Instructions Recorded ondansetron 4 mg disintegrating 4 mg PO Q8H PRN nausea and 01/24/24 tablet vomiting 4 days #12 tabs pantoprazole 40 mg tablet,delayed 40 mg PO DAILY #30 tabs 01/24/24 release Allergies Allergy/AdvReac Type Severity Reaction Status Date / Time azithromycin [AZITHROMYCIN] Allergy Unknown Verified 12/17/23 08:16 clarithromycin Allergy Unknown Verified 12/17/23 08:16 [CLARITHROMYCIN] levofloxacin [From LEVAQUIN] Allergy Unknown Verified 12/17/23 08:16 metoprolol AdvReac Wheezing Verified 12/17/23 08:16 sulfamethoxazole AdvReac Verified 12/17/23 08:16 [From Bactrim] trimethoprim [From Bactrim] AdvReac Verified 12/17/23 08:16 [facility] Disclaimer: The information contained in this section may have been updated after the patient was seen, as this information can be updated by other users. 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 CAD in [place] artery Hyperlipidemia Urinary tract infection Kidney stone COPD (chronic obstructive pulmonary disease) Endometriosis History of transient ischemic attack (TIA) Osteoarthritis Osteoporosis Irritable bowel syndrome (IBS) History of gastroesophageal reflux (GERD) Glaucoma History of anemia Epigastric pain Abnormal ECG Palpitations COVID-19 long hauler manifesting chronic palpitations Swelling Dizziness Dyspnea Chest pain Surgical History H/O esophagogastroduodenoscopy History of cholecystectomy History of hysterectomy Family History Other Family history of cancer Family history of myocardial infarction Social History Smoking Status: Never smoker alcohol intake: never substance use type: denies use current occupational status: disabled Travel in the last 8 weeks: None housing: house current occupational exposures/hazards: No caffeine: Yes ROS Obtained: Yes All systems reviewed & no additional complaints except as documented Physical Exam General General appearance: alert and in no apparent distress Head Head exam: atraumatic and normocephalic Eye Eye exam: Present normal appearance, PERRL and EOMI ENT ENT exam: Present normal exam, normal oropharynx, mucous membranes moist and normal external ear exam Neck Neck exam: Present normal inspection, full ROM and trachea midline; Absent tenderness Chest Chest inspection: Present normal inspection and symmetric chest wall rise; Absent tenderness Respiratory Respiratory exam: Present normal lung sounds bilaterally; Absent respiratory distress, wheezes, stridor or accessory muscle use Cardiovascular Cardiovascular exam: Present regular rate and normal rhythm Abdominal Exam Abdominal exam: Present soft and tenderness (Right upper quadrant); Absent distention, guarding, rebound or rigidity Extremities Exam Extremities exam: Present normal inspection, full ROM and normal capillary refill; Absent tenderness or edema Back Exam Back exam: Present normal inspection and full ROM; Absent tenderness Neurological Exam Neurological exam: Present alert, oriented X3, CN II-XII intact and normal gait; Absent motor sensory deficit Psychiatric Psychiatric exam: Present normal affect and normal mood Skin Skin exam: Present warm and dry Medical Decision Making Medical Records Medical records reviewed: Yes I reviewed the patient's medical records. Chalo Inquiry Pt receiving controlled substance: No Vital Signs: 01/24/24 15:35 01/24/24 16:15 01/24/24 16:19 Temperature 99.4 F 98.0 F Temperature Source Oral Oral Pulse Rate 78 Pulse Rate [Left Brachial] 89 92 H Respiratory Rate 20 20 18 Blood Pressure 199/106 H Blood Pressure [Left Arm] 218/113 H 199/105 H Blood Pressure Mean 115 Blood Pressure Mean [Left Arm] 148 136 Blood Pressure Source [Left Arm] Automatic Cuff Blood Pressure Position [Left Arm] Sitting 02 Sat by Pulse Oximetry 94 L 95 95 Oxygen Delivery Method Room Air Room Air 01/24/24 17:32 01/24/24 18:00 01/24/24 18:27 Temperature 98.0 F Temperature Source Pulse Rate 77 71 75 Pulse Rate [Left Brachial] Respiratory Rate 18 18 Blood Pressure 159/88 H 160/81 H 160/81 H Blood Pressure [Left Arm] Blood Pressure Mean 121 107 Blood Pressure Mean [Left Arm] Blood Pressure Source [Left Arm] Blood Pressure Position [Left Arm] 02 Sat by Pulse Oximetry 94 L 93 L Oxygen Delivery Method Room Air Lab Data Lab results reviewed: Yes I reviewed the patient's lab results. Lab Results 01/24/24 15:53: Urine Color Yellow, Urine Appearance Clear, Urine pH 7.5, Ur Specific [place] 1.015, Urine Protein Negative, Urine Glucose (UA) Negative, Urine Ketones Negative, Urine Blood Negative, Urine Nitrate Negative, Urine Bilirubin Negative, Urine Urobilinogen 0.2, Ur Leukocyte Esterase Negative 01/24/24 16:15: WBC 6.7, RBC 5.17, Hgb 14.0, Hct 44.4, MCV 85.8, MCH 27.0, MCHC 31.5 L, RDW 15.1, Plt Count 246, MPV 8.1, Neut % (Auto) 63.5, Lymph % (Auto) 28.1, [place] % (Auto) 3.9, Eos % (Auto) 3.6, Baso % (Auto) 0.9, Neut # (Auto) 4.2, Lymph # (Auto) 1.9, [place] # (Auto) 0.3, Eos # (Auto) 0.2, Baso # (Auto) 0.1, Sodium 140, Potassium 4.3, Chloride 108 H, Carbon Dioxide 28, Anion Gap 8.3, BUN 13, Creatinine 0.80, Estimated Creat Clear 80, Estimated GFR 72, Est GFR ( Amer) 87, Glucose 91, Calcium 9.7, Total Bilirubin 0.8, AST 33, ALT 21, Alkaline Phosphatase 96, Total Protein 7.7, Albumin 4.4, Globulin 3.3 H, Albumin/Globulin Ratio 1.3, Lipase 90 01/24/24 16:15 01/24/24 16:15 Orders (Tests/Meds): ED MEDICATIONS Discontinued Medications Generic Name Dose Route Start Last Admin Trade Name Tadq PRN Reason Stop Dose Admin Acetaminophen 1,000 mg 01/24/24 16:33 01/24/24 16:38 Acetaminophen 1,000mg/100ml Vial IV 01/24/24 16:34 1,000 mg ONCE ONE Administration Lactated Ringer's 1,000 mls @ 999 mls/hr 01/24/24 16:33 01/24/24 16:39 Lactated Ringer's 1000 Ml Bag IV 01/24/24 17:33 999 mls/hr .Q1H1M ONE Administration Iopamidol 75 ml 01/24/24 17:07 01/24/24 17:08 Iopamidol-370 (76%);100ml Bottle IV 01/24/24 17:08 75 ml ONCE ONE Administration Ketorolac Tromethamine 15 mg 01/24/24 16:33 01/24/24 16:38 Ketorolac 30mg/Ml Vial IV 01/24/24 16:34 15 mg ONCE ONE Administration Ondansetron HCl 4 mg 01/24/24 16:33 01/24/24 16:38 Ondansetron 4mg/2ml Vial IV 01/24/24 16:34 4 mg ONCE ONE Administration Pantoprazole Sodium 40 mg 01/24/24 18:12 01/24/24 18:23 Pantoprazole 40mg Tablet PO 01/24/24 18:13 Not Given ONCE ONE Sodium Chloride 10 ml 01/24/24 17:07 01/24/24 17:08 Sodium Chloride 0.9% 10ml Syr (Rad Only) IV 01/24/24 17:08 10 ml ONCE ONE Administration ORDERS Category Date Time Status CT abdomen pelvis w con Stat Cat Scan 01/24/24 16:33 Completed CBC w/Auto Diff [Complete Blood Count Auto Diff] Stat Lab 01/24/24 16:15 Completed CMP [Comprehensive Metabolic Panel] Stat Lab 01/24/24 16:15 Completed Lipase Stat Lab 01/24/24 16:15 Completed ECG Data Tracing #1: I reviewed this ECG and interpreted as documented below: Normal sinus rhythm with a ventricular rate of [address] changes concerning for ischemia. Normal axis and intervals. ECG initial impression date: 01/24/24 ECG initial impression time: 16:43 Medical Decision Narrative: In summary, this patient is a 63-year-old female presenting to the Emergency Department for evaluation of abdominal pain, nausea, and poor oral intake for 2 to 3 days. Differential diagnoses considered include but are not limited to gastroenteritis, colitis, diverticulitis, bowel obstruction, pancreatitis, pyelonephritis. Ruling out the most morbid conditions drove assessment. It should be noted patient's history includes hypertension which is not at goal therapy. This complicates all aspects of care by increasing patient's risk for morbidity. I reviewed patient's past medical records and noted urinalysis from [facility] which did not demonstrate any concerns for urinary tract infection. On exam, the patient is well-appearing with right upper quadrant tenderness but otherwise benign abdominal exam. She is hypertensive with systolics in the 190s on exam, but she states this is because she took her for Sudafed. She reports compliance with her home blood pressure medications. Workup included CBC, CMP, lipase, EKG, and CT abdomen and pelvis with IV contrast. She was given a bolus of IV fluids as well as IV acetaminophen, Zofran, and Toradol for symptomatic improvement. I independently interpreted CT scan prior to the radiologist read and noted no obvious acute bowel obstruction or other pathology. Please see their read for final interpretation. Labs were obtained that demonstrated no acutely concerning abnormalities. On reassessment, patient had good improvement after administration of interventions above. She is resting comfortably with improved blood pressure with pain control. She notes she thinks this could be related to GERD, and I did increase her pantoprazole from 20 mg to 40 mg. Given reassuring workup and exam otherwise, I feel that she is appropriate for discharge home with close outpatient follow-up. Will have her follow-up closely with her primary care provider. Strict return precautions were given. Critical Care Critical Care Time Critical Care Time: No
[2024-01-24 16:41] LABS: Potassium 4.3 mmoL/L (3.5-5.1); Sodium 140 mmol/L (136-145)
[2024-01-24 16:43] LABS: Alanine Aminotransferase 21 U/L (12-78); Alkaline Phosphatase 96 U/L (38-126); Aspartate Amino Transferase 33 U/L (14-36); Bilirubin,Total 0.8 mg/dl (0.2-1.3); Blood Urea Nitrogen 13 mg/dl (7-17); Creatinine Clearance Estimated 80 mL/min (50-200); Estimated Glomerular Filt Rate 72 ml/min (>60); GFR (African American) 87 ML/MIN (>60)
[2024-01-24 16:44] LABS: Albumin Level 4.4 g/dl (3.5-5.0); Albumin/Globulin Ratio 1.3 (1.1-1.8); Anion Gap 8.3 mEq/L (5-15); Calcium 9.7 mg/dl (8.4-10.2); Carbon Dioxide 28 mmol/L (22.0-30.0); Globulin 3.3 g/dL (1.3-3.2); Glucose 91 mg/dl (74-100); Lipase 90 U/L (23-300); Total Protein,Serum 7.7 g/dl (6.3-8.2)
--- NOTE | 2024-01-24 16:56 | PC.NURSE ---
PT TO CT
[2024-01-24] MEDS: IOPAMIDOL-370 (76%);100ML BOTTLE 75 ML IV (17:08)
[2024-01-24] MEDS: SODIUM CHLORIDE 0.9% 10ML SYR (RAD ONLY) 10 ML IV (17:08)
[2024-01-24 17:32] VITALS: BP 159/88; PULSE 77; RESP 18; O2SAT 94
[2024-01-24 18:00] VITALS: BP 160/81; PULSE 71; O2SAT 93
[2024-01-24 18:27] VITALS: BP 160/81; PULSE 75; RESP 18; TEMP 36.7; O2SAT 95
== END 2024-01-24 18:29 | disposition home or self-care (01) ==
LOC: UTC 15:26 → ER 16:14
PROVIDERS: Nurse Practitioner Family; Emergency Provider Emergency Medicine; PCP Internal Medicine Adolescent Medicine
DX: R10.11 Right upper quadrant pain (principal); I88.0 Nonspecific mesenteric lymphadenitis; I11.9 Hypertensive heart disease without heart failure; R11.0 Nausea; K21.9 Gastro-esophageal reflux disease without esophagitis; E78.5 Hyperlipidemia, unspecified; I25.119 Atherosclerotic heart disease of native coronary artery with unspecified angina pectoris
CPT/HCPCS: 74177; 80053; 81003; 83690; 85025; 93005; 96361; 96374; 96375; 99285; J0131; J1885; J2405; J7120; Q9967

== ENCOUNTER 2024-02-09 10:11 | Outpatient (CLI) | payer MEDICARE, MEDICAID, SELFPAY ==
--- NOTE | 2024-02-09 | XR_ITS ---
FINAL REPORT CLINICAL HISTORY: PAIN IN RIGHT AND LEFT FOOT FINDINGS: RIGHT FOOT 3 views of the right foot were obtained. There is no acute fracture or dislocation. Visualized joint spaces are normally aligned. There is mild multijoint degenerative disease, most pronounced at the first MTP joint. There is a prominent inferior calcaneal spur noted. Soft tissues are unremarkable. IMPRESSION: No acute bony abnormality. Reviewed, Interpreted and Dictated by Chuyita Carpenter MD Transcribed by Akosua Sharp Authenticated and [facility]
--- NOTE | 2024-02-09 | XR_ITS ---
FINAL REPORT CLINICAL HISTORY: pain FINDINGS: LEFT FOOT Three views of the left foot demonstrate no acute fracture or dislocation. The visualized joint spaces are normally aligned. There is mild multijoint degenerative disease. The soft tissues are unremarkable. IMPRESSION: No acute bony abnormality. Reviewed, Interpreted and Dictated by Chuyita Carpenter MD Transcribed by Akosua Sharp Authenticated and [facility]
--- OUTSIDE RECORDS SUMMARY | 2024-02-09 10:13 | XMS_ITS ---
Author Organization [facility] Address [address] [place] [address] Care Team Providers Care Manager Of Selection And Assessment Name Role Phone Js Marie Primary Care Provider Kathleen Scruggs Unavailable [phone] Vera Gutierres Unavailable [phone] REASON FOR VISIT unknown Encounters Encounter Location Date Provider Diagnosis [facility] [address] [address] 01/30/2024 Vera Gutierres PLAN OF TREATMENT No Information Progress Notes * Thalia HUIZARDOB: (63 yo F)Acc No.[id number]:01/30/2024 Progress Notes Patient:??Thalia HUIZAR Provider:??Vera Gutierres APRN :1960?Age:63 Y?Sex:Fe male Date:01/30/2024 Address:[address] [id number] Pcp:Js Marie Subjective: * Chief Complaints: * ?1. Unknown. * 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:?? Objective: Assessment: Plan: * Treatment:
--- OUTSIDE RECORDS SUMMARY | 2024-02-09 10:13 | XMS_ITS ---
Author Organization [facility] PE D ANTONIO Address [address] [place] [address] Care Team Providers Care Breast Puller Name Role Phone Js Marie Primary Care Provider Kathleen Scruggs Unavailable [phone] Vera Gutierres Unavailable [phone] ALLERGIES Allergen (clinical drug ingredient) Drug/Non Drug Allergy documented on EMR Reaction Allergy Type Onset Date Status ciprofloxacin Cipro Unknown Drug Allergy Act pushpa Levaquin Unknown Drug Allergy Active meloxicam meloxicam keeps her awake Drug Allergy A ctive REASON FOR REFERRAL Reason Refer to [facility] podiatr y Diagnosis 1 Pain in right foot ( M79.671) Referral Organization [facility] SERGIO GAINES Referring Provider First Name Vera Referring Provider Last Name Nenita Referring Provider Speciality Family Pra ctice General Notes Eulogio Wesley 04:50:25 PM > faxed and they will call pt Referral Priority Routine REASON FOR VISIT rash on abdomen , numbness, feet f/u MEDICATIONS Medication SIG (Take, Route, Frequency, Duration) Notes Start Date End Date Status sucralfate 1 g 1 tab(s) orally 4 ti mes a day (before meals and at bedtime) Active
--- OUTSIDE RECORDS SUMMARY | 2024-02-09 10:13 | XMS_ITS ---
Author Organization [facility] PE D ANTONIO Address [address] [place] [address] Care Team Providers Care Ultrasound Technician Name Role Phone Js Marie Primary Care Provider Kathleen Scruggs Unavailable [phone] Kathleen Moya Unavailable [phone] ALLERGIES Allergen (clinical drug ingredient) Drug/Non Drug Allergy documented on EMR Reaction Allergy Type Onset Date Status ciprofloxacin Cipro Unknown Drug Allergy Act pushpa Levaquin Unknown Drug Allergy Active meloxicam meloxicam keeps her awake Drug Allergy A ctive RESULTS Component Value Reference Range Notes COMPREHENSIVE METABOLIC PANE L ([id number]) Reviewed date:01/30/2024 10:33:21 AM Interpretation: Performing Lab:CB, [facility] [id number] [facility], [facility] Roberto Henderson Notes/Report: NON-FASTING; NON-FASTING; NON-FASTING FASTING:NO FASTING: NO GLUCOSE 94 65-139 mg/dL Non-fasting reference interval UREA NITROGEN (BUN) 13 7-25 mg/dL CREATININE 0.85 0.50-1.05 mg/dL EGFR 76 > OR = 60 mL/min/1.73m2 BUN/CREATININE RATIO SEE NOTE: 6-22 (calc) Not Reported: BUN and Creatinine are within reference range. SODIUM 141 135-146 mmol/L POTASSIUM 4.6 3.5-5.3 mmol/L CHLORIDE 106 98-110 mmol/L CARBON DIOXIDE 28 20-
--- OUTSIDE RECORDS SUMMARY | 2024-02-09 10:14 | XMS_ITS | Continuity of Care Document ---
Author Organization [facility] TáximoTAL Phone Care Team Providers Care Geropsychologist Name Role Phone CHRISTINE ARMENDARIZ Admitting CHRISTINE ARMENDARIZ Primary Attending [phone] CHRISTINE ARMENDARIZ Unavailable FLOR GARCIA Primary Care ALLERGIES AND ADVERSE REACTIONS ALLERGIES AND ADVERSE REACTIONS Code System Allergy Substance Adverse Reaction Date Reaction (Severity) Comment Status Reported By Updated By No Known Allergies [email or web address] on May 22, 2023 6:20:31 PM [facility] TREAT[facility] DISCHARGE MEDICATIONS Status RXNORM Medication Dose Route Frequency Dates Comments U pdated By Patient discharge medication information is not available. PATIENT OPEN ORDERS Code System Description Frequency Occurrences Priority [place] [id number] LOINC XR Abdomen supine and upright ONE TIME 0 Routine February 04, 2024 7:13:00 PM [facility] MARCELLO IGNACIO [id number] on February 04, 2024 7:14:00 PM [facility] SCHEDULED PROCEDURES Code System Description Status Scheduled Date Upd ated By Patient scheduled procedure information is not available. MEDICATIONS HOME MEDICATIONS Status RXNORM NDC Medication Dose Route Frequency Dates Comments Reported By Updated By Drug Treatment Unknown DISCHARGE MEDICATIONS Status RXNORM NDC Medication Dose Route Frequency Dates Comments Physician Updated By No Discharge Medication Info rmation Available
--- OUTSIDE RECORDS SUMMARY | 2024-02-09 10:14 | XMS_ITS | Patient Health Record ---
Author Organization [facility] ANTONIO Address [address] [place] [address] Care Team Providers Care Salesforce Trainer Name Role Phone Js Marie Primary Care Provider Kathleen Scruggs Unavailable [phone] Vera Gutierres Unavailable [phone] Kathleen Moya Unavailable [phone] ALLERGIES Allergen (clinical drug ingredient) Drug/Non Drug Allergy documented on EMR Reaction Allergy Type Onset Date Status ciprofloxacin Cipro Unknown Drug Allergy Act pushpa Levaquin Unknown Drug Allergy Active meloxicam meloxicam keeps her awake Drug Allergy A ctive RESULTS Component Value Reference Range Notes MRI : Shoulder, Right Reviewed date:10/10/2023 09:23:30 AM Interpretation: Performing Lab: Notes/Report: CT Scan : Chest, Lung Cancer Screening Reviewed date:07/10/2023 04:01:31 PM Interpretation: Performing Lab: Notes/Report: CT Scan : Chest, Lung Cancer Screening Reviewed date:07/10/2023 04:01:31 PM Interpretation: Performing Lab: Notes/Report: COMPREHENSIVE METABOLIC PANE L ([id number]) Reviewed date:10/27/2023 02:29:15 PM Interpretation: Performing Lab:[facility], [facility] [address], [place] Roberto Henderson Notes/Report: NON-FASTING; NON-FASTING; NON-FASTING; NON-FASTING GLUCOSE 92 65-99 mg/dL Fasting reference interval UREA NITROGEN (BUN) 21
--- OUTSIDE RECORDS SUMMARY | 2024-02-09 10:14 | XMS_ITS | Continuity of Care Document ---
Author Organization [facility] Phone Care Team Providers Care Broadcast Operations Technician Name Role Phone CHRISTINE ARMENDARIZ Admitting CHRISTINE ARMENDARIZ Primary Attending CHRISTINE ARMENDARIZ Unavailable FLOR GARCIA Primary Care ALLERGIES AND ADVERSE REACTIONS ALLERGIES AND ADVERSE REACTIONS Code System Allergy Substance Adverse Reaction Date Reaction (Severity) Comment Status Reported By Updated By No Known Allergies [email or web address] on May 22, 2023 6:20:31 PM [facility] RESULTS Patient: BHUPENDRA BASURTO Date of : 1960 LABORATORY RESULTS Information is not available LABORATORY NARRATIVE RESULTS Information is not available RADIOLOGY RESULTS ORDER 100: ABD [address] (LOINC: 60814-9) ORDER DATE: February 04, 2024 7:14:00 PM [facility] PERFORMING LAB: [address] [id number] Final Result Date: February 04, 2024 8:21:15 PM [address] [place] [address] Name: SB HUIZAR Exam Date: 02/04/2024 : 1960 Age 63 years Gender: F Physician: CHRISTINE ARMENDARIZ Facility: [facility] Facility HSV: Outpatient Exam: ABD 2 V. FLAT ERECT TWO VIEW ABDOMEN SERIES: HISTORY: Right upper quadrant pain for one month COMPARISON: None Flat and erect views of the abdomen demonstrate a nonobstructive bowel gas pattern. There is no free air. Status post cholecystectomy. There is moderate dextroscoliosis of the spine. IMPRESSION: No acute process. Images were reviewed, interpreted and dictated by Rg Henry
== END 2024-02-09 23:59 | disposition home or self-care (01) ==
LOC: RAD 10:12
PROVIDERS: PCP Internal Medicine Adolescent Medicine; Visit Provider Nurse Practitioner Family
DX: M79.671 Pain in right foot (principal); M79.672 Pain in left foot
CPT/HCPCS: 73630

== ENCOUNTER 2024-05-13 08:45 | Outpatient (CLI) | payer MEDICARE, MEDICAID, SELFPAY ==
--- OUTSIDE RECORDS SUMMARY | 2024-05-13 08:49 | XMS_ITS ---
Author Organization [facility] PE D [facility] Address [address] [place] [address] Care Team Providers Care Air Control Electronics Operator Name Role Phone Js Marie Primary Care Provider Kathleen Scruggs [phone] REASON FOR VISIT lab order for [facility] Encounters Encounter Location Date Provider Diagnosis [facility] [address] [place], [place] [address] 05/12/2024 Js Marie Hyperglycemia R73.9 ; Vitamin D deficiency E55.9 and Coronary artery disease involving [place] coronary artery of [place] heart without angina pectoris I25.10 Assessments Encounter Date Diagnosis (ICD Code) Assessment Notes Treat ment Notes Treatment Clinical Notes 05/12/2024 Hyperglycemia (ICD-1 0 - R73.9) 05/12/2024 Vitamin D deficiency (ICD-10 - E55.9) 05/12/2024 Coronary artery disease involving [place] coronary artery of [place] heart without angina pectoris (ICD-10 - I25.10) Plan Of Treatment Pending Test Test Name Order Date M-Complete Blood Count Auto Diff 024 M-Comprehensive Metabolic Panel 05/12/20 24 M-Hemoglobin A1C 05/12/2024 M-Lipid Panel 05/12/2024 M-Vitamin B12 05/12/2024 M-Vitamin D 25 Hydroxy 05/12/2024 Next Appt Details Provider Name:Vera Bryant, 05/14/2024 12:45:00 PM, [address], [place], [address], Progress Notes * Thalia HUIZARB: (63 yo F)Acc No.[id number]:05/12/2024 Patient:?Thalia HUIZAR :1960???Age:63 Y???Sex:Female Address:[address] [place] [address] Subjective: * Chief Complaints: * ???lab order for [facility] * 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:? * Surgical History:? * Hospitalization/Major Diagno stic Procedure:? * Medications:? Objective: * Vitals:? * Physical Examination:? Assessment: * Assessment: 1.?Hyperglycemia - R73.9 (Pr imary)???2.?Vitamin D deficiency - E55.9???3.?Coronary artery disease involving [place] coronary artery of [place] heart without angina pectoris - I25.10??? Plan: * Treatment: 2.?Vitamin D deficiency?LAB: M-Complete Blood Count Auto Diff ?LAB: M-Comprehensive Metabolic Panel ?LAB: M-Hemoglobin A1C ?LAB: M-Lipid Panel ?LAB: M-Vitamin B12 ?LAB: M-Vitamin D 25 Hydroxy 3.?Coronary artery disease i nvolving [place] coronary artery of [place] heart without angina pectoris?LAB: M-Complete Blood Count Auto Diff ?LAB: M-Comprehensive Metabolic Panel ?LAB: M-Hemoglobin A1C ?LAB: M-Lipid Panel ?LAB: M-Vitamin B12 ?LAB: M-Vitamin D 25 Hydroxy * Procedure Codes:? * true * Date:? Generated for Otto kramer/Cruzito/eTransmitting on:?05/13/2024 08:49 AM EDT
--- OUTSIDE RECORDS SUMMARY | 2024-05-13 08:50 | XMS_ITS ---
Author Organization [facility] Address [address] [place] [address] Care Team Providers Care Data Services Developer Name Role Phone Js Marie Primary Care Provider [phone] Kathleen Scruggs Unavailable [phone] Vera Gutierres Unavailable [phone] REASON FOR VISIT unknown Encounters Encounter Location Date Provider Diagnosis [place] [facility] [address] [address] 01/30/2024 Vera Gutierres Plan Of Treatment Next Appt Details Provider Name:Vera Bryant, 05/14/2024 12:45:00 PM, [address] [place] [address], [address], Progress Notes * Thalia HUIZARDOB: (63 yo F)Acc No.[id number]:01/30/2024 Progress Notes Patient:?Thalia HUIZAR Provider:?Vera Gutierres APRN :1960???Age:63 Y???Sex:Female D ate:01/30/2024 Address:[place] Pcp:Js Marie Subjective: * Chief Complaints: * ???1. Unknown. * 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:? Objective: * Vitals:? Assessment: Plan: * Treatment: * * Electronic signature of Sabino Gutierres APRN on 05/13/2024 at 08:49 AM EDT Sign off status: Pending * Provider:Karen Gutierres APRN Date: ?01/30/2024 Generated for Otto kramer/Cruzito/Elena on:?05/13/2024 08:49 AM EDT
--- OUTSIDE RECORDS SUMMARY | 2024-05-13 08:50 | XMS_ITS | Patient Health Record ---
Author Organization [facility] Address [address] [place] [address] Care Team Providers Care Personal Lines Agent Name Role Phone Js Marie Primary Care Provider Kathleen Scruggs Unavailable [phone] Vera Gutierres Unavailable [phone] Kathleen Moya Unavailable [phone] Allergies Allergen (clinical drug ingredient) Drug/Non Drug Allergy documented on EMR Reaction Allergy Type Onset Date Status ciprofloxacin Cipro Unknown Drug Allergy Act pushpa Levaquin Unknown Drug Allergy Active meloxicam meloxicam keeps her awake Drug Allergy A ctive Medications Medication SIG (Take, Route, Frequency, Duration) Notes Start Date End Date Status sucralfate 1 g 1 tab(s) orally 4 ti mes a day (before meals and at bedtime) Active latanoprost ophthalmic 0.005% 1 gtt in each eye once a day (in the evening) Active Cetirizine Hydrochloride 10MG 1 tab(s) orally once a day for 30 prn Active fluticasone nasal 50 mcg/inh 1 spray(s) in each nostril once a day for 30 day(s) 04/12/2022 Active Meclizine Hydrochloride 25 mg 1 tab(s) orally 2 times a day as needed for vertigo for 30 days 12/13/2021 Active pantoprazole 40 mg 1 tab(s) orally once a day for 90 days Active Diclofenac Sodium Topical 1% as directed applied topically 4 times a day prn 04/28/2023 Active famotidine 40 mg 1 tab(s) orally once a day (at bedtime) for 30 days 01/29/2024 Active valACYclovir 1 g 1 tab(s) orally 3 ti mes a day for 7 days 02/06/2024 Active gabapentin 100 mg 1 cap(s) orally 3 times a day for 7 days As needed 02/06/2024 Active carvedilol 6.25 mg 1 tab(s) orally 2 ti mes a day for 90 days Active Problems Problem Type SNOMED Code ICD Code Onset Dates Problem Status W/U Status Risk Notes Problem 081238151 COPD with exacerbation (J44.1) Active confirmed Problem 95971840 Anxiety (F41.9) Active confirmed Problem 94864979 Vitamin D deficiency (E55.9) Active confirmed Problem 81054950 Hyperglycemia (R73.9) Active confirmed Problem 229951700764545 Rotator cuff syndrome of right shoulder (M75.101) Active confirmed Problem 28850327 Heart palpitations (R00.2) Active confirmed Problem 53701082 Chronic allergic rhinitis (J30.9) Active confirmed Problem 167042069 BMI 34.0-34.9,adult (Z68.34) Active confirmed Problem 002342680 BMI 33.0-33.9,adult (Z68.33) Active confirmed Problem 97874476 Other chronic pain (G89.29) Active confirmed Problem 833714185 COPD (chronic obstructive pulmonary disease) with chronic bronchitis (J44.9) Active confirmed Problem 807783729 BMI 32.0-32.9,adult (Z68.32) Active confirmed Problem 98895761 Coronary artery disease involving [place] coronary artery of [place] heart without angina pectoris (I25.10) Active confirmed Problem 20911352234092930 Asthma-COPD overlap syndrome (J44.9) Active confirmed Problem 7962214 Benign essential HTN (I10) Active confirmed Problem 85375603 Dysphagia, unspecified type (R13.10) Active confirmed Problem 43912865528423 Chronic vertigo (R42) Active confirmed Problem 298884257 Lung nodule seen on imaging study (R91.1) Active confirmed Problem 889249463 Chronic GERD (K21.9) Active confirmed Problem 172832432682123 History of gastritis (Z87.19) Active confirmed Problem 7543821130747 History of tobacco use (Z87.891) Active confirmed Vital Signs Heart Rate 82 /min 02/06/2024 Temperature 98 degrees Fahrenheit 02/06/2024 Blood pressure diastolic 82 mm Hg 02/06/2024 Height 5 ft 4 in in 02/06/2024 Blood pressure systolic 125 mm Hg 02/06/2024 Weight 203 lbs 02/06/2024 BMI 34.84 kg/m2 02/06/2024 Encounters Encounter Location Date Provider Diagnosis [place] [facility] [address] [address] 06/13/2023 Vera McNees Chronic vertigo R42 ; [...] BMI 34.0-34.9,adult Z68.34 and Heart palpitations R00.2 [place] [place] [facility] [place] [address] [address] 10/24/2023 Vera McNees Dizziness R42 ; Coronary artery disease involving [place] coronary artery of [place] heart without angina pectoris I25.10 ; Skin lesion L98.9 and Muscle cramps R25.2 [place] [facility] [address] [address] 10/31/2023 Vera McNees Plantar fasciitis, bilateral M72.2 and Benign essential HTN I10 [place] [facility] [address] [address] 01/29/2024 Kathleen Moya Generalized abdomina l pain R10.84 [place] [place] [address] [address] 02/06/2024 Vera McNees Pain in right foot M79.671 ; Herpes zoster without complication B02.9 and Pain in left foot M79.672 [place] [address] [place] [address] 06/16/2023 Vera McNees [place] [address] [place] [address] 07/04/2023 Vera McNees [place] [address] [facility] [address] [place] [address] 07/18/2023 Js Marie [place] [place] [facility] [address] [facility] [address] [place], [place] [address] 09/26/2023 Vera McNeevette Rotator cuff syndrom e of right shoulder M75.101 [place] [address] [facility] [address] [place], [place] [address] 10/31/2023 Vera McNees [place] [address] [facility] [address] [place], [place] [address] 10/31/2023 Vera McNeevette Coronary artery disease involving [place] coronary artery of [place] heart without angina pectoris I25.10 [place] [place] [facility] [address] [facility] [address] [place] [address] 05/12/2024 Js Marie Hyperglycemia R73.9 ; Vitamin D deficiency E55.9 and Coronary artery disease involving [place] coronary artery of [place] heart without angina pectoris I25.10 Assessments Encounter Date Diagnosis (ICD Code) Assessment Notes Treat ment Notes Treatment Clinical Notes 06/13/2023 Encounter for Medicare annual wellness exam (ICD-10 - Z00.00) C-scope UTD. Routine labs drawn today. Due for mammogram, will arrange. Declines flu and Tdap 06/13/2023 Chronic vertigo (ICD-10 - R42) At baseline on PRN meclizine 09/26/2023 Rotator cuff syndrome of right shoulder (ICD-10 - M75.101) 10/24/2023 Dizziness (ICD-10 - R42) 10/31/2023 Benign essential HTN (ICD-10 - I10) [...] into plantar fascia discussed. Voltaren samples given 10/31/2023 Coronary artery disease involving [place] coronary artery of [place] heart without angina pectoris (ICD-10 - I25.10) 01/29/2024 Generalized abdominal pain (ICD-10 - R10.84) No acute findings on CT abd/pelvis in ED. History of reflux and gastritis so have added Famotidine to take at night to help her nocturnal symptoms. Also discussed to take 1 teaspoon Metamucil bid and drink water to stay hydrated. Counseled to not drink her coffee on an empty stomach and counseled on GERD diet. Referral placed to GI. Reviewed s/s warranting urgent evaluation in the ED. I personally will review labs once final. Follow-up PRN. Of note, will attribute HTN to pain today. Discussed to not take Sudafed and keep Cardiolgoy follow-up for BP management. No focal deficits while in clinic. Patient and daughter voice understanding and agree with the plan of care above. 02/06/2024 Pain in right foot (ICD-10 - M79.671) Continue stretches, rest, ice, elevation, and supportive shoes, order for xrays given. Refer to podiatry 02/06/2024 Herpes zoster without complication (ICD-10 - B02.9) Discussed herpes zoster, etiology and expected course. Start antiviral as listed above. Gabapentin PRN for pain. Discussed s/s of dissemination and worsening condition that warrant FU. Advised that if symptoms do not improve or pain worsens can refer to pain management for further treatment 05/12/2024 Vitamin D deficiency (ICD-10 - E55.9) 05/12/2024 Hyperglycemia (ICD-10 - R73.9) 10/24/2023 Coronary artery disease involving [place] coronary artery of [place] heart without angina pectoris (ICD-10 - I25.10) Heart cath report and cardiology note reviewed. Dizziness likely related to combination of beta juve and vertigo. Cut BB dose in half as above. Will check labs today and FU in 1 week. Return precautions discussed 05/12/2024 Coronary artery disease involving [place] coronary artery of [place] heart without angina pectoris (ICD-10 - I25.10) 02/06/2024 Pain in left foot (ICD-10 - M79.672) 10/24/2023 Skin lesion (ICD-10 - L98.9) 06/13/2023 Asthma-COPD overlap syndrome (ICD-10 - J44.9) SOA at baseline. Due for repeat low dose CT chest, will arrange 06/13/2023 Hyperglycemia (ICD-10 - R73.9) Prediabetes on previous labs. Discussed diabetic diet, weight loss, increasing activity. Will check a1c and treat as indicated 10/24/2023 Muscle cramps (ICD-10 - R25.2) Likely related to statin, will check mag level and re-evaluate at FU 06/13/2023 Lung nodule seen on imaging study [...] FU with cardiology to discuss event recorder Plan Of Treatment Pending Test Test Name Order Date X [...] Lateral 02/29/2020 M-Complete Blood Count Auto Diff 019 M-Complete Blood Count Auto Diff 02/25/2 021 M-Complete Blood Count Auto Diff 024 M-Comprehensive Metabolic Panel 05/12/20 M-Comprehensive Metabolic Panel 09/07/19 M-Basic Metabolic Panel 11/30/2018 M-Hemoglobin A1C 05/12/2024 M-Lipid Panel 05/12/2024 M-Lipid Panel 09/07/2020 M-Vitamin B12 06/12/2022 M-Vitamin B12 05/12/2024 M-Vitamin D 25 Hydroxy 05/12/2024 M-Vitamin D 25 Hydroxy 06/12/2022 M-Immunoglobulin E, Total 11/30/2018 M-Sputum Culture & Gram Stain 10/21/2018 M-COVID PCR SINGLE RAPID 02/29/2020 Next Appt Details Provider Name:Vera Currancordelia Bryant, 05/14/2024 12:45:00 PM, [address] [place] [address], [address], Insurance Providers Payer Name Payer Address Payer Phone Subscriber Number Group Number Insured Name Patient Relationship to Insured Coverage Start Date Coverage End Date [employer] DUAL [address] [address] [place] [address] [id number] Thalia Bourgeois Self - patient is the insured Medications Administered Medication Instructions Date of Administration Dosage Notes Ceftriaxone 500 10/22/2018 500 mg Dexamethasone 4mg Injection 04/28/2023 4 mg Medical (General) History 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 History ICD Code hypertension Fibromyalgia [...]
--- OUTSIDE RECORDS SUMMARY | 2024-05-13 08:50 | XMS_ITS ---
[facility] Address [address] [place] [address] Care Team Providers Care Winch Stripper Name Role Phone Js Marie Primary Care Provider Kathleen Scruggs Unavailable [phone] Vera Gutierres Unavailable [phone] Allergies Allergen (clinical drug ingredient) Drug/Non Drug Allergy documented on EMR Reaction Allergy Type Onset Date Status ciprofloxacin Cipro Unknown Drug Allergy Act pushpa Levaquin Unknown Drug Allergy Active meloxicam meloxicam keeps her awake Drug Allergy A ctive Results Component Value Reference Range Notes X ray : Foot, Left Reviewed date:02/10/2024 01:49:24 PM Interpretation: Performing Lab: Notes/Report: X ray : Foot, Right Reviewed date:02/10/2024 12:59:02 PM Interpretation: Performing Lab: Notes/Report: Reason For Referral Reason Refer to [facility] podiatr y Diagnosis 1 Pain in right foot ( M79.671) Referral Organization [facility] SERGIO GAINES Referring Provider First Name Vera Referring Provider Last Name Nenita Referring Provider Speciality Family Pra ctice General Notes Eulogio Wesley 04:50:25 PM > faxed and they will call ptMaryjane Jenci D 02/09/2024 11:04:49 AM > LVM Referral Priority Routine REASON FOR VISIT rash on abdomen , numbness, feet f/u Medications Medication SIG (Take, Route, Frequency, Duration) Notes Start Date End Date Status sucralfate 1 g 1 tab(s) orally 4 ti mes a day (before meals and at bedtime) Active carvedilol 6.25 mg 1 tab(s) orally 2 ti mes a day for 90 days Active famotidine 40 mg 1 tab(s) orally once a day (at bedtime) for 30 days 01/29/2024 Active valACYclovir 1 g 1 tab(s) orally 3 ti mes a day for 7 days 02/06/2024 Active gabapentin 100 mg 1 cap(s) orally 3 times a day for 7 days As needed 02/06/2024 Active Cetirizine Hydrochloride 10MG 1 tab(s) orally [...] 4 times a day prn 04/28/2023 Active latanoprost ophthalmic 0.005% 1 gtt in each eye once a day (in the evening) Active Vital Signs Temperature 98 degrees Fahrenheit 02/06/2024 Heart Rate 82 /min 02/06/2024 Blood pressure systolic 125 mm Hg 02/06/20 24 Blood pressure diastolic 82 mm Hg 024 Height 5 ft 4 in in 02/06/2024 Weight 203 lbs 02/06/2024 BMI 34.84 kg/m2 02/06/2024 Encounters Encounter Location Date Provider Diagnosis [address] [address] 02/06/2024 [facility] Pain in right foot M79.671 ; Herpes zoster without complication B02.9 and Pain in left foot M79.672 Assessments Encounter Date Diagnosis (ICD Code) Assessment Notes Treatment Notes Treatment Clinical Notes 02/06/2024 Pain in right foot (ICD-10 - [...] refer to pain management for further treatment 02/06/2024 Pain in left foot (ICD-10 - M79.672) Plan Of Treatment Medication Medication Name Sig Start Date Stop Date Notes valACYclovir 1 g 1 tab(s) orally 3 times a day for 7 days 02/06/2024 gabapentin 100 mg 1 cap(s) orally 3 times a day for 7 days 02/06/2024 Treatment Notes Assessment Notes Pain in right foot Continue stretches, rest, ice, elevation, and supportive shoes, order for xrays given. Refer to podiatry Herpes zoster without complication Discu ssed herpes zoster, etiology and expected course. Start antiviral as listed above. Gabapentin PRN for pain. Discussed s/s of dissemination and worsening condition that warrant FU. Advised that if symptoms do not improve or pain worsens can refer to pain management for further treatment Referrals Referral Date Details 02/06/2024 02/06/2024, Refer to [facility] podiatry Next Appt Details Follow Up: prn, Reason: Provider Name:Vera Bryant, 05/14/2024 12:45:00 PM, [address], [address], Progress Notes * Thalia HUIZARDOB: (63 yo F)Acc No.[id number]:02/06/2024 Progress Notes Patient:?Thalia HUIZAR Provider:?Vera Gutierres, GIFTED TEACHER :1960???Age:63 Y???Sex:Female D ate:02/06/2024 Address:[address] [place] [address] [id number] Pcp:Js Marie Subjective: * Chief Complaints: * ???1. Rash on abdomen , numb ness. 2. Feet f/u. * HPI: ???gen:? 63-year-old female presents with right on right upper to mid-abdomen. Reports onset of pain is this region approx 2 weeks ago, radiated around side to back. Did not cross midline. Seen in ED with unremarkable CT. Started on GERD meds and sent to GI who started sucralfate. Rash appeared a couple of days ago. Itching, burning, numbness/tingling above rash, pain is better, intermittent and radiates around side to back. Continues to have bilateral heel pain. Treated with topical NSAIDs, stretches, ice, supportive shoes for plantar fascitis, now pain is spread to the entire heel. * ROS:?RESPIRATORY:?no?Shortness of breath.?no?Cough.?CONSTITUTIONAL:?no?Loss of appetite.?no?Fever.?DERMATOLOGY:?Rash?yes.?GASTROENTEROLOGY:?no?Nausea.?no?Heartburn.?no?Vomiting.?Abdominal pain?yes.?no?Diarrhea.?no?Constipation.?NEUROLOGY:?Tingling numbness?yes.? * 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:?Hypertensio n, Fibromyalgia, Glaucoma, Tremors, Mini strokes, Colonoscopy 11/01 with tubular adenomas, asthma/COPD with past tobacco use, chest pain syndrome with negative heart catheter in April 2015, normal EF, normal coronaries - normal myoview 09/06 - But left heart cath done with mild nonocclusive disease 10/04, EGD November 2018 with Schatzki's ring, status post dilatation and bile acid reflux - repeated 11/01 with similar findings. * Surgical History:?Choelcyste alejandro 2011, Total hysterectomy 2008, Breast biopsies (bilateral) , Heart cath-clear 2015, heart cath . * Family History:?Father: dece ased, diabetes, [place].?Mother: alive, Dementia.?Paternal Grand Father: , diabetes.?Paternal Grand Mother: , diabetes, cancer.?Maternal Grand Father: , Heart disease.?Maternal Grand Mother: , Heart disease.?Paternal uncle: alive, Heart disease.?Paternal aunt: , [place].?Maternal uncle: alive, heart disease. Maternal aunt: alive, 2 - lung cancer.?Siblings: alive, diabetes.?Children: alive.?2 brother(s) , 3 sister(s) . 2 daughter(s) - healthy. .? * Medications:?Taking sucralfa te 1 g tablet 1 tab(s) orally 4 times a day (before meals and at bedtime) , Taking latanoprost ophthalmic 0.005% solution 1 gtt in each eye once a day (in the evening) , Taking Cetirizine Hydrochloride 10MG tablet 1 tab(s) orally once a day , Notes to Pharmacist: prn, Taking fluticasone nasal 50 mcg/inh spray 1 spray(s) in each nostril once a day , Taking Meclizine Hydrochloride 25 mg tablet 1 tab(s) orally 2 times a day as needed for vertigo , Taking pantoprazole 40 mg delayed release tablet 1 tab(s) orally once a day , Taking Diclofenac Sodium Topical 1% gel as directed applied topically 4 times a day , Notes to Pharmacist: prn, Taking carvedilol 6.25 mg tablet 1 tab(s) orally 2 times a day , Taking famotidine 40 mg tablet 1 tab(s) orally once a day (at bedtime) , Medication List reviewed and reconciled with the patient * Allergies:?meloxicam: keeps her awake, Levaquin, Cipro. Objective: * Vitals:?Nurse: cristo, Pain: 3, Temp: 98, RR: 20, HR: 82, BP: 125/82, Ht: 5 ft 4 in, Wt: 203, BMI:34.84. * Examination: ???General Examination: ?General?Pleasant and Cooperative, NAD on RA,.?Chest:?normal shape and expansion.?Heart:?Regular Rate and Rhythm, no murmur, rubs or gallops.?Lungs:?LCTAB, No wheezes, crackles or rhonchi, Good air movement,.?Abdomen:?Soft, NTND, BSNA, No organomegaly or peritoneal signs..?Skin:?erythematous vesicular rash grouped in circular patch on right mid abd.?Extremities:?feet - no swelling, no tenderness, mild arthritic changes.? Assessment: * Assessment: 1.?Herpes zoster without com plication - B02.9 (Primary)?2.?Pain in right foot - M79.671?3.?Pain in left foot - M79.672? Plan: * Treatment: 2.?Pain in right foot?Imaging: X ray : Foot, Right Notes: Continue stretches, rest, ice, elevation, and supportive shoes, order for xrays given. Referto podiatry? Referral To: ?[facility] 3.?Pain in left foot?Imaging: X ray : Foot, Left* Lianna Hernandes 02/10/2024 12: 54:52 PM EDT >Vera Gutierres 02/10/2024 12:57:47 PM EDT > xrays of feet show arthritis and heel spur on right foot, should have appointment with podiatryLeLianna ulrich 02/10/2024 01:46:07 PM EDT > pt informedThis DI was reviewed by Lianna Hernandes on 02/10/2024 at 13:49 PM EDT * * Follow Up:?prn * * Sign off status: Completed true * Provider:?Vera Gutierres APRN Date: ?02/06/2024 Generated for Otto kramer/Cruzito/eTransmitting on:?05/13/2024 08:49 AM EDT History and Physical Notes * Examination Category Sub-Category Detail Notes General Examination Heart: Regular Rate and Rhythm, no murmur, rubs or gallops Lungs: LCTAB, No wheezes, c rackles or rhonchi, Good air movement, Abdomen: Soft, NTND, BSNA, No organomegaly or peritoneal signs. Extremities: feet - no swelling, no tenderness, mild arthritic changes Skin: erythematous vesicul ar rash grouped in circular patch on right mid abd Chest: normal shape and exp ansion General Pleasant and Coopera tive, NAD on RA, Consultation Request Notes Referral Date Referring Provider Referred Provider Not evette 02/06/2024 Vera Gutierres , Refer to [facility] p odiatry
[2024-05-13 09:06] LABS: Basophils # 0.1 K/mm3 (0-0.2); Eosinophils # 0.4 K/mm3 (0.0-0.4); Eosinophils % 6.5 % (0.1-12.0); Hematocrit 42.6 % (37.0-47.0); Hemoglobin 13.9 g/dL (12.2-16.2); Lymphocytes # 1.7 K/mm3 (0.7-4.5); Lymphocytes % 27.2 % (10-50); Mean Corpuscular HGB Conc 32.6 g/dL (31.8-35.4); Mean Corpuscular Hemoglobin 27.3 pg (27.0-31.2); Mean Corpuscular Volume 83.8 fl (81-99); Mean Platelet Volume 7.1 fl (7.4-10.4); Monocytes # 0.3 K/mm3 (0.1-1.0); Monocytes % 4.7 % (1.7-9.3); Neutrophils # 3.8 K/mm3 (1.8-7.8); Neutrophils % 60.6 % (37.0-80.0); Platelet Count 246 K/mm3 (142-424); Red Blood Count 5.09 M/mm3 (4.20-5.40); Red Cell Distribution Width 14.6 % (11.5-17.5); White Blood Count 6.3 K/mm3 (4.8-10.8)
[2024-05-13 09:32] LABS: Alanine Aminotransferase 17 U/L (12-78); Albumin Level 3.8 g/dl (3.5-5.0); Albumin/Globulin Ratio 1.7 (1.1-1.8); Alkaline Phosphatase 91 U/L (38-126); Anion Gap 11.2 mEq/L (5-15); Aspartate Amino Transferase 20 U/L (14-36); Bilirubin,Total 0.6 mg/dl (0.2-1.3); Blood Urea Nitrogen 12 mg/dl (7-17); Calcium 8.9 mg/dl (8.4-10.2); Carbon Dioxide 25 mmol/L (22.0-30.0); Chloride 110 mmol/L (98-107); Cholesterol 186 mg/dl (140-200); Estimated Glomerular Filt Rate 84 ml/min (>60); GFR (African American) 102 ML/MIN (>60); Globulin 2.3 g/dL (1.3-3.2); Glucose 107 mg/dl (74-100); HDL Cholesterol 62 mg/dl (40-60); Potassium 4.2 mmoL/L (3.5-5.1); Sodium 142 mmol/L (136-145); Total Protein,Serum 6.1 g/dl (6.3-8.2); Triglycerides 103 mg/dl (30-150); VLDL Cholesterol 21 mg/dL (0-40)
[2024-05-13 09:43] LABS: Direct LDL Cholesterol 109.76 mg/dL (100-129)
[2024-05-13 09:49] LABS: 25-OH Vitamin D, Total 44.5 ng/mL (30-100)
[2024-05-13 10:21] LABS: Vitamin B12 444 pg/mL (239-931)
[2024-05-13 11:38] LABS: Hemoglobin A1C 5.6 % (4.0-6.0)
== END 2024-05-13 23:59 | disposition home or self-care (01) ==
LOC: LAB 08:48
PROVIDERS: PCP Internal Medicine Adolescent Medicine; Visit Provider Internal Medicine Adolescent Medicine
DX: R73.9 Hyperglycemia, unspecified (principal); I25.10 Atherosclerotic heart disease of native coronary artery without angina pectoris; E55.9 Vitamin D deficiency, unspecified; R20.0 Anesthesia of skin; R20.2 Paresthesia of skin; R20.8 Other disturbances of skin sensation
CPT/HCPCS: 36415; 80053; 80061; 82306; 82607; 83036; 85025

== ENCOUNTER 2024-06-25 08:09 | Outpatient (CLI) | payer MEDICARE, MEDICAID, SELFPAY ==
--- NOTE | 2024-06-25 08:14 | MM_ITS ---
PROCEDURE INFORMATION: Exam: MG Bilateral Screening 3D Mammography Exam date and time: 06/25/2024 8:13 AM Age: 63 years old Clinical indication: Screening examination TECHNIQUE: Imaging protocol: Bilateral Screening tomosynthesis and 2D mammography including computer-aided detection (CAD) when performed. COMPARISON: 1. MG MM DIG SCREENING MAMM BI W/CAD 07/10/2022 2:55 PM 2. MG DMSB DIG MAMM-SCREEN JOEY W/CAD 02/05/2017 4:27 PM FINDINGS: MAMMOGRAPHY: Breast composition: The breasts are heterogeneously dense, which may obscure small masses. Mass: No suspicious masses. Architectural distortion: None. Calcifications: No suspicious calcifications. Asymmetric density: None. Skin thickening: None. Axillary adenopathy: None. IMPRESSION: No mammographic evidence of malignancy. Annual screening is recommended unless otherwise clinically indicated. ASSESSMENT: BI-RADS Category 1: Negative.
--- NOTE | 2024-06-25 08:15 | CT_ITS ---
FINAL REPORT TECHNIQUE: Thin section axial images were obtained from the lung apices to the upper abdomen by computed tomography. Reformatted images were obtained and reviewed. This study was performed with techniques to keep radiation doses al low as reasonably achievable (ALARA). Individualized dose reduction techniques using automated exposure control or adjustment of mA and/or kV according to the patient's size were employed. CLINICAL HISTORY: SCREENING/NODULE ON IMAGING FORMER SMOKER, QUIT 18 YRS AGO, SMOKED 1 PK PER DAY X 30 YRS COPD, CAD HX OF UTERINE CA FAMILY HX OF LUNG CA COMPARISON: 07/04/2023 FINDINGS: CHEST CT LOW DOSE 63-year-old female, quit smoking 18 years ago, [id number] history. CTDI vol (mGy): 2.9 DLP (mGy-cm): 103.16 There is no axillary adenopathy. There is no mediastinal or hilar mass or adenopathy. The heart is normal in size there are mild left coronary artery calcifications. There is no pericardial or pleural effusion. Several calcified granulomas are identified. Lung window images demonstrate a 10 mm right middle lobe nodule best seen on image #59 of series 3, that is stable when compared to the prior exams. No new nodules are identified. Limited images of the upper abdomen are unremarkable. IMPRESSION: Lung-RADS category 1. Recommend 12 month follow up low dose chest CT. Reviewed, Interpreted and Dictated by Evens Beth III, MD Transcribed by Liv Leon Authenticated and [facility]
== END 2024-06-25 23:59 | disposition home or self-care (01) ==
LOC: RAD 08:11
PROVIDERS: PCP Nurse Practitioner Family; Visit Provider Nurse Practitioner Family
DX: Z12.31 Encounter for screening mammogram for malignant neoplasm of breast (principal); R91.1 Solitary pulmonary nodule; Z87.891 Personal history of nicotine dependence
CPT/HCPCS: 71271; 77063; 77067

== ENCOUNTER 2024-07-02 10:01 | Emergency (ER) | payer MEDICARE, MEDICAID, SELFPAY ==
[2024-07-02] VITALS (22 sets, daily range): BP systolic 108–260; BP diastolic 62–137; PULSE 68–100; RESP 12–25; TEMP 36.5–36.7; O2SAT 93–98; BMI 34.4
--- NOTE | 2024-07-02 10:02 | ECG_ITS ---
APPROVED REPORT Exam: Resting ECG HR:93 bpm ECG Measurements Heart Rate 93 AXES MO 113 P 63 QRSd 77 QRS -17 QT 347 T 69 QTc 398 Conclusion SINUS RHYTHM WITH SHORT MO INTERVAL LOW QRS VOLTAGE IN PRECORDIAL LEADS [QRS DEFLECTION < 1.0 mV IN CHEST LEADS] POSSIBLE ANTERIOR MYOCARDIAL INFARCTION , PROBABLY OLD [30 ms Q WAVE IN V3/V4, OR R < 0.2 mV IN V4] BORDERLINE ECG Electronically signed by : CORNELIUS CHAMPION, 07/03/2024 07:24:47
--- NOTE | 2024-07-02 10:17 | XR_ITS ---
FINAL REPORT CLINICAL HISTORY: hypertension, lightheadedness, abd pain COMPARISON: 03/09/2020 FINDINGS: No acute pulmonary opacity is present. There is no evidence of effusion or pneumothorax. Mediastinum is unremarkable. Heart size is normal. IMPRESSION: No acute abnormality. Reviewed, Interpreted and Dictated by Camelia Henry MD Transcribed by Karen Soto Authenticated and . [facility]
[2024-07-02] MEDS: HYDRALAZINE 20MG/ML VIAL 10 MG IV (10:22)
[2024-07-02 10:26] LABS: Basophils % 0.9 % (0.1-2.0); Eosinophils % 3.1 % (0.1-12.0); Hemoglobin 12.9 g/dL (12.2-16.2); Lymphocytes # 2.4 K/mm3 (0.7-4.5); Lymphocytes % 35.3 % (10-50); Mean Corpuscular HGB Conc 31.5 g/dL (31.8-35.4); Mean Corpuscular Hemoglobin 26.7 pg (27.0-31.2); Mean Corpuscular Volume 84.7 fl (81-99); Mean Platelet Volume 9.4 fl (7.4-10.4); Monocytes % 6.3 % (1.7-9.3); Neutrophils # 3.7 K/mm3 (1.8-7.8); Neutrophils % 54.3 % (37.0-80.0); Platelet Count 260 K/mm3 (142-424); Red Blood Count 4.84 M/mm3 (4.20-5.40); Red Cell Distribution Width 14.2 % (11.5-17.5); White Blood Count 6.8 K/mm3 (4.8-10.8)
[2024-07-02 10:27] LABS: Albumin Level 4.2 g/dl (3.5-5.0); Basophils # 0.1 K/mm3 (0-0.2); Chloride 108 mmol/L (98-107); Eosinophils # 0.2 K/mm3 (0.0-0.4); Monocytes # 0.4 K/mm3 (0.1-1.0); Potassium 4.3 mmoL/L (3.5-5.1); Sodium 136 mmol/L (136-145)
[2024-07-02 10:30] LABS: Alanine Aminotransferase 20 U/L (12-78); Albumin/Globulin Ratio 1.5 (1.1-1.8); Alkaline Phosphatase 93 U/L (38-126); Anion Gap 6.3 mEq/L (5-15); Aspartate Amino Transferase 27 U/L (14-36); Bilirubin,Total 0.5 mg/dl (0.2-1.3); Blood Urea Nitrogen 12 mg/dl (7-17); Carbon Dioxide 26 mmol/L (22.0-30.0); Creatinine Clearance Estimated 81 mL/min (50-200); Estimated Glomerular Filt Rate 72 ml/min (>60); GFR (African American) 87 ML/MIN (>60); Globulin 2.8 g/dL (1.3-3.2)
[2024-07-02 10:31] LABS: Calcium 9.2 mg/dl (8.4-10.2); Glucose 94 mg/dl (74-100); Magnesium 2.1 mg/dl (1.6-2.3)
[2024-07-02 10:33] LABS: Activated Partial Thrombo Time 25.9 seconds (22.8-30.6); Prothrombin Time 10.2 seconds (10.1-12.5)
--- NOTE | 2024-07-02 10:37 | ED_ITS ---
Discharge Plan Disposition Patient Disposition: Home, Self-Care Chief Complaint: Chest Pain Prescriptions Prescriptions: New irbesartan 300 mg tablet 300 mg PO DAILY Qty: 30 1RF chlorthalidone 25 mg tablet 25 mg PO DAILY Qty: 30 1RF nifedipine [Procardia XL] 60 mg tablet extended release 24hr 60 mg PO DAILY Qty: 30 1RF hydralazine 25 mg tablet 25 mg PO QID PRN (Reason: Systolic BP (top number) > 180) Qty: 60 1RF Discontinued carvedilol 6.25 mg tablet 6.25 mg PO BID Patient Comments: TAKE 1 TABLET BY MOUTH TWICE DAILY lisinopril 30 mg tablet 30 mg PO DAILY Patient Comments: TAKE 1 TABLET BY MOUTH ONCE DAILY No Action latanoprost 0.005 % drops 1 drp Eye-Both HS Patient Comments: INSTILL 1 DROP INTO EACH EYE AT BEDTIME pantoprazole 40 mg tablet,delayed release (DR/EC) 40 mg PO DAILY Patient Comments: TAKE 1 TABLET BY MOUTH ONCE DAILY Linzess 145 mcg capsule 145 mcg PO DAILY Patient Comments: TAKE 1 CAPSULE BY MOUTH ONCE DAILY FOR 90 DAYS Referrals Follow up/Referrals: Js Marie MD [Primary Care Provider] - See instructions Activity Restrictions/Add. Instructions Additional Instructions/Restrictions: Meds as prescribed, follow-up with cardiology. Call your family doctor to establish care for this visit to the emergency department and schedule follow-up within 48 hours to ensure improvement. If you have any worsening of your condition or any other concerning signs or symptoms, return to the emergency department or your primary care doctor for further evaluation. Clinical Impressions Clinical Impression: Abdominal pain, Hypertension, Back pain, Pancreatitis Print Language Print Language: Bengali Discharge ED Provider: Francis Aguilera [facility] General Chief Complaint: Chest Pain Stated Complaint: CP Time Seen by Provider: 07/02/24 10:04 Mode of Arrival: Family Vehicle Source of Information: Patient Limitations: No Limitations Description of Symptoms (Recalled from ER Triage Doc. by RN): Pt c/o chest pressure, left arm pain, elevated BP, and dizziness. States she follows Dr. Vazquez now for cards and they increased lisinopril from 20 to 30mg. Pt did take this and baby aspirin thia am. Denies any n/v/d. Denies any trouble walking or ambulating. Denies any SOA. History of Present Illness HPI narrative: Please note that above description of symptoms, in this electronic medical record under categorization of recalled from ER triage doctor by RN are reflective of an initial nursing assessment, however, is not reflective of my full history and physical exam that was personally taken and clarified. Consequentially, this preceding description of symptoms, which may include the patient's categorized chief complaint in the EMR, do not reflect my personal clinical impression, and the ultimate description of history of present illness and patient stated complaints should be deferred to this section of the note. Unless stated otherwise or congruent with this section of the note, additional signs, symptoms, or incongruence should be interpreted as inaccurate with my clinical impression. Related Data Home Medications ?Medication ?Instructions ?Recorded ?Confirmed latanoprost 0.005 % eye drops 1 drp Eye-Both HS 07/02/24 07/02/24 linaclotide 145 mcg capsule 145 mcg PO DAILY 07/02/24 07/02/24 (Linzess) pantoprazole 40 mg tablet,delayed 40 mg PO DAILY 07/02/24 07/02/24 release Previous Rx's ?Medication ?Instructions ?Recorded chlorthalidone 25 mg tablet 25 mg PO DAILY #30 tabs 07/02/24 hydralazine 25 mg tablet 25 mg PO QID PRN Systolic BP (top 07/02/24 number) > 180 #60 tabs irbesartan 300 mg tablet 300 mg PO DAILY #30 tabs 07/02/24 nifedipine 60 mg tablet,extended 60 mg PO DAILY #30 tabs 07/02/24 release 24 hr (Procardia XL) Allergies Allergy/AdvReac Type Severity Reaction Status Date / Time azithromycin (AZITHROMYCIN) Allergy Unknown Verified 12/17/23 08:16 clarithromycin Allergy Unknown Verified 12/17/23 08:16 (CLARITHROMYCIN) levofloxacin (From LEVAQUIN) Allergy Unknown Verified 12/17/23 08:16 metoprolol AdvReac Wheezing Verified 12/17/23 08:16 sulfamethoxazole (From AdvReac Verified 12/17/23 08:16 Bactrim) trimethoprim (From Bactrim) AdvReac Verified 12/17/23 08:16 [facility] Disclaimer: The information contained in this section may have been updated after the patient was seen, as this information can be updated by other users. 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 CAD in minto artery Hyperlipidemia Urinary tract infection Kidney stone COPD (chronic obstructive pulmonary disease) Endometriosis History of transient ischemic attack (TIA) Osteoarthritis Osteoporosis Irritable bowel syndrome (IBS) History of gastroesophageal reflux (GERD) Glaucoma History of anemia Epigastric pain Abnormal ECG Palpitations COVID-19 harvinder reed manifesting chronic palpitations Swelling Dizziness Dyspnea Chest pain Surgical History H/O esophagogastroduodenoscopy History of cholecystectomy History of hysterectomy Family History Other Family history of cancer Family history of myocardial infarction Social History Smoking Status: Former smoker tobacco type: cigarettes alcohol intake: never substance use type: denies use current occupational status: disabled Travel in the last 8 weeks: None housing: house current occupational exposures/hazards: No caffeine: Yes Have you lived/traveled outside [place] in past 30 days?: No Contact w/someone who lives/traveled outside US past 30 days?: No Exposure to someone with infectious disease in past 14 days?: No Do you have a fever (greater than 100.4 F or 38 C)?: No Have you tested positive for COVID-19: No Exposed to someone with COVID-19 in past 14 days?: No Do you have a sore throat?: No Do you have a cough?: No Do you have any weakness?: No Do you have any diarrhea?: No Are you experiencing any unusual bleeding?: No Do you have any muscle aches/pain?: No Do you have any abdominal pain?: No Are you experiencing loss of taste or smell?: No Other 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 Have you received the Flu Vaccine for this season: No Have you received the Pneumonia Vaccine: No ROS Obtained: Yes All systems reviewed & no additional complaints except as documented Physical Exam General General appearance: alert and in no apparent distress Neck Neck exam: Present trachea midline Chest Chest inspection: Present normal inspection and symmetric chest wall rise Respiratory Respiratory exam: Present normal lung sounds bilaterally; Absent respiratory distress, wheezes, stridor, accessory muscle use or prolonged expiratory phase Cardiovascular Cardiovascular exam: Present regular rate, normal rhythm, normal heart sounds and other (Pulses equal and symmetric in upper and lower extremities) Extremities Exam Extremities exam: Present edema (minimal 1+ lower extremity edema) Neurological Exam Neurological exam: Present alert, oriented X3 and CN II-XII intact Skin Skin exam: Present warm and dry; Absent cyanosis, diaphoresis or pallor HEART Score HEART Score HEART Score assessment performed?: Yes History (anamnesis): Highly suspicious ECG: Normal Age: >65 years Risk factors: 1-2 risk factors Troponin: </= normal limit HEART Score: 5 Critical Care Critical Care Time Critical Care Time: Yes (cardiac) Attestation: On 07/02/24, the high probability of a clinically significant, sudden or life threatening deterioration of the following system(s) required my full and direct attention, intervention and personal management. The time I documented below is in addition to time spent performing reported procedures but includes the following listed in this critical care notation. Total Time Total Critical Care Time: 45 Medical Decision Making Medical Records Medical records reviewed: Yes I reviewed the patient's medical records. Chalo Inquiry Pt receiving controlled substance: No Chalo was queried for this patient: No Vital Signs Vital Signs: 07/02/24 10:01 07/02/24 10:05 07/02/24 10:15 Temperature 97.7 F Temperature Source Oral Pulse Rate 90 78 Pulse Rate [Right] 93 H Respiratory Rate 23 Blood Pressure 260/137 H 219/129 H Blood Pressure [Left Arm] 230/112 H Blood Pressure Mean 159 159 Blood Pressure Mean [Left Arm] 151 Blood Pressure Source [Left Arm] Automatic Cuff 02 Sat by Pulse Oximetry 97 98 97 Oxygen Delivery Method Room Air Oxygen Flow Rate (LPM) 07/02/24 10:31 07/02/24 10:40 07/02/24 11:00 Temperature Temperature Source Pulse Rate 77 85 87 Pulse Rate [Right] Respiratory Rate 12 23 22 Blood Pressure 187/107 H 181/102 H 201/102 H Blood Pressure [Left Arm] Blood Pressure Mean Blood Pressure Mean [Left Arm] Blood Pressure Source [Left Arm] 02 Sat by Pulse Oximetry 97 95 98 Oxygen Delivery Method Room Air Room Air Oxygen Flow Rate (LPM) 07/02/24 11:10 07/02/24 11:25 07/02/24 11:30 Temperature Temperature Source Pulse Rate 100 H 89 86 Pulse Rate [Right] Respiratory Rate 25 H Blood Pressure 202/108 H 178/92 H 162/100 H Blood Pressure [Left Arm] Blood Pressure Mean Blood Pressure Mean [Left Arm] Blood Pressure Source [Left Arm] 02 Sat by Pulse Oximetry 97 94 L 96 Oxygen Delivery Method Room Air Room Air Oxygen Flow Rate (LPM) 07/02/24 11:40 07/02/24 11:50 07/02/24 11:50 Temperature Temperature Source Pulse Rate 93 H 92 H 86 Pulse Rate [Right] Respiratory Rate 16 14 Blood Pressure 142/74 H 169/77 H 158/89 H Blood Pressure [Left Arm] Blood Pressure Mean Blood Pressure Mean [Left Arm] Blood Pressure Source [Left Arm] 02 Sat by Pulse Oximetry 96 94 L 97 Oxygen Delivery Method Nasal Cannula Room Air Room Air Oxygen Flow Rate (LPM) 2 07/02/24 12:00 07/02/24 12:10 07/02/24 12:20 Temperature Temperature Source Pulse Rate 95 H 79 78 Pulse Rate [Right] Respiratory Rate 20 15 15 Blood Pressure 157/81 H 144/77 H 147/86 H Blood Pressure [Left Arm] Blood Pressure Mean Blood Pressure Mean [Left Arm] Blood Pressure Source [Left Arm] 02 Sat by Pulse Oximetry 94 L 93 L 97 Oxygen Delivery Method Room Air Room Air Room Air Oxygen Flow Rate (LPM) 07/02/24 12:30 07/02/24 13:00 07/02/24 13:15 Temperature Temperature Source Pulse Rate 77 77 84 Pulse Rate [Right] Respiratory Rate 18 23 14 Blood Pressure 130/70 117/64 108/62 L Blood Pressure [Left Arm] Blood Pressure Mean Blood Pressure Mean [Left Arm] Blood Pressure Source [Left Arm] 02 Sat by Pulse Oximetry 95 97 94 L Oxygen Delivery Method Room Air Room Air Room Air Oxygen Flow Rate (LPM) 07/02/24 13:20 07/02/24 13:30 07/02/24 13:36 Temperature Temperature Source Pulse Rate 77 76 84 Pulse Rate [Right] Respiratory Rate 21 18 18 Blood Pressure 116/67 108/65 L 129/73 Blood Pressure [Left Arm] Blood Pressure Mean 91 Blood Pressure Mean [Left Arm] Blood Pressure Source [Left Arm] 02 Sat by Pulse Oximetry 95 96 95 Oxygen Delivery Method Room Air Room Air Room Air Oxygen Flow Rate (LPM) 07/02/24 14:00 Temperature Temperature Source Pulse Rate 85 Pulse Rate [Right] Respiratory Rate 21 Blood Pressure 113/90 Blood Pressure [Left Arm] Blood Pressure Mean Blood Pressure Mean [Left Arm] Blood Pressure Source [Left Arm] 02 Sat by Pulse Oximetry 96 Oxygen Delivery Method Room Air Oxygen Flow Rate (LPM) Lab Data Labs: Lab Results 07/02/24 10:05: WBC 6.8, RBC 4.84, Hgb 12.9, Hct 41.0, MCV 84.7, MCH 26.7 L, M CHC 31.5 L, RDW 14.2, Plt Count 260, MPV 9.4, Neut % (Auto) 54.3, Lymph % (Auto) 35.3, Howell % (Auto) 6.3, Eos % (Auto) 3.1, Baso % (Auto) 0.9, Neut # (Auto) 3.7, Lymph # (Auto) 2.4, Howell # (Auto) 0.4, Eos # (Auto) 0.2, Baso # (Auto) 0.1, PT 10.2, INR 0.90, APTT 25.9, Sodium 136, Potassium 4.3, Chloride 108 H, Carbon Dioxide 26, Anion Gap 6.3, BUN 12, Creatinine 0.80, Estimated Creat Clear 81, Estimated GFR 72, Est GFR ( Amer) 87, Glucose 94, Calcium 9.2, Magnesium 2.1, Total Bilirubin 0.5, AST 27, ALT 20, Alkaline Phosphatase 93, Troponin I < 0.01, NT-Pro-B Natriuret Pep 360 H, Total Protein 7.0, Albumin 4.2, Globulin 2.8, Albumin/Globulin Ratio 1.5, TSH 1.97, Thyroxine (T4) 10.6 07/02/24 10:26: Triglycerides 147, Cholesterol 190, LDL Cholesterol Direct 93.44 L, VLDL Cholesterol 29, HDL Cholesterol 58, Cholesterol/HDL Ratio 3.3, Lipase 104 07/02/24 10:56: Urine Color Yellow, Urine Appearance Clear, Urine pH 7.0, Ur Specific [place] <= 1.005, Urine Protein Negative, Urine Glucose (UA) Negative, Urine Ketones Negative, Urine Blood Negative, Urine Nitrate Negative, Urine Bilirubin Negative, Urine Urobilinogen 0.2, Ur Leukocyte Esterase Negative, Urine RBC None, Urine WBC None, Ur Squamous Epith Cells Occasional, Urine Bacteria Trace 07/02/24 13:38: Troponin I 0.01 07/02/24 10:05 07/02/24 10:05 Response Orders (Tests/Meds): ED MEDICATIONS Generic Name Dose Route Start Last Admin Trade Name Freq PRN Reason Stop Dose Admin Chlorthalidone 25 mg 07/02/24 13:00 07/02/24 13:26 Chlorthalidone 25mg Tablet PO 08/01/24 12:59 25 mg DAILY PEGYG Administration Hydralazine HCl 25 mg 07/02/24 13:02 Hydralazine Hcl 25mg Tablet PO 08/01/24 12:57 TIDP PRN Hypertensive Emergency SBP>180 Esmolol HCl 2,500 mg in 250 mls @ 27.352 mls/hr 07/02/24 11:15 07/02/24 13:27 Esmolol In Water 2,500mg/250ml Premix IV 08/01/24 11:14 50 mcg/kg/min .Q9H9M PEGGY 27.35 mls/hr Titration Protocol 50 MCG/KG/MIN Nifedipine 60 mg 07/02/24 13:00 07/02/24 13:26 Nifedipine Xl 30mg Tablet PO 08/01/24 12:59 60 mg DAILY PEGGY Administration Discontinued Medications Generic Name Dose Route Start Last Admin Trade Name George PRN Reason Stop Dose Admin Esmolol HCl 46 mg 07/02/24 11:02 07/02/24 11:09 Esmolol Hcl 100 Mg/10 Ml Vial 0.5 mg/kg (46 mg) 07/02/24 11:03 46 mg IV Administration ONCE ONE Hydralazine HCl 10 mg 07/02/24 10:16 07/02/24 10:22 Hydralazine 20mg/Ml Vial IV 07/02/24 10:17 10 mg ONCE ONE Administration Hydralazine HCl 25 mg 07/02/24 12:58 Hydralazine Hcl 25mg Tablet PO 08/01/24 12:59 TID PRN Hypertensive Emergency Iopamidol 160 ml 07/02/24 11:36 07/02/24 11:38 Iopamidol-370 (76%);100ml Bottle IV 07/02/24 11:37 160 ml ONCE ONE Administration Irbesartan 300 mg 07/02/24 12:56 07/02/24 13:25 Irbesartan 300mg Tablet PO 07/02/24 12:57 300 mg ONCE ONE Administration Morphine Sulfate 4 mg 07/02/24 11:03 07/02/24 11:09 Morphine 4mg/Ml Syringe IV 07/02/24 11:04 4 mg ONCE ONE Administration Ondansetron HCl 4 mg 07/02/24 11:03 07/02/24 11:09 Ondansetron 4mg/2ml Vial IV 07/02/24 11:04 4 mg ONCE ONE Administration Sodium Chloride 80 ml 07/02/24 11:36 07/02/24 11:38 0.9 % Sodium Chloride 50 Ml Vial IV 07/02/24 11:37 80 ml ONCE ONE Administration Sodium Chloride 10 ml 07/02/24 11:36 07/02/24 11:38 Sodium Chloride 0.9% 10ml Syr (Rad Only) IV 07/02/24 11:37 10 ml ONCE ONE Administration ORDERS Category Date Time Status CT angio abdomen pelvis Stat Cat Scan 07/02/24 11:[address] angio chest - dissection Stat Cat Scan 07/02/24 10:[address] angio head Stat Cat Scan 07/02/24 10:[address] angio neck Stat Cat Scan 07/02/24 10:[address] head/brain wo con Stat Cat Scan 07/02/24 10:59 Completed Cardiology Consult [Consult to Cardiology] [CONS] Cons 07/02/24 11:48 Active Routine XR chest portable Stat Exams 07/02/24 10:17 Completed Complete Blood Count Auto Diff Stat Lab 07/02/24 10:05 Completed Comprehensive Metabolic Panel Stat Lab 07/02/24 10:05 Completed HIV (1&2) Antibody Rapid Stat Lab 07/02/24 10:05 Received Hemoglobin A1C Stat Lab 07/02/24 10:26 Received Hep C Ab with Reflex to RNA Stat Lab 07/02/24 10:05 Received Lipase Stat Lab 07/02/24 10:26 Completed Lipid Panel Stat Lab 07/02/24 10:26 Completed Magnesium Stat Lab 07/02/24 10:05 Completed Metanephrines, Fract. Plasma Routine Lab 07/02/24 10:26 Received NT Pro Brain Natriuretic Pep. Stat Lab 07/02/24 10:05 Completed PT INR [Prothrombin Time INR] Stat Lab 07/02/24 10:05 Completed PTT [Activated Partial Thrombo Time] Stat Lab 07/02/24 10:05 Completed T4 (Thyroxine) Stat Lab 07/02/24 10:05 Completed TSH [Thyroid Stimulating Hormone] Stat Lab 07/02/24 10:05 Completed Troponin I Q3H Lab 07/02/24 13:38 Completed Troponin I Q3H Lab 07/02/24 16:30 Ordered Troponin I Stat Lab 07/02/24 10:05 Completed Urinalysis and Microscopic Stat Lab 07/02/24 10:56 Completed MDM Narrative Medical Decision Narrative: 63-year-old female history of resistant hypertension, CAD without stenting, COPD not on home oxygen presenting with hypertension. Patient states that she is on 2 current antihypertensives: Carvedilol and lisinopril. States that she was on lisinopril in the past, however it started causing a cough and she was taken off of it. Was recently started on lisinopril again and is taking 30 mg in the morning. Taking carvedilol 6.25 mg twice daily. States that since she was started on the lisinopril, she feels that her hypertension has been getting worse. Not having chest pain, but feeling generally tired. Intermittently having left upper quadrant abdominal pain that feels like it is associated with when her blood pressure goes up. Also intermittently having left lateral upper arm pain, does not radiate from her neck, to her neck, down her arm into her fingers, etc. Unknown if this is related to the hypertension or not. States that she generally has blurry vision, but when her blood pressure spikes, she has blurry vision and feels like my head is going to explode. Currently feeling lightheaded and feeling of pressure in her head. No lower extremity edema, PND, orthopnea, nausea, vomiting, diaphoresis, syncope, or any other concerns. History was obtained via conversation with patient and daughter. On arrival, patient hemodynamically stable, alert, oriented x4, appropriate, GCS 15, moving all extremities spontaneously, pupils equal and reactive to light. Full physical exam performed and significant for well-appearing female no acute distress. Neurologically intact including cranial nerve, cerebellar, motor and sensory exam. EOMs intact and full. Cardiac exam with pretty substantial hypertension. No murmurs gallops or rubs on cardiac auscultation with normal S1, loud S2. Pulses equal and symmetric in upper and lower extremities. Lower extremities with minimal 1+ pitting edema. Lungs are clear bilaterally without focal sounds. Differential includes medication noncompliance, adverse medication reaction, primary versus secondary hypertension, CHF, hypertensive emergency, ACS, IL, among others. Patient was given 10 mg IV hydralazine for symptomatic management and correction of underlying abnormalities. Patient placed on continuous cardiac monitoring and continuous pulse ox with initial blood pressure 230/112, heart rate 93, saturation 97% on room air. Independent interpretation of EKG shows sinus rhythm with VA interval 113, QRS 77, QTc 398. No acute ischemic change. Leftward leaning axis. Shortly after hydralazine, patient states that she feels much better, blood pressure decreased by about 20%. Not currently having any symptoms. Workup independently interpreted and significant for nonactionable CBC, chemistry, or coags. Troponin negative, BNP mildly elevated 360. Chest x-ray without acute cardiopulmonary or airspace disease. Called the room shortly after and on reevaluation around 11 AM, patient stating that she is having severe mid back pain between her shoulder blades that does not radiate. Hypertension returning. More concern for cardiac versus aortic pathology at this point. Patient was given 4 mg Zofran, 4 mg morphine, esmolol bolus and drip. CT angiograms were ordered. On independent interpretation of imaging, no acute dissection. Thoracic aorta about 3.5 cm, but no evidence of acute abnormality. Lungs appear normal as well. CT angiogram of the abdomen with central mesenteric fat stranding which is nonspecific. Lipase negative.. On reevaluation after starting esmolol, patient states that she is feeling much better, but has mild headache. I feel this is likely secondary to acute drop in blood pressure. Patient's blood pressure shortly thereafter nearly 150/70. See radiology read for full review of final results. Heart score 5. Patient was placed in observation beginning at 11 AM in order to give meds, rule out evolving IL with delta troponins and determine need for admission versus home-going. The patient was provided meds, cardiology consult, imaging while awaiting results. Independent interpretation of results demonstrated negative CT scans. Delta troponin negative. Cardiology visited patient, recommended medication overhaul, recommendations entered. On reevaluation, patient feels much better. Tissue perfusion reassessment performed patient mentating, following commands, good capillary refill and hemodynamically stable. At this time, I feel patient is appropriate for discharge. Total observation time 3 hours. Because patient at baseline without signs or symptoms of clinical decompensation, deemed appropriate for discharge. Results were relayed to patient who voiced understanding and were agreeable to outpatient management and follow up. I discussed my clinical impression with patient and answered all questions. At this time, the evidence for any other entities in the differential is insufficient to warrant any further testing or ED observation. This was explained as well. Advisory was given that persistent or worsening symptoms require further evaluation. I confirmed the understanding of this discussion. Tubing Oiler disclaimer Much of this encounter note is an electronic meeting facilitator spoken language to printed text. Electronic meeting facilitator of the spoken language may permit errors. Although I have reviewed the note, some errors may still exist.
[2024-07-02 10:40] LABS: NT Pro Brain Natriuretic Pep. 360 pg/mL (0-125)
[2024-07-02 10:46] LABS: Troponin I < 0.01 ng/ml (0.00-0.034)
[2024-07-02 10:47] LABS: T4 (Thyroxine) 10.6 ug/dl (5.53-11.0)
--- NOTE | 2024-07-02 10:59 | CT_ITS ---
FINAL REPORT TECHNIQUE: Noncontrast exam. Coronal and sagittal reconstructions were obtained and reviewed. This study was performed with techniques to keep radiation doses as low as reasonably achievable, (ALARA). Individualized dose reduction techniques using automated exposure control or adjustment of mA and/or kV according to the patient''s size were employed. CLINICAL HISTORY: ASH, HTN, blurry vision COMPARISON: None FINDINGS: No abnormal density is seen. Ventricles are normal. There is no hemorrhage. No mass effect is seen. Bone windows show no evidence of fracture. IMPRESSION: No acute findings Reviewed, Interpreted and Dictated by Camelia Henry MD Transcribed by Chel Dailey Authenticated and [facility]
--- NOTE | 2024-07-02 10:59 | CT_ITS ---
FINAL REPORT CLINICAL HISTORY: HTN, mid back pain, CP COMPARISON: Low-dose CT scan 06/25/2024 FINDINGS: CT CHEST AND CTA THORAX TECHNIQUE: Thin section axial CT with IV contrast supplemented with 3D MIP multiplanar reconstruction under CT Angiogram protocol This study was performed with techniques to keep radiation doses as low as reasonably achievable, (ALARA). Individualized dose reduction techniques using automated exposure control or adjustment of mA and/or kV according to the patient's size were employed. FINDINGS: CTA chest: Thoracic aorta: No aneurysm, dissection or rupture. Great vessel origins are widely patent. Chest: There is a right middle lobe nodule measuring 10 mm. The left lung is clear. No pleural or pericardial effusion is seen . No adenopathy or mass lesion is present . IMPRESSION: Unremarkable appearance of the aorta and major branch vessels. Incidental right middle lobe nodule demonstrated to be likely benign on prior low-dose CT. Reviewed, Interpreted and Dictated by Camelia Henry MD Transcribed by Chel Dailey Authenticated and [facility]
--- NOTE | 2024-07-02 10:59 | CT_ITS ---
FINAL REPORT CLINICAL HISTORY: blurry vision, CP to back and HTN COMPARISON: None FINDINGS: CT NECK ANGIO, WITHOUT AND WITH CONTRAST TECHNIQUE: Thin section axial CT with contrast with multiplanar 3D MIP reconstruction. This study was performed with techniques to keep radiation doses as low as reasonably achievable, (ALARA). Individualized dose reduction techniques using automated exposure control or adjustment of mA and/or kV according to the patient's size were employed. NASCET criteria and technique was utilized during interpretation. FINDINGS: Aortic arch: Arch shows no significant narrowing. Great vessel origins are widely patent. Right carotid: No significant stenosis is seen of the cervical common or internal carotid artery. Left carotid: No significant stenosis is seen of the cervical common or internal carotid artery. Vertebrals: The vertebral arteries are codominant. No significant stenosis is present. Incidental note is made of thyromegaly. IMPRESSION: No significant stenosis of the cervical carotid arteries Reviewed, Interpreted and Dictated by Camelia Henry MD Transcribed by Chel Dailey Authenticated and [facility]
--- NOTE | 2024-07-02 10:59 | CT_ITS ---
FINAL REPORT CLINICAL HISTORY: blurry vision, CP to back and HTN COMPARISON: None FINDINGS: CTA HEAD TECHNIQUE: Thin section axial CT with contrast with 3D MIP reconstruction This study was performed with techniques to keep radiation doses as low as reasonably achievable, (ALARA). Individualized dose reduction techniques using automated exposure control or adjustment of mA and/or kV according to the patient's size were employed. FINDINGS: No aneurysm is seen. Major intracranial vessels are patent without significant stenosis. . IMPRESSION: Unremarkable Reviewed, Interpreted and Dictated by Camelia Henry MD Transcribed by Chel Dailey Authenticated and [facility]
[2024-07-02 11:01] LABS: Thyroid Stimulating Hormone 1.97 uIU/mL (0.465-4.68)
[2024-07-02 11:02] LABS: Microscopic, Urine URINE MICROSCOPIC (MICROSCOPIC)
[2024-07-02] MEDS: ONDANSETRON 4MG/2ML VIAL 4 MG IV (11:09)
[2024-07-02] MEDS: MORPHINE 4MG/ML SYRINGE 4 MG IV (11:09)
[2024-07-02] MEDS: ESMOLOL HCL 100 MG/10 ML VIAL 46 MG IV (11:09)
[2024-07-02] MEDS: ESMOLOL HCL IN STERILE WATER 2,500 MG/250 ML PIGGYBACK 27.35 MG IV (11:10)
[2024-07-02 11:14] LABS: Appearance,Urine CLEAR (Clear); Bilirubin,Urine Negative (Negative); Blood, Urine Negative (Negative); Color,Urine YELLOW (Yellow); Glucose,Urine (UA) Negative (Negative); Ketones,Urine Negative (Negative); Leukocyte Esterase,Urine Negative (Negative); Nitrate,Urine Negative (Negative); Protein,Urine Negative (Negative); Specific Gravity, Urine <= 1.005 (1.005-1.030); Urobilinogen,Urine 0.2 EU/dl (0.2)
--- NOTE | 2024-07-02 11:14 | CT_ITS ---
FINAL REPORT TECHNIQUE: Pre-and postcontrast images of the abdomen through the pelvis were performed by computed tomography. Extensive 3-D reconstruction images were performed. A CTA was performed. This study was performed with techniques to keep radiation doses as low as reasonably achievable (ALARA). Individualized dose reduction techniques using automated exposure control or adjustment of mA and/or kV according to the patient's size were employed. CLINICAL HISTORY: concern for dissection, CP to back with HTN COMPARISON: CT abdomen pelvis 01/24/2024 FINDINGS: ABDOMEN: Precontrast images demonstrate no evidence of nephrolithiasis. Mild biliary duct dilatation is attributed to prior cholecystectomy. The remaining solid organs are unremarkable. There is mild stranding of the mesenteric fat which can be seen with pancreatitis or mesenteric panniculitis. PELVIS: The appendix is normal. There is moderate sigmoid diverticulosis. The patient is status post hysterectomy. The urinary bladder is distended. CTA: The abdominal aorta is proper caliber. The renal arteries, iliac vessels, and mesenteric vessels are widely patent. IMPRESSION: Unremarkable appearance of the aorta and major branch vessels. Mild stranding of the central mesenteric fat which could be due to mesenteric panniculitis or pancreatitis. Reviewed, Interpreted and Dictated by Camelia Henry MD Transcribed by Chel Dailey Authenticated and [facility]
--- NOTE | 2024-07-02 11:15 | HMH.PHAINT1 ---
Pharmacy Intervention Comments: MEDICATION RECONCILIATION COMPLETED ON PATIENT USING EXTERNAL FILL HISTORY FROM PHARMACY. -JAMES BRANNON, TINYD
--- NOTE | 2024-07-02 11:18 | PC.NURSE ---
Patient to radiology
[2024-07-02 11:19] LABS: Chol/HDL Ratio 3.3 (1-3.5); Cholesterol 190 mg/dl (140-200); HDL Cholesterol 58 mg/dl (40-60); Triglycerides 147 mg/dl (30-150); VLDL Cholesterol 29 mg/dL (0-40)
--- NOTE | 2024-07-02 11:24 | PC.NURSE ---
cardiology consulted for pt
[2024-07-02 11:30] LABS: Direct LDL Cholesterol 93.44 mg/dL (100-129)
[2024-07-02] MEDS: 0.9 % SODIUM CHLORIDE 50 ML VIAL 80 ML IV (11:38)
[2024-07-02] MEDS: IOPAMIDOL-370 (76%);100ML BOTTLE 160 ML IV (11:38)
[2024-07-02] MEDS: SODIUM CHLORIDE 0.9% 10ML SYR (RAD ONLY) 10 ML IV (11:38)
[2024-07-02 11:41] LABS: Bacteria,Urine Trace /lpf; Squamous Epithelial Cell,Urine Occasional #/hpf (0-5)
--- NOTE | 2024-07-02 11:42 | PC.NURSE ---
pt back in room. she is more comfortable, gave warm blankets for comfort. BP 144/74, notified. Also have placed pt on 2lmp nc d/t sat 89-90%.
--- NOTE | 2024-07-02 11:51 | PC.NURSE ---
pt given water, okay'd by ANKITA VÁZQUEZ
--- NOTE | 2024-07-02 12:15 | PC.NURSE ---
Cardiology at for consult
[2024-07-02 12:41] LABS: Lipase 104 U/L (23-300)
--- NOTE | 2024-07-02 12:56 | EXP.CARD.CON ---
History of Present Illness History of Present Illness Consult date: 07/02/24 Requesting physician: Francis Aguilera Consult reason: hypertension Chief complaint: Htn, abdominal pain History of present illness: 63-year-old female with history of hypertension, obesity, gastric ulcers presents to the hospital with complaint of severe hypertension and epigastric pain. Patient describes several months of worsening episodic epigastric pain which occasionally radiates to her arm restricted to her back associated with systolic blood pressures greater than 230. She states her resting blood pressure when she is not having pain is around 180s. She currently only takes lisinopril 30 and Coreg 6.25 mg twice daily at home. States she has dry cough from lisinopril but it was started for her anyway. States she has had very little progress with blood pressure control. CT chest here is negative for AAA but does show possible acute pancreatitis with fat stranding. Pancreatic enzymes pending. EKG shows sinus rhythm without ischemia or ectopy, first troponin is normal. Patient did have left heart cath earlier this year which showed nonobstructive disease. [facility] Disclaimer: The information contained in this section may have been updated after the patient was seen, as this information can be updated by other users. 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 CAD in ute artery Hyperlipidemia Urinary tract infection Kidney stone COPD (chronic obstructive pulmonary disease) Endometriosis History of transient ischemic attack (TIA) Osteoarthritis Osteoporosis Irritable bowel syndrome (IBS) History of gastroesophageal reflux (GERD) Glaucoma History of anemia Epigastric pain Abnormal ECG Palpitations COVID-19 long hauler manifesting chronic palpitations Swelling Dizziness Dyspnea Chest pain Surgical History H/O esophagogastroduodenoscopy History of cholecystectomy History of hysterectomy Family History Other Family history of cancer Family history of myocardial infarction Social History Smoking Status: Former smoker tobacco type: cigarettes alcohol intake: never substance use type: denies use current occupational status: disabled Travel in the last 8 weeks: None housing: house current occupational exposures/hazards: No caffeine: Yes Have you lived/traveled outside [place] in past 30 days?: No Contact w/someone who lives/traveled outside [place] past 30 days?: No Exposure to someone with infectious disease in past 14 days?: No Do you have a fever (greater than 100.4 F or 38 C)?: No Have you tested positive for COVID-19: No Exposed to someone with COVID-19 in past 14 days?: No Do you have a sore throat?: No Do you have a cough?: No Do you have any weakness?: No Do you have any diarrhea?: No Are you experiencing any unusual bleeding?: No Do you have any muscle aches/pain?: No Do you have any abdominal pain?: No Are you experiencing loss of taste or smell?: No Review of Systems Constitutional Constitutional: Denies fatigue and Denies weakness Eyes Eyes: Denies loss of vision ENT Ears, Nose, Mouth, and Throat: Denies hearing loss and Denies vertigo *Cardiovascular Cardiovascular: Denies chest pain, Denies dyspnea and Denies syncope *Respiratory Respiratory: Denies cough and Denies dyspnea *Gastrointestinal Gastrointestinal: Reports abdominal pain, Denies change in stool character, Denies nausea and Denies vomiting *Musculoskeletal Musculoskeletal: Denies muscle weakness Integumentary/Breasts Skin/Breast: Denies changing lesions *Neurologic Neurologic: Denies loss of vision, Denies syncope, Denies vertigo and Denies weakness Endocrine Endocrine: Denies fatigue Exam Data for Last 24 hours Vital signs and Labs for Last 24 Hours: Temp Pulse Resp BP Pulse Ox O2 Del Method O2 Flow Rate 97.7 F 78 15 147/86 H 97 Room Air 2 07/02/24 10:01 07/02/24 12:20 07/02/24 12:20 07/02/24 12:20 07/02/24 12:20 07/02/24 12:20 07/02/24 11:40 Laboratory Results - last 24 hr 07/02/24 10:05: WBC 6.8, RBC 4.84, Hgb 12.9, Hct 41.0, MCV 84.7, MCH 26.7 L, MCHC 31.5 L, RDW 14.2, Plt Count 260, MPV 9.4, Neut % (Auto) 54.3, Lymph % (Auto) 35.3, [place] % (Auto) 6.3, Eos % (Auto) 3.1, Baso % (Auto) 0.9, Neut # (Auto) 3.7, Lymph # (Auto) 2.4, [place] # (Auto) 0.4, Eos # (Auto) 0.2, Baso # (Auto) 0.1, PT 10.2, INR 0.90, APTT 25.9, Sodium 136, Potassium 4.3, Chloride 108 H, Carbon Dioxide 26, Anion Gap 6.3, BUN 12, Creatinine 0.80, Estimated Creat Clear 81, Estimated GFR 72, Est GFR ( Amer) 87, Glucose 94, Calcium 9.2, Magnesium 2.1, Total Bilirubin 0.5, AST 27, ALT 20, Alkaline Phosphatase 93, Troponin I < 0.01, NT-Pro-B Natriuret Pep 360 H, Total Protein 7.0, Albumin 4.2, Globulin 2.8, Albumin/Globulin Ratio 1.5, TSH 1.97, Thyroxine (T4) 10.6 07/02/24 10:26: Triglycerides 147, Cholesterol 190, LDL Cholesterol Direct 93.44 L, VLDL Cholesterol 29, HDL Cholesterol 58, Cholesterol/HDL Ratio 3.3, Lipase 104 07/02/24 10:56: Urine Color Yellow, Urine Appearance Clear, Urine pH 7.0, Ur Specific [place] <= 1.005, Urine Protein Negative, Urine Glucose (UA) Negative, Urine Ketones Negative, Urine Blood Negative, Urine Nitrate Negative, Urine Bilirubin Negative, Urine Urobilinogen 0.2, Ur Leukocyte Esterase Negative, Urine RBC None, Urine WBC None, Ur Squamous Epith Cells Occasional, Urine Bacteria Trace I & O for Last 24 hours: Intake & Output 06/29/24 06/30/24 07/01/24 07/02/24 23:59 23:59 23:59 23:59 Weight 201 lb Meds Home Medications and Allergies Home Medications ?Medication ?Instructions ?Recorded ?Confirmed ?Type carvedilol 6.25 mg tablet 6.25 mg PO BID 07/02/24 07/02/24 History latanoprost 0.005 % eye drops 1 drp Eye-Both HS 07/02/24 07/02/24 History linaclotide 145 mcg capsule 145 mcg PO DAILY 07/02/24 07/02/24 History (Linzess) lisinopril 30 mg tablet 30 mg PO DAILY 07/02/24 07/02/24 History pantoprazole 40 mg tablet,delayed 40 mg PO DAILY 07/02/24 07/02/24 History release New Prescriptions to Start Prescriptions: Allergies Allergy/AdvReac Type Severity Reaction Status Date / Time azithromycin (AZITHROMYCIN) Allergy Unknown Verified 12/17/23 08:16 clarithromycin Allergy Unknown Verified 12/17/23 08:16 (CLARITHROMYCIN) levofloxacin (From LEVAQUIN) Allergy Unknown Verified 12/17/23 08:16 metoprolol AdvReac Wheezing Verified 12/17/23 08:16 sulfamethoxazole (From AdvReac Verified 12/17/23 08:16 Bactrim) trimethoprim (From Bactrim) AdvReac Verified 12/17/23 08:16 Assessment and Plan *Assessment and plan (1) Hypertension, accelerated: Status: Acute Category: Medical Code(s): I10 - Essential (primary) hypertension (2) Abdominal pain: Status: Acute Category: Medical Code(s): R10.9 - Unspecified abdominal pain (3) Coronary artery disease: Status: Acute Category: Medical Code(s): I25.10 - Atherosclerotic heart disease of ute coronary artery without angina pectoris Plan Htn Accelerated - 180s at baseline with frequent elevations >230 with abdominal pain - DC Lisinopril due to dry cough - DC Coreg - Start Irbesartan 300, Chlorthalidone 25, and Procardia XL 60mg - add Hydralazine 25mg QID PRN BP >180 - treat underlying obesity, 2g Na limit per day, screen for sleep apnea, and address acute abdominal pain - keep BID BP log and bring to office visit for further management Abdominal Pain - possible acute pancreatitis per CT abdomen - defer to ED provider Nonobstructive CAD - per [facility] 09/2024 - she needs to be on ASA and Statin retirement but with acute abdominal pain, gastric ulcers and numerous other med changes will defer this to outpatient management - ACS ruled out Pt can stay for observation or can DC home and start new meds as outlined above. She and her daughters would like to DC home. She needs office with with me in 1-2 weeks. Call office or come to ED sooner if symptomatic.
[2024-07-02] MEDS: IRBESARTAN 300MG TABLET 300 MG PO (13:25)
[2024-07-02] MEDS: NIFEdipine XL 30MG TABLET 60 MG PO (13:26)
[2024-07-02] MEDS: CHLORTHALIDONE 25MG TABLET 25 MG PO (13:26)
--- NOTE | 2024-07-02 13:47 | PC.NURSE ---
Dr. Aguilera at [facility] for update on POC
[2024-07-02 14:13] LABS: Troponin I 0.01 ng/ml (0.00-0.034)
[2024-07-02 14:54] LABS: Hemoglobin A1C 5.9 % (4.0-6.0)
[2024-07-02 15:14] LABS: HIV Combo NEGATIVE (Negative)
[2024-07-03 08:14] LABS: HCV Ab Non Reactive (Non Reactive)
[2024-07-06 16:09] LABS: Metanephrine Plasma < 25.0 pg/mL (0.0-88.0); Normetanephrine Plasma 81.1 pg/mL (0.0-285.2)
== END 2024-07-02 15:22 | disposition home or self-care (01) ==
PROVIDERS: Emergency Provider Emergency Medicine; PCP Internal Medicine Adolescent Medicine
DX: I25.10 Atherosclerotic heart disease of native coronary artery without angina pectoris (principal); K85.90 Acute pancreatitis without necrosis or infection, unspecified; M54.9 Dorsalgia, unspecified; R10.9 Unspecified abdominal pain; R07.9 Chest pain, unspecified; R42 Dizziness and giddiness; I10 Essential (primary) hypertension; M79.602 Pain in left arm; Z87.891 Personal history of nicotine dependence
CPT/HCPCS: 70450; 70496; 70498; 71045; 71275; 74174; 80053; 80061; 81001; 83036; 83690; 83735; 83835; 83880; 84436; 84443; 84484; 85025; 85610; 85730; 86803; 87389; 93005; 96374; 96375; 99252; 99291; J0360; J2270; J2405; Q9967

== ENCOUNTER 2024-10-22 15:24 | Outpatient (CLI) | payer MEDICARE, MEDICAID, SELFPAY ==
--- OUTSIDE RECORDS SUMMARY | 2024-10-22 15:26 | XMS_ITS | Data Portability ---
Author Organization [facility] ADMIN Address [address] [place] [address] Care Team Providers Care Manager Employee Benefits Name Role Phone ELNA SANTACRUZ Primary Care Provider LIA LEE Teletypesetter Assessment No assessment recorded. Plan of Treatment Reminders Order Date Submit Date Provider Last Modified By Organization Details Last Modified Time Details Appointments None recorded. Lab None recorded. Referral None recorded. Procedures None recorded. Surgeries None recorded. Imaging NM, gastric emptying scan 2023 [facility] Centralized Scheduling, [address] , [place], [address], 4 11:30:37 XR, abdomen, complete 2023 024 [facility], [address] [facility], [address], [place], [address], 4 16:26:12 Medication Orders sucralfate 1 gram tablet [address] [facility], [address] [facility], [place], [address], 4 15:18:48 Patient TargetsNo targets recorded. Patient InstructionsNo instructions recorded. Reason for Referral None Reported. Results Created Date Observation Date Name Description Value Unit Range Abnormal Flag Note LastModifiedBy Organization Detail LastModifiedTime 02/04/20 24 02/04/2024 XR, abdom en, compl ete No observ ation record ed. [facility] (Radiology) [address], [place], [address], 02/06/2024 08:38:46 02/04/20 24 02/04/2024 ABD 2 V. flat erect [facility] [address] [place] [address] Phone: Fax: Name: THALIA HUIZAR Exam Date: : 11/[birth year] Age 63 years Gender : F Access ion: [id number] Physic aminta: BISI LEE Facili ty: [facility] Facili ty HSV: Outpat ient Exam: ABD 2 V. FLAT ERECT TWO VIEW ABDOME N SERIES : HISTOR Y: Right upper quadra nt pain for one month COMPAR DENISSE: None Flat and erect views of the abdome n demons trate a nonobs tructi ve bowel gas patter n. There is no free air. Status post cholec ystect lizy. There is modera te dextro scolio sis of the spine. IMPRES LJ: No acute proces s. Images were review ed, interp reted and dictat ed by Rg Pierre MD Transc ribed by Chel Dailey Dictat ed By: RG PIERRE Transc ribed By: RG PIERRE Transc ribed On: 4:21 PM Electr onical ly signed by: RG PIERRE Thank you for referr ing THALIA HUIZAR to [facility]. Legall y authen ticate d by IGNACIO RODRÍGUEZ MD 02-03 16:21: 15 CC'ed Logic: Orderi ng Provid er: MARCELLO Marquez CC Provid er: RADHA Wynn Attend ing Provid er: MARCELLO Marquez Referr ing Provid er: MARCELLO Marquez Admitt ing Provid er: MARCELLO beasley[address] [place] [address] (Radiology) [address] , [place], [address], 02/05/2024 12:08:46 04/02/20 24 04/02/2024 NM, gastr ic empty ing scan No observ ation record ed. [facility] (Radiology) [address] [place], [address], 04/05/2024 08:45:51 04/02/20 24 04/02/2024 nm gastr ic empty ing study [facility] n [facility] [address] [place] [address] Phone: Fax: Name: THALIA HUIZAR Exam Date: : [birth year] Age 63 years Gender : F Access ion: [id number] Physic aminta: BISI LEE Facili ty: [facility] Facili ty HSV: Outpat ient Exam: NM GASTRI C EMPTYI NG STUDY NM Gastri c Emptyi ng Study INDICA TION: . TECHNI QUE: The patien t ingest ed a meal of eggs labele d with 0.51 mCi of techne tium 99m sulfur colloi d in oatmea l. 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 FINDIN GS: Immedi ate images demons trate normal distri bution of activi ty within the stomac h. Subseq uent imagin g shows propag ation of activi ty from the stomac h to small bowel. Percen tages of ingest ed activi ty remain ing within the stomac h at approx imatel y one and 2 hours post ingest ion were, 10% and 2%, respec tively . IMPRES LJ: NORMAL GASTRI C EMPTYI NG. Electr onical ly signed by: Rip Elizondo DO 2023 11:24 AM EDT RP Workst ation: [id number] Dictat ed By: RIP ELIZONDO Transc ribed By: Transc ribed On: 11:13 AM Electr onical ly signed by: RIP ELIZONDO 9/20/2 024 Thank you for referr THALIA Castaneda to [facility] it Hospit al. Legall y authen ticate d by BHAVIK ERWIN DO 04-02 11:13: 00 CC'ed Logic: Orderi ng Provid er: MARCELLO Marquez CC Provid er: RADHA Wynn Attend ing Provid er: MARCELLO Marquez Referr ing Provid er: MARCELLO Marquez Admitt ing Provid er: MARCELLO beasley[address] [place] [address] (Radiology) [address] , [place], [address], 04/02/2024 11:46:47 Result Notes None recorded. Problems Name Problem SNOMED Code Status Onset Date Resolution Date Notes Provider Name and Address Organization Details Recorded Time Right upper quadrant pain 633300743 Active 2023 Lia Lee NP [address], [address], [place], [address], [place] [facility] [place] 14:45:20 Gastro-esop hageal reflux disease with esophagitis 881040938 Active 2023 Lia Lee NP [address], [address], [place], [address], [place] [facility] [place] 14:45:27 Erosive gastritis 3499186122123 100 Active 2023 Lia Lee NP [address], [address], [place], [address], [place] [facility] [place] 4 14:45:38 Constipatio n 54927881 Active 2023 Lia Lee NP [address], [address], [place], [address], [place] [facility] [place] 15:30:21 Chronic idiopathic constipatio n 35821545 Active 2023 Lia Lee NP [address], [address], [place], [address], [place] [facility] [place] 15:26:06 Nausea 031215872 Active 2023 Lia Lee NP [address], [address], [place], [address], [place] [facility] [place] 4 15:27:04 Abdominal bloating 476006702 Active 2023 Lia Lee NP [address], [address], [place], [address], [place] [facility] [place] 4 15:27:23 Problem Notes None recorded. Procedures Surgical History Date Name Laterality Status Provider Name and Address Organization Details Recorded Time Most Recent Bone Density completed Vivian [place] [facility] [place] 02/04/2024 13:53:27 Other completed [place]ian [place] [facility] [place] 02/04/2024 13:53:22 Colonoscopy completed [place]ian [place] [facility] [place] 02/04/2024 13:53:22 Imaging Results Imaging Date Name Status LastModified by [employer] ation Details LastModified Time 02/04/2024 XR, abdomen, complete completed [facility] (Radiology) [address] [place], [address], 02/06/2024 08:38:46 02/04/2024 ABD 2 V. flat erect completed [address] (Radiology) [address] [place], [address], 02/05/2024 12:08:46 04/02/2024 NM, gastric emptying scan completed [facility] (Radiology) [address] [place], [address], 04/05/2024 08:45:51 04/02/2024 nm gastric emptying study completed [address] (Radiology) [address] [place], [address], 04/02/2024 11:46:47 Procedure Notes None recorded. Medical Equipment None Reported. Allergies Allergen ID Allergen Name Allergen Category Reaction Reaction Severity Criticality Documentation Date Start Date Code Code System Note Provider Name and Address Organization Details Recorded Time 361841 azithromy rossy medicatio n Not available Not available Not available 02/04/2024 86541 RxNorm [facility] [place] 4 13:52:08 823795 Levaquin medicatio n Not available Not available Not available 03/24/2024 72221 2 RxNorm [facility] [place] 4 14:16:34 Medications Name Sig Start Date Stop Date Status Note LastModified by Organization Details LastModified Time losartan 50 mg tablet TAKE 1 TABLET BY MOUTH ONCE DAILY active Not Available Not Available No t Available latanoprost 0.005 % eye drops INSTILL 1 DROP INTO EACH EYE AT BEDTIME active Not Available Not Available No t Available carvedilol 6.25 mg tablet TAKE 1 TABLET BY MOUTH TWICE DAILY active Not Available Not Available No t Available carvedilol 12.5 mg tablet TAKE 1 TABLET BY MOUTH TWICE DAILY WITH FOOD 02/03 completed Not Available Not Available Not Available azithromyci n 250 mg tablet TAKE DIRECTED active Not Available Not Available No t Available valacyclovi r 1 gram tablet TAKE 1 TABLET BY MOUTH THREE TIMES DAILY 03/23 completed Not Available Not Available Not Available sucralfate 1 gram tablet TAKE 1 TABLET BY MOUTH 4 TIMES DAILY 03/23 completed Not Available Not Available Not Available lisinopril 20 mg tablet TAKE 1 TABLET BY MOUTH ONCE DAILY active Not Available Not Available No t Available famotidine 40 mg tablet TAKE 1 TABLET BY MOUTH ONCE DAILY AT BEDTIME 03/23 completed Not Available Not Available Not Available pantoprazol e 40 mg intravenous solution 02/03 completed Not Available Not Available Not Available hydralazine 25 mg tablet TAKE 1 TABLET BY MOUTH 4 TIMES DAILY NEEDED FOR SYSTOLIC BLOOD PRESSURE GREATER THAN 180 active Not Available Not Available No t Available chlorthalid one 25 mg tablet TAKE 1 TABLET BY MOUTH ONCE DAILY active Not Available Not Available No t Available bisoprolol fumarate 5 mg tablet TAKE 1 TABLET BY MOUTH ONCE DAILY 02/03 completed Not Available Not Available Not Available famotidine 20 mg tablet TAKE 1 TABLET BY MOUTH TWICE DAILY active Not Available Not Available No t Available nifedipine ER 60 mg tablet,exte nded release 24 hr TAKE 1 TABLET BY MOUTH ONCE DAILY active Not Available Not Available No t Available pantoprazol e 40 mg tablet,natan yed release TAKE 1 TABLET BY MOUTH ONCE DAILY active Not Available Not Available No t Available valsartan 320 mg tablet TAKE 1 TABLET BY MOUTH ONCE DAILY 02/03 completed Not Available Not Available Not Available lisinopril 30 mg tablet TAKE 1 TABLET BY MOUTH ONCE DAILY active Not Available Not Available No t Available diltiazem CD 120 mg capsule,ext ended release 24 hr TAKE 1 CAPSULE BY MOUTH ONCE DAILY active Not Available Not Available No t Available furosemide 20 mg tablet TAKE 1 TABLET BY MOUTH ONCE DAILY 02/03 completed Not Available Not Available Not Available gabapentin 100 mg capsule TAKE 1 CAPSULE BY MOUTH THREE TIMES DAILY NEEDED 03/23 completed Not Available Not Available Not Available metoprolol succinate ER 25 mg tablet,exte nded release 24 hr TAKE 1 TABLET BY MOUTH ONCE DAILY 02/03 completed Not Available Not Available Not Available irbesartan 150 mg tablet TAKE 1 TABLET BY MOUTH ONCE DAILY active Not Available Not Available No t Available bromphenira mine-pseudo ephedrine-D M 2 mg-30 mg-10 mg/5 mL oral syrup TAKE 10 ML BY MOUTH EVERY 6 HOURS NEEDED FOR COUGH AND CONGESTIO N active Not Available Not Available No t Available ondansetron 4 mg disintegrat ing tablet DISSOLVE 1 TABLET IN MOUTH EVERY 8 HOURS NEEDED FOR NAUSEA AND VOMITING FOR 4 DAYS 02/03 completed Not Available Not Available Not Available losartan 100 mg tablet active Not Available Not Available Not Available irbesartan 300 mg tablet TAKE 1 TABLET BY MOUTH ONCE DAILY active Not Available Not Available No t Available diazepam 5 mg tablet TAKE 1 TAB 1 HOUR PRIOR TO MRI, MAY REPEAT 1 TIME IF NEEDED 02/03 completed Not Available Not Available Not Available rosuvastati n 10 mg tablet TAKE 1 TABLET BY MOUTH ONCE DAILY 02/03 completed Not Available Not Available Not Available cetirizine 10 mg capsule active Not Available Not Available Not Available Linzess 145 mcg capsule TAKE 1 CAPSULE BY MOUTH ONCE DAILY FOR 90 DAYS active Not Available Not Available No t Available latanoprost (PF) 0.005 % eye drops in a dropperette active Not Available Not Available Not Available Vitals Date Recorded Body height Body mass index (BMI) Body weight Body temperature Oxygen saturation Oxygen saturation in Arterial blood by Pulse oximetry Heart rate Provider Name and Address Organization Details Last Updated DateTime 4 165.1 cm 34 kg/m2 32127.2 8 g 97.4 [degF] 95 % 95 % 86 /min Vivian Julesbeckie CHIN [facility] [place] 4 14:04:03 Date Recorded Body height Body mass index (BMI) Body weight Body temperature Oxygen saturation Oxygen saturation in Arterial blood by Pulse oximetry Heart rate Provider Name and Address Organization Details Last Updated DateTime 4 165.1 cm 33.6 kg/m2 04922.9 4 g 98.1 [degF] 94 % 94 % 80 /min Vivian [place] CH[facility] [place] 4 14:16:30 Social History Question Answer Notes LastModified by Organizat ion Details LastModified Time Tobacco Smoking Status Former Smoker Vivian [facility] [place] 02/04/2024 13:53:17 Are You Passively Exposed To Smoke? No Information no t available 02/04/2024 Do You Use Any Illicit Or Recreational Drugs? No Information not available 02/04/2024 Sex: Unknown Functional Status Question Answer Note LastModified by Organization D etails LastModified Time What is your exercise level? Moderate Information not available 02/04/2024 Mental Status None recorded. Family History Relationship Description Onset Age of this Age Resolved Age Notes LastModified by Organization Details LastModified Time Mother Gastroesopha geal reflux disease pt. added direct ly (02/03) [email or web address] Not available 02/04/2024 11:44:05 Sister Gastroesopha geal reflux disease pt. added direct ly (02/03) API-13 Not available 02/04/2024 11:44:05 Daughter Gastroesopha geal reflux disease pt. added direct ly (02/03) API-13 Not available 02/04/2024 11:44:05 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 Condition Response Autoimmune disease Y Vision or Eye Problems Y Anemia Y Reflux/GERD Y Heart Disease Y Back Problems Y Hypertension Y COPD Y Lung Disease Y Gynecological History Statement/Question Response Most Recent Bone Density 06/05/2021 Sexually Active? N Obstetrics History GPAL:G 0 P 0 0 0 0 Past Encounters Encounter ID Performer Location Encounter Start Date Encounter Closed Date Diagnosis/Indication Diagnosis SNOMED-CT Code Diagnosis ICD10 Code Diagnosis Note [id number] Lia Lee NP [facility] [address] [place] [phone] 02/04/2024 13:45:21 02/04/2024 15:35:12 Right upper quadrant pain 988982712 R10.11 Two week history of right upper quadrant pain radiating to back. History cholecyste ctomy. Evaluated [facility] ED 01/24/[address] and labs performed which she reports as normal however I do not have those records to review today. She continues Pantoprazo le for treatment of GERD and was recently prescribed Famotidine as well. She has decreased portion sizes with improvemen t. She had an EGD with Dr. Kamlesh Rizvi at [facility] 12/17/23 with moderate gastritis noted. I do not have pathology to review. Recommend x-ray abdomen KUB today to rule out underlying stool burden. Will continue to monitor. Recommend that she return to ED with worsening symptoms. Gastro-eso phageal reflux disease with esophagitis 693062385 K21.00 Continues PPI and famotidine as prescribed . Erosive gastritis 161752 8064 985122 K29.70 Noted on EGD reviewed from 12/17/[address] Rizvi at [facility]. Recommend continued use of PPI and famotidine as prescribed . Will obtain pathology to review. Recommend Carafate 1 gm tab po QID. History of polyp of colon 908786950 Z86.010 Last colonoscop y 10/2020 at [facility]. Constipation 18971019 K5 9.00 Currently controlled with use of stool softeners and fiber. [id number] Lia Lee NP [facility] [address] [place] [phone] 03/24/2024 13:53:54 03/24/2024 14:51:21 Nausea 033423204 R11.0 increased episodes nausea and upper abdominal bloating and dyspepsia. Denies vomiting. Recommend gastric emptying study to rule out gastropare sis. emptying study Erosive gastritis 570649 0295 908768 K29.70 Noted on EGD from 12/17/[address] Rizvi at [facility]. Continues PPI and famotidine as prescribed . Prescribed Carafate however was unable to tolerate. Gastro-eso phageal reflux disease with esophagitis 066053307 K21.00 Continues PPI and famotidine as prescribed . History of polyp of colon 331690496 Z86.010 Last colonoscop y 10/2020 at [facility]. Chronic id iopathic constipation 48926804 K59.04 uncontroll ed symptoms with use of fiber, probiotics as well as OTC stool softeners. Recommend trial of Linzess 72 mcg, 145 mcg 290 mcg, samples 8 days each provided to patient in clinic today. We will send prescripti on based on response to sample medication . I did discuss scheduling colonoscop y to further evaluate given her worsening symptoms however patient would like to hold off at this time. Abdominal bloating 87539 9008 R14.0 increased episodes of upper abdominal bloating and pressure with associated nausea. Describes sensation of food sitting in her stomach. Recommend gastric emptying study as above to rule out gastropare sis. EGD with Dr. Rizvi at [facility] 12/17/23 with moderate gastritis noted. CT scan reviewed from [facility] ED 01/2024 noted no acute abnormalit y with stable mild mesenteric stranding in the upper abdomen in the area of the celiac artery and pancreatic head. Normal lipase and LFT's. Health Concerns Section Related Observation LastModified by Organization Detai ls LastModified Time None Recorded Concern Status LastModified by Organization Details LastModified Time None Recorded Advance Directives Directive None Recorded Payers Encounter Date Sequence Insurance Name Policy Number Policy Hayes Covered Member ID Hayes Member ID Guarantor Name 02/04/2024 1 [employer] (MEDICARE REPLACEMENT/ ADVANTAGE - PPO) Thalia Huizar [id number] Thalia Huizar 02/04/2024 2 [place] [employer] - FFS/TRADITIO NAL Thalia Huizar [id number] Thalia Huizar 03/24/2024 1 [employer] (MEDICARE REPLACEMENT/ ADVANTAGE - PPO) Thalia Huizar [id number] Thalia Huizar 03/24/2024 2 [place] [employer] CHOICES - FFS/TRADITIO NAL Thalia Huizar [id number] Thalia Huizar Notes Date Note Type Note Provider Name and Address Organization Details Recorded Time 02/04/2024 text/html 63-year-old femesperanza john with a past medical history cholecystectomy, GERD, hypertension, fibromyalgia, colon polyps, COPD. Patient presents to clinic today for evaluation of right upper quadrant pain. Symptoms began 2 weeks ago which she describes as sharp radiating to her back. Pain was constant with associated nausea and abdominal bloating after meals which she reports recently improved. She was evaluated [facility] ED with CT and labs performed which she reports as normal however I do not have those records to review today. She continues Pantoprazole for treatment of GERD and was recently prescribed Famotidine as well. She has decreased portion sizes with improvement. She had an EGD with Dr. Kamlesh Rizvi at [facility] 12/17/23 with moderate gastritis noted. I do not have pathology to review. She reports controlled constipation with use of stool softeners and fiber. Last colonoscopy 10/2020. Lia Lee NP [address] [facility], [address], [address], [facility] & [place] 02/04/2024 15:31:11 03/24/2024 text/html Patient returns to clinic today for follow-up on right upper quadrant pain. Since she was last seen in clinic she was diagnosed with shingles, which was contributing to her RUQ pain and has since resolved. She was previously prescribed Carafate for gastritis that was noted on EGD with Dr. Rizvi at [facility] 12/17/23. She could not tolerate carafate therefore discontinued. She continues pantoprazole as well as Famotidine with controlled GERD symptoms. She describes continued episodes of nausea and dyspepsia with sensation of food sitting in her stomach. Experiencing increased constipation with use of fiber, stool softeners, and probiotics. CT scan reviewed from [facility] ED 01/2024 noted no acute abnormality with stable mild mesenteric stranding in the upper abdomen in the area of the celiac artery and pancreatic head. Last colonoscopy 10/2020. Lia Lee NP [address] [facility], [address], [place], [address], [facility] & [place] 03/24/2024 15:32:51 OBGyn Episode No OBEpisode recorded.
[2024-10-22 16:21] LABS: Basophils # 0.1 K/mm3 (0-0.2); Basophils % 0.8 % (0.1-2.0); Eosinophils # 0.4 K/mm3 (0.0-0.4); Eosinophils % 5.2 % (0.1-12.0); Hematocrit 40.2 % (37.0-47.0); Hemoglobin 12.6 g/dL (12.2-16.2); Lymphocytes # 2.1 K/mm3 (0.7-4.5); Lymphocytes % 25.5 % (10-50); Mean Corpuscular HGB Conc 31.3 g/dL (31.8-35.4); Mean Corpuscular Hemoglobin 26.8 pg (27.0-31.2); Mean Corpuscular Volume 85.4 fl (81-99); Mean Platelet Volume 9.1 fl (7.4-10.4); Monocytes # 0.5 K/mm3 (0.1-1.0); Monocytes % 5.7 % (1.7-9.3); Neutrophils # 5.3 K/mm3 (1.8-7.8); Neutrophils % 62.7 % (37.0-80.0); Nucleated Red Blood Cells # 0 10^3/uL; Nucleated Red Blood Cells % 0 %; Platelet Count 317 K/mm3 (142-424); Red Blood Count 4.71 M/mm3 (4.20-5.40); Red Cell Distribution Width 14.2 % (11.5-17.5); Red Cell Distribution Width-SD 43.8 fL; White Blood Count 8.4 K/mm3 (4.8-10.8)
[2024-10-22 17:05] LABS: Alanine Aminotransferase 20 U/L (12-78); Albumin Level 4.2 g/dl (3.5-5.0); Alkaline Phosphatase 93 U/L (38-126); Anion Gap 14.8 mEq/L (5-15); Aspartate Amino Transferase 21 U/L (14-36); Bilirubin,Direct 0.2 mg/dl (0.0-0.4); Bilirubin,Indirect 0.3 mg/dL (0.0-0.9); Bilirubin,Total 0.5 mg/dl (0.2-1.3); Bilirubin,Unconjugated 0.3 mg/dL (0.0-1.1); Blood Urea Nitrogen 16 mg/dl (7-17); Calcium 9.3 mg/dl (8.4-10.2); Carbon Dioxide 27 mmol/L (22.0-30.0); Chloride 101 mmol/L (98-107); Chol/HDL Ratio 3.2 (1-3.5); Cholesterol 190 mg/dl (140-200); Estimated Glomerular Filt Rate 63 ml/min (>60); GFR (African American) 76 ML/MIN (>60); Glucose 116 mg/dl (74-100); HDL Cholesterol 59 mg/dl (40-60); Potassium 3.8 mmoL/L (3.5-5.1); Sodium 139 mmol/L (136-145); Total Protein,Serum 7.3 g/dl (6.3-8.2); Triglycerides 121 mg/dl (30-150); VLDL Cholesterol 24 mg/dL (0-40)
[2024-10-22 17:16] LABS: Direct LDL Cholesterol 98.58 mg/dL (100-129)
[2024-10-22 17:22] LABS: Free T4 (Free Thyroxine) 1.43 ng/dl (0.78-2.19)
[2024-10-22 17:35] LABS: Thyroid Stimulating Hormone 1.07 uIU/mL (0.465-4.68)
== END 2024-10-22 23:59 | disposition home or self-care (01) ==
LOC: LAB 15:25
PROVIDERS: PCP Internal Medicine Adolescent Medicine; Visit Provider Nurse Practitioner
DX: I25.118 Atherosclerotic heart disease of native coronary artery with other forms of angina pectoris (principal); I10 Essential (primary) hypertension; R25.2 Cramp and spasm; R53.1 Weakness
CPT/HCPCS: 36415; 80048; 80061; 80076; 83735; 84439; 84443; 85025